=== PATIENT | male | born 1950 | race Caucasian/White ===

== ENCOUNTER 2023-10-18 18:08 | Inpatient (IN) ==
--- OUTSIDE RECORDS SUMMARY | 2023-10-18 18:11 | External Medical Summary | Summary of Care ---
Author Name Unknown Organization [facility] Address [address] [facility] [place] [address] Phone [phone] Care Team Providers Care Repair Order Clerk Name Role Phone Sriram Dale MD Primary Care Provider [phone] Reason for Visit * Reason Comments Follow Up Pt here for full ski n exam. Hx of non-melanoma skin cancer. No areas of concern. Encounter Details Date Type Department Care Team (Late st Contact Info) Description 07/03/2023 10:20 AM EDT Office Visit Dermatology [facility] [address] [place] [id number] Tiffany Weiss PA-C [address] [place] [address] Skin exam, screening for cancer*; Suhail's disease; Hx of basal cell carcinoma; Scar; Inflamed seborrheic keratosis Allergies Active Allergy Reactions Criticality Noted Date Comments Acetaminophen Medium 05/17/2004 rash Environmental 05/17/2004 documented as of this encounter (statuses as of 07/04/2023) Medications Medication Sig Dispensed Refills Start Date End Date Status tamsulosin (FLOMAX) 0.4 MG Capsule 0 10/31/2019 Active Azithromycin 250 MG Oral Tablet (Zithromax) 0 01/17/2021 Active Triamcinolone Acetonide 0.1 % External Cream (Aristocort)Indica tions:[place]'s disease Apply to lesions two times a day x 1 week and as needed for itching. 80 g 0 07/03/2023 Active Triamcinolone Acetonide 0.1 % External Cream (Aristocort)Indica tions:[place]'s disease Apply to rash on the back twice daily x 1 week and as needed for itching. 80 g 0 06/19/2022 07/03/2023 Discontinued( Refill) documented as of this encounter (statuses as of 07/04/2023) Active Problems Problem Noted Date Diagnosed Date Hx of basal cell carcinoma 02/16/2021 Overview: BCC L upper cutaneous lip 2018 and central upper back 2019 History of nonmelanoma skin cancer 11/27/2019 Overview: BCC central upper back 12/03 CERVICAL DISC DEGEN- congenital fusion C3-C4 Allergic disorder 05/17/2004 Overview: environmental documented as of this encounter (statuses as of 07/04/2023) Immunizations Name Administration Dates Next Due Seasonal Influenza, Split, IIV3, With Preserve, Inj 01/12/2010,12/15/2008 TD - Tetanus/Diptheria (ADULT) 03/17/1994 TDAP (age 11 and older)(Adacel) 10/05/2008 documented as of this encounter Social History Tobacco Use Types Packs/Day Years Used Date Smoking Tobacco: Never Alcohol Use Standard Drinks/Week Comments Yes 0 (1 standard drink = 0.6 oz pure alcohol) daily-glass of wine with dinner Sex and Gender Information Value Date Recorded Sex Assigned at Not on file Gender Identity Not on file Sexual Orientation Not on file Job Start Date Occupation Industry Not on file Not on file Not on file documented as of this encounter Progress Notes * Long Singh MD - 07/04/2023 9:43 PM EDT I have reviewed the charting notes and orders and associated images and agree with the assessment and plan of Tiffany Weiss PA-C I was available for consultation during and after the visit Long Singh MD 07/04/2023 9:43 PM * Tiffany Weiss PA-C - 07/03/2023 10:22 AM EDT SUBJECTIVE: History of Present Illness: Dirk Amin is a 72 year old male seen today for follow up of skin check. Date Last Appointment: 06/19/2022 (in office), Visit date not found (telemedicine) BCC L upper cutaneous lip 2018 and central upper back 2018 Hx Grovers, hasn't really needed it at all this year, uses triamcinolone 0.1% as needed Uses sunscreen New lesions of concern: L shoulder lesion for a few months REVIEW OF SYSTEMS: SKIN: No other new or changing moles. HEME/LYMPH: No new or enlarging lumps or bumps. MEDICA TIONS: Current Outpatient Medications Medication Sig Dispense Refill tamsulosin (FLOMAX) 0.4 MG Capsule Triamcinolone Acetonide 0.1 % External Cream (Aristocort) Apply to rash on the back twice daily x 1week and as needed for itching. 80 g 0 Azithromycin 250 MG Oral Tablet (Zithromax) (Patient not taking: Reported on 06/19/2022) No current facility-administered medications for this visit. ALLERG IES: Acetaminophen and Environmental OBJECTIVE: GEN: Healthy, alert, no distress, appears oriented, pleasant, and cooperative. SKIN: Detailed exam of hair, face including lids and lips, neck, chest, abdomen, back, bilateral upper ext. (arm, hand, fingers), bilateral lower ext. (leg, foot, toes), and palpation of scalp completed and are normal except: Scars- lip, upper back 2. R hip and L buttocks- tiny skin colored pedunculated papules 3. L upper back- open comedone ASSESS MENT/PLAN: Hx NMSC - no evidence of recurrence Discussed sun protection with patient including proper use of sunscreens and protective clothing. 2. ISKs. Cryosurgery explained to the patient, consent obtained, patient, site and procedure verified, and then cryotherapy was performed with Liquid Nitrogen via cryo spray unit to 2 lesions. Location noted in physical exam. Post op course explained. 3. Dilated pore of kaylin. Benign nature was discussed and no further intervention needed. Advised to call with any changes. 4. Hx of Grovers, triamcinolone as needed, refilled Follow-up: 1 year complex There were no barriers tolearning and no other pain was related to today's visit. The patient and/or person accompanying patient demonstrates understanding of the visit and treatment. Tiffany Weiss PA-C 07/03/2023 10:22 AM documented in this encounter Nursing Notes * Savana Warner LPN - 07/03/2023 10:16 AM EDT Patient identified by full name and date of Chief Complaint Patient presents with Follow Up Pt here for full skin exam. Hx of non-melanoma skin cancer. No areas of concern. documented in this encounter Plan of Treatment Upcoming Encounters Date Type Department Care Team (Late st Contact Info) Description 07/08/2024 1:40 PM EDT Office Visit Dermatology [facility] [address] [facility] [place] [address] Tiffany Weiss PA-C [address] [facility] [place] [address] Scheduled Procedures Name Priority Associated Diagnoses Date/Ti me COLONOSCOPY FLEXIBLE PROXIMA L DIAGNOSTIC Recall Special screening for malignant neoplasms, colon Health Maintenance Due Date Last Done Comments Depression Screening 1962 Hepatitis C Screening 1968 Cologuard 11/19/1995 Fecal Occult Blood Test 11/19/1995 Sigmoidoscopy 11/19/1995 Zoster Vaccines (1 of 2) 2000 Pneumococcal Vaccine: 65+ Years (1 of 1 - PCV) 11/19/2015 DTaP,Tdap,and Td Vaccines (2 - Td or Tdap) 10/05/2018 10/05/2008, 03/17/1994 Lipid Panel 07/09/2019 07/08/2014, 03/06/2009, 05/28/2004 COVID-19 Vaccine (1 - 2022-2 4 season) 2022 Influenza Vaccine (FLU shot) (Season Ended) 2023 01/12/2010, 12/15/2008 Colonoscopy 08/01/2024 08/01/2014, 08/01/2014, 08/02/2004 Colorectal Cancer Screening 08/01/2024 GARDASIL-HPV IMMUNIZATION SERIES Aged Out No longer eligible b ased on patient's age to complete this topic Hepatitis B Aged Out No longer eligi ble based on patient's age to complete this topic MENINGOCOCCAL (MENACTRA/MENVEO) Aged Out No longer eligible b ased on patient's age to complete this topic documented as of this encounter Medical Devices Not on filedocumented as of this encounter Procedures Procedure Name Priority Date/Time Associated Diagnosis Comments DERM IMAGE (SITE) Routine 07/03/2023 Inflamed seborrheic keratosis documented in this encounter Results * DERM IMAGE (SITE) (07/03/2023) 07/03/2023 Tiffany Weiss PA-C DIGITAL PHOTOGR APHY documented in this encounter Visit Diagnoses Diagnosis Skin exam, screening for cancer- Primary Screening for malignant neoplasm of the skin [place]'s disease Other specified dermatoses Hx of basal cell carcinoma Personal history of other malignant neoplasm of skin Scar Scar condition and fibrosis of skin Inflamed seborrheic keratosis documented in this encounter Care Teams Repair Order Clerk Relationship Specialty Start Date End Date Sriram Dale MD [address] [place] [address] PCP - General Family Medicine 07/04/14 documented as of this encounter
--- OUTSIDE RECORDS SUMMARY | 2023-10-18 18:11 | External Medical Summary | Continuity of Care Document ---
Author Name Unknown Organization [facility] Address [address] [place] [address] Phone [phone] Social History Type Date Description Comments Sex Unknown Tobacco Use Start: Unknown Never Smoked Cigarettes Tobacco Use Start: Unknown Never Smoked Cigars Tobacco Use Start: Unknown Never Smoked A Pipe Smoking Status Reviewed: 07/23/23 Never Smoked A Pipe Smokeless Tobacco Never Used Smokeless To bacco Allergies and adverse reactions Active Allergies Criticality Reaction | Severity Comments Date Acetaminophen Unable to assess criticality 07/23/2023 Environmental Unable to assess criticality 07/23/2023 Medications Active Medications SIG Qnty Indications Order ing Provider Date Triamcinolone Acetonide0.1% Cream Apply to lesions two times a day x 1 week and as needed for itching. 80units Unknown 07/03/2023 Tamsulosin HCL0.4mg Capsules Take one tab twice a day 60caps Daria Mcdaniel MD 10/31/2019 Sildenafil [id number] Tablets Take 100 mg once daily as needed 1 hour before sexual activity 18tabs Daria Mcdaniel MD Immunizations CPT Code Status Date Vaccine Lot # [id number] Given 01/12/2010 Influenza Vac, Split 3 Yr s And Up [address] Given 12/15/2008 Influenza Vac, Split 3 Yr s And Up [address] Given 10/05/2008 Tdap (Tetanus, diphtheria & acel. pertussis) Adacel or Boostrix 35896 Given 03/17/1994 Td (Tetanus & Diphtheria) Tenivac Vital Signs Date Vital Result Comment 07/23/2023 1:50pm BP Systolic 164 mmHg BP Diastolic 98 mmHg BP Systolic Recheck 162 mmHg BP Diastolic Recheck 90 mmHg Body Temperature 97.5 F Heart Rate 82 /min Respiratory Rate 14 /min Weight 177.50 lb Weight 80.514 kg Height 69 inches 5'9" BMI (Body Mass Index) 26.2 kg/m2 O2 % BldC Oximetry 98 % [place] Body Weight 160 lb Results Test Acquired Date Facility Test Result H/L Range N ote CBC W/Diff 07/23/2023 [facility]. [address] [place] [address] [phone] WBC 7.5 10^3/M3 3.1-9.2 RBC 4.56 10^6/M3 4.00-5.80 HGB 15.2 GR/DL 12.5-17.5 HCT 44.4 % 37.5-52.5 MCV 97.4 CUMICR High 82.6-95.8 MCH 33.4 PICOGR High 27.9-32.9 MCHC 34.3 % 32.6-35.4 RDW 14.3 % 11.4-14.6 PLT 280 10^3/M3 140-350 MPV 8.3 CUMICR 7.0-10.6 %Neut 63.9 % 40.0-75.0 %Lymph 24.4 % 17.0-45.0 %[place] 10.0 % 1.0-11.0 %Eos 0.8 % 0.0-6.0 %Baso 0.9 % 0.0-2.0 #Neut 4.8 10^3/M3 1.5-8.0 #Lymph 1.8 10^3/M3 0.8-3.2 #[place] 0.8 10^3/M3 0.0-0.8 #Eos 0.1 10^3/m3 0.0-0.4 #Baso 0.1 10^3/m3 0.0-0.2 Comp. Met 07/23/2023 [facility]. [address] [place] [address] [phone] Glucose 95 mg/dL 70-110 BUN 20 mg/dL 6-25 Creatinine 1.3 mg/dL 0.7-1.3 Sodium 144 mEq/L 135-145 Potassium 4.7 mEq/L 3.5-5.0 Chloride 105 mEq/L 95-107 Co-2 26 mEq/L 24-31 Alk Phos 65 IU/L 43-122 Alt(SGPT) 24 IU/L 10-40 Ast(Sgot) 29 IU/L 3-42 T.Bilirubin 0.6 mg/dL 0.1-1.3 Calcium 9.5 mg/dL 8.5-10.6 Tot.Protein 7.7 g/dL 5.8-8.0 Albumin 4.4 g/dL 3.0-5.2 Globulin 3.3 g/dL 2.0-3.4 GFR 58 ML/MIN/1.73SQM Low >60 Hba1c 07/23/2023 [facility] [address] [place], [place] [id number] [phone] A1c 5.40 % 4.70-6.50 1 Lipid 07/23/2023 [facility] [address] [place], [place] [id number] [phone] Cholesterol 260 mg/dL High 0-200 2 Triglyceride 103 mg/dL 0-150 3 HDLD 51 mg/dL See Comment 4 Measured LDL 207 mg/dL High 0-130 5 Calc VLDL 20.6 mg/dL See Comment 6 Chol/HDL 5.1 RATIO See Comment 7 Non-HDL 209 mg/dL See Comment 8 Laboratory test finding 07/23/2023 [facility]. [address] [place] [address] [phone] Psa2 12.7 ng/mL Critical high 0.0-4.0 TSH With Reflex 07/23/2023 [facility]. [address] [place] [address] [phone] TSH (Reflex) 1.45 uIU/mL 0.50-6.00 1 MEAN GLUCOSE IN mg/d L/A1c% POOR CONTROL FAIR CONTROL GOOD CONTROL EXCELLENT CONTROL 360-14 210-9 180-8 120-6 330-13 150-7 90-5 300-12 270-11 240-10 2 CHOLESTEROL Less than 200mg/dl Low risk 201-239 mg/dl Borderline risk Equal to or greater 240mg/dl High risk 3 TRIGLYCERIDES Less than 150mg/dl Normal 150-199mg/dl Borderline 200-499mg/dl High Greater than 500mg/dl Very High 4 HDL <40mg/dl Elevated Risk 41-59mg/dl Risk >=60mg/dl Least Risk 5 LDL <100mg/dl Optimal 100-129mg/dl Near Optimal 130-159mg/dl Borderline High 160-189mg/dl High >=190 Very High 6 VLDL Less than 30mg/dl Normal 7 CHOL/HDL <4.0 Optimal 4.0-5.0 Borderline >6.0 High Risk 8 NON-HDL 30mg/dl higher than LDL Target Procedures Date Code Description Status 07/23/2023 G0103 PSA Blood Screen Completed 07/23/2023 42699 Venipuncture Routine Complet ed Medical Devices Description No Information Available Encounters Type Date Location Provider Dx Diagnosis Office Visit 07/23/2023 2:00p [facility] Daria Mcdaniel MD N52.9 Male erectile dysfunction, unspecified R39.12 Poor urinary stream R03.0 Elevated blood-press ure reading, w/o diagnosis of htn Z13.220 Encounter for screen ing for lipoid disorders Z13.1 Encounter for screen ing for diabetes mellitus Z12.5 Encounter for screen ing for malignant neoplasm of prostate Z13.6 Encounter for screen ing for cardiovascular disorders Assessments Date Code Description Provider 07/23/2023 N52.9 Male erectile dysfunction, u nspecified Daria Mcdaniel MD 07/23/2023 R39.12 Weak urinary steam Daria wyatt MD 07/23/2023 R03.0 Elevated blood-p ressure reading, without diagnosis of hypertension Daria Mcdaniel MD 07/23/2023 Z13.220 Encounter for screening for lipoid disorders Daria Mcdaniel MD 07/23/2023 Z13.1 Encounter for screening for diabetes mellitus Daria Mcdaniel MD 07/23/2023 Z12.5 Encounter for sc reening for malignant neoplasm of prostate Daria Mcdaniel MD 07/23/2023 Z13.6 Encounter for sc reening for cardiovascular disorders Daria Mcdaniel MD Plan of Treatment Future Appointment(s):* 07/30/2023 10:30 am - Daria Mcdaniel MD at [facility] * 01/15/2024 2:00 pm - Daria Mcdaniel MD at [facility] 07/23/2023 - Daria Mcdaniel MD* N52.9 Male erectile dysfunction, unspecified* Comments:* Continue current medication as needed * R39.12 Weak urinary steam* Comments:* Continue current medication * R03.0 Elevated blood-pressure reading, without diagnosis of hypertension* Comments:* BP elevated today, Pt denies any symptoms Home BP readings within normal limit, ? white coat syndrome recommended to bring BP apparatus to clinic * Z13.220 Encounter for screening for lipoid disorders* Comments:* Lipid panel ordered * Z13.1 Encounter for screening for diabetes mellitus* Comments:* HbA1c ordered * Z12.5 Encounter for screening for malignant neoplasm of prostate* Comments:* will check PSA level * Z13.6 Encounter for screening for cardiovascular disorders Functional Status Description No Information Available Mental Status Description No Information Available Referrals Description No Information Available
--- OUTSIDE RECORDS SUMMARY | 2023-10-18 18:11 | External Medical Summary | Continuity of Care Document ---
Author Name Unknown Organization [facility] Address [address] [place] [address] Phone [phone] Problems Active Problems Provider Date Chronic kidney disease stage 3A Daria Mcdaniel MD Onset: 07/30/2023 Hyperlipidemia Daria Mcdaniel MD Onset: 2023 Social History Type Date Description Comments Sex [...] day 60caps Daria Mcdaniel MD 10/31/2019 Sildenafil [id number] Tablets Take 100 mg once daily as needed 1 hour before sexual activity 18tabs Daria Mcdaniel MD Immunizations CPT Code Status Date Vaccine Lot # [id number] Given 01/12/2010 Influenza Vac, Split 3 Yr s And Up [address] Given 12/15/2008 Influenza Vac, Split 3 Yr s And Up [address] Given 10/05/2008 Tdap (Tetanus, diphtheria & acel. pertussis) Adacel or Boostrix 34877 Given 03/17/1994 Td (Tetanus & Diphtheria) Tenivac [...] kg/m2 O2 % BldC Oximetry 98 % [place] Body Weight 160 lb Results Test Acquired Date Facility Test Result H/L Range N ote Laboratory test finding 09/01/2023 [facility]. [address] [place], [place] [id number] PSA Screen 11.6 ng/mL Critical high 0.0-4.0 CBC W/Diff 07/23/2023 [facility]. [address] [place] [address] [phone] WBC 7.5 10^3/M3 3.1-9.2 RBC 4.56 10^6/M3 4.00-5.80 HGB 15.2 GR/DL 12.5-17.5 HCT 44.4 % 37.5-52.5 MCV 97.4 CUMICR High 82.6-95.8 MCH 33.4 PICOGR High 27.9-32.9 MCHC 34.3 % 32.6-35.4 RDW 14.3 % 11.4-14.6 PLT 280 10^3/M3 140-350 MPV 8.3 CUMICR 7.0-10.6 %Neut 63.9 % 40.0-75.0 %Lymph 24.4 % 17.0-45.0 %[place] 10.0 % 1.0-11.0 %Eos 0.8 % 0.0-6.0 %Baso 0.9 % 0.0-2.0 #Neut 4.8 10^3/M3 1.5-8.0 #Lymph 1.8 10^3/M3 0.8-3.2 #[place] 0.8 10^3/M3 0.0-0.8 #Eos 0.1 10^3/m3 0.0-0.4 #Baso 0.1 10^3/m3 0.0-0.2 Comp. Met 07/23/2023 [facility]. [address] [place] [address] [phone] Glucose 95 mg/dL 70-110 BUN 20 mg/dL [...] GFR 58 ML/MIN/1.73SQM Low >60 Hba1c 07/23/2023 [facility] [address] [place], [place] [id number] [phone] A1c 5.40 % 4.70-6.50 1 Lipid 07/23/2023 [facility] [address] [place] [address] [phone] Cholesterol 260 mg/dL High 0-200 2 Triglyceride 103 mg/dL 0-150 3 HDLD 51 mg/dL See Comment 4 Measured LDL 207 mg/dL High 0-130 5 Calc VLDL 20.6 mg/dL See Comment 6 Chol/HDL 5.1 RATIO See Comment 7 Non-HDL 209 mg/dL See Comment 8 Laboratory test finding 07/23/2023 [facility] [address] [place] [address] [phone] Psa2 12.7 ng/mL Critical high 0.0-4.0 TSH With Reflex 07/23/2023 [facility] [address] [place] [address] [phone] TSH (Reflex) 1.45 uIU/mL 0.50-6.00 1 MEAN [...] LDL Target Procedures Date Code Description Status 09/01/2023 G0103 PSA Blood Screen Completed 09/01/2023 12970 Venipuncture Routine Complet ed 07/30/2023 G2012 Phone Evaluation/Management By Physician 21-30 Min Completed 07/23/2023 G0103 PSA Blood Screen Completed 07/23/2023 50587 Venipuncture Routine Complet ed Medical Devices Description No Information Available Encounters Type Date Location Provider Dx Diagnosis Office Visit 07/30/2023 10:15a Rohith Mcdaniel MD E78.5 Hyperlipidemi a, unspecified R97.20 Elevated prostate sp ecific antigen [PSA] N18.31 Chronic kidney disea se, stage 3a Office Visit 07/23/2023 2:00p Rohith brown MD N52.9 Male erectile dysfunction, unspecified R39.12 Poor urinary stream R03.0 Elevated blood-press ure reading, w/o diagnosis of htn Z13.220 Encounter for screen ing for lipoid disorders Z13.1 Encounter for screen ing for diabetes mellitus Z12.5 Encounter for screen ing for malignant neoplasm of prostate Z13.6 Encounter for screen ing for cardiovascular disorders Assessments Date Code Description Provider 09/01/2023 R97.20 Elevated prostate specific a ntigen [PSA] Lab - [place] 07/30/2023 E78.5 Hyperlipidemia, unspecified Daria Mcdaniel MD 07/30/2023 R97.20 Elevated prostate specific a ntigen [PSA] Daria Mcdaniel MD 07/30/2023 N18.31 Chronic kidney disease, stag e 3a Daria Mcdaniel MD 07/23/2023 N52.9 Male erectile dysfunction, u nspecified [...] Mcdaniel MD Plan of Treatment Future Appointment(s):* 01/15/2024 2:00 pm - Daria Mcdaniel MD at [place] 07/30/2023 - Daria Mcdaniel MD* E78.5 Hyperlipidemia, unspecified* Comments:* Pt declined to start on cholesterol medication at this time and will think about it . Pt verbalize understanding of being aware of risk of high cholesterol level including Cardiac and Stroke
Recommended to follow healthy diet and exercise * R97.20 Elevated prostate specific antigen [PSA]* Comments:* Discussed with the patient in detail of causes of high prostate specific antigen level. Will r epeat lab in 1 month Will consider urology appointment if PSA continue to be high * N18.31 Chronic kidney disease, stage 3a* Comments:* Recommended to avoid NSAID Drink plenty of fluid Will continue to monitor Functional Status Description No Information Available Mental Status Description No Information Available Referrals Description No Information Available
--- OUTSIDE RECORDS SUMMARY | 2023-10-18 18:11 | External Medical Summary | Continuity of Care Document ---
Author Name Unknown Organization [facility] Address [address] [place] [address] Phone [phone] Social History Type Date Description Comments Sex [...] day 60caps Daria Mcdaniel MD 10/31/2019 Sildenafil [id number] Tablets Take 100 mg once daily as needed 1 hour before sexual activity 18tabs Daria Mcdaniel MD Immunizations CPT Code Status Date Vaccine Lot # [id number] Given 01/12/2010 Influenza Vac, Split 3 Yr s And Up [address] Given 12/15/2008 Influenza Vac, Split 3 Yr s And Up [address] Given 10/05/2008 Tdap (Tetanus, diphtheria & acel. pertussis) Adacel or Boostrix 06931 Given 03/17/1994 Td (Tetanus & Diphtheria) Tenivac [...] kg/m2 O2 % BldC Oximetry 98 % [place] Body Weight 160 lb Results Test Acquired Date Facility Test Result H/L Range N ote CBC W/Diff 07/23/2023 [facility]. [address] [place] [address] [phone] WBC 7.5 10^3/M3 3.1-9.2 RBC 4.56 10^6/M3 4.00-5.80 HGB 15.2 GR/DL 12.5-17.5 HCT 44.4 % 37.5-52.5 MCV 97.4 CUMICR High 82.6-95.8 MCH 33.4 PICOGR High 27.9-32.9 MCHC 34.3 % 32.6-35.4 RDW 14.3 % 11.4-14.6 PLT 280 10^3/M3 140-350 MPV 8.3 CUMICR 7.0-10.6 %Neut 63.9 % 40.0-75.0 %Lymph 24.4 % 17.0-45.0 %[place] 10.0 % 1.0-11.0 %Eos 0.8 % 0.0-6.0 %Baso 0.9 % 0.0-2.0 #Neut 4.8 10^3/M3 1.5-8.0 #Lymph 1.8 10^3/M3 0.8-3.2 #[place]ings 0.8 10^3/M3 0.0-0.8 #Eos 0.1 10^3/m3 0.0-0.4 #Baso 0.1 10^3/m3 0.0-0.2 Comp. Met 07/23/2023 [facility]. [address] [place] [address] [phone] Glucose 95 mg/dL 70-110 BUN 20 mg/dL [...] GFR 58 ML/MIN/1.73SQM Low >60 Hba1c 07/23/2023 [facility]. [address] [place], [place] [id number] [phone] A1c 5.40 % 4.70-6.50 1 Lipid 07/23/2023 [facility]. [address] [place], [place] [address] [phone] Cholesterol 260 mg/dL High 0-200 2 Triglyceride 103 mg/dL 0-150 3 HDLD 51 mg/dL See Comment 4 Measured LDL 207 mg/dL High 0-130 5 Calc VLDL 20.6 mg/dL See Comment 6 Chol/HDL 5.1 RATIO See Comment 7 Non-HDL 209 mg/dL See Comment 8 Laboratory test finding 07/23/2023 [facility]. [address] [place] [address] [phone] Psa2 12.7 ng/mL Critical high 0.0-4.0 TSH With Reflex 07/23/2023 [facility]. [address] [place] [address] [phone] TSH (Reflex) 1.45 uIU/mL 0.50-6.00 1 MEAN [...] 07/23/2023 G0103 PSA Blood Screen Completed 07/23/2023 54845 Venipuncture Routine Complet ed Medical Devices Description No Information Available Encounters Type Date Location Provider Dx Diagnosis Office Visit 07/23/2023 2:00p [place] Daria Mcdaniel MD N52.9 Male erectile dysfunction, [...] 2:00 pm - Daria Mcdaniel MD at [place] Functional Status Description No Information Available Mental Status Description No Information Available Referrals Description No Information Available
--- OUTSIDE RECORDS SUMMARY | 2023-10-18 18:11 | External Medical Summary | Summary of Care ---
Author Name Unknown Organization [facility] Address [address] [facility] [facility] [address] Phone [phone] Care Team Providers Care Financial Foundations Representative Name Role Phone Sriram Dale MD Primary Care Provider [phone] Reason for Visit * Reason Comments Follow Up Pt here for full ski n exam. Hx of non-melanoma skin cancer. No areas of concern. Encounter Details Date Type Department Care Team (Late st Contact Info) Description 07/03/2023 10:20 AM EDT Office Visit Dermatology [facility] [address] [place] [address] Tiffany Weiss PA-C [address] [place] [address] Skin exam, screening for cancer*; Suhail's disease; Hx of basal cell carcinoma; Scar; Inflamed seborrheic keratosis Allergies Active Allergy Reactions Criticality Noted Date Comments Acetaminophen Medium 05/17/2004 rash Environmental 05/17/2004 documented as of this encounter (statuses as of 07/03/2023) Medications Medication Sig Dispensed Refills Start Date End Date Status tamsulosin (FLOMAX) 0.4 MG Capsule 0 10/31/2019 Active Azithromycin 250 MG Oral Tablet (Zithromax) 0 01/17/2021 Active Triamcinolone Acetonide 0.1 % External Cream (Aristocort)Indica tions:Jumping Branch's disease Apply to lesions two times a day x 1 week and as needed for itching. 80 g 0 07/03/2023 Active Triamcinolone Acetonide 0.1 % External Cream (Aristocort)Indica tions:Jumping Branch's disease Apply to rash on the back twice daily x 1 week and as needed for itching. 80 g 0 06/19/2022 07/03/2023 Discontinued( Refill) documented as of this encounter (statuses as of 07/03/2023) Active Problems Problem Noted Date Diagnosed Date Hx of basal cell carcinoma 02/16/2021 Overview: BCC L upper cutaneous lip 2018 and central upper back 2019 History of nonmelanoma skin cancer 11/27/2019 Overview: BCC central upper back 12/03 CERVICAL DISC DEGEN- congenital fusion C3-C4 Allergic disorder 05/17/2004 Overview: environmental documented as of this encounter (statuses as of 07/03/2023) Immunizations Name Administration Dates Next Due Seasonal Influenza, Split, IIV3, With Preserve, Inj 01/12/2010,12/15/2008 TDAP (age 11 and older)(Adacel) 10/05/2008 documented [...] as of this encounter Progress Notes * Tiffany Weiss PA-C - 07/03/2023 10:22 AM EDT SUBJECTIVE: History of Present Illness: Dirk Amin is a 72 year old male seen today for follow up of skin check. Date Last Appointment: 06/19/2022 (in office), Visit date not found (telemedicine) BCC L upper cutaneous lip 2018 and central upper back 2019 Hx [place], hasn't really needed it at [...] call with any changes. 4. Hx of Praveen, triamcinolone as needed, refilled Follow-up: 1 year [...] 07/08/2024 1:40 PM EDT Office Visit Dermatology [facility] [address] [place] [address] Tiffany Weiss PA-C [address] [place] [address] Scheduled Procedures Name Priority [...] Not on filedocumented as of this encounter Visit Diagnoses Diagnosis Skin exam, screening for cancer- Primary Screening for malignant neoplasm of the skin Jumping Branch's disease Other specified dermatoses Hx of basal cell carcinoma Personal history of other malignant neoplasm of skin Scar Scar condition and fibrosis of skin Inflamed seborrheic keratosis documented in this encounter Care Teams Financial Foundations Representative Relationship Specialty Start Date End Date Sriram Dale MD [address] [place] [address] PCP - General Family Medicine 07/04/14 documented as of this encounter
--- OUTSIDE RECORDS SUMMARY | 2023-10-18 18:11 | External Medical Summary | Continuity of Care Document ---
Author Name Unknown Organization [facility] Address [address] [place] [address] Phone [phone] Social History Type Date Description Comments Sex [...] day 60caps Daria Mcdaniel MD 10/31/2019 Sildenafil [id number] Tablets Take 100 mg once daily as needed 1 hour before sexual activity 18tabs Daria Mcdaniel MD Immunizations CPT Code Status Date Vaccine Lot # [id number] Given 01/12/2010 Influenza Vac, Split 3 Yr s And Up [address] Given 12/15/2008 Influenza Vac, Split 3 Yr s And Up [address] Given 10/05/2008 Tdap (Tetanus, diphtheria & acel. pertussis) Adacel or Boostrix 97699 Given 03/17/1994 Td (Tetanus & Diphtheria) Tenivac [...] kg/m2 O2 % BldC Oximetry 98 % [place] Body Weight 160 lb Results Test Acquired Date Facility Test Result H/L Range N [place] Laboratory test finding 07/23/2023 [facility]. [address] [place] [address] [phone] Psa2 <pending> Procedures Date Code Description Status 07/23/2023 47297 Venipuncture Routine Complet ed Medical Devices Description No Information Available Encounters Type Date Location Provider Dx Diagnosis Office Visit 07/23/2023 2:00p Rohith Mcdaniel MD N52.9 Male erectile dysfunction, unspecified R39.12 Poor urinary stream R03.0 Elevated blood-press ure reading, w/o diagnosis of htn Z13.220 Encounter for screen ing for lipoid disorders Z13.1 Encounter for screen ing for diabetes mellitus Z12.5 Encounter for screen ing for malignant neoplasm of prostate Assessments Date Code Description Provider 07/23/2023 N52.9 [...] malignant neoplasm of prostate Daria Mcdaniel MD Plan of Treatment Future Appointment(s):* 01/21/2024 2:00 pm - Daria Mcdaniel MD at [facility] 07/23/2023 - Daria Mcdaniel MD* N52.9 Male [...] of prostate* Comments:* will check PSA level Functional Status Description No Information Available Mental Status Description No Information Available Referrals Description No Information Available
--- OUTSIDE RECORDS SUMMARY | 2023-10-18 18:11 | External Medical Summary | Continuity of Care Document ---
Author Name Unknown Organization [facility] Address [address] [place] [address] Phone [phone] Problems Active Problems Provider Date Chronic kidney [...] day 60caps Daria Mcdaniel MD 10/31/2019 Sildenafil [id number] Tablets Take 100 mg once daily as needed 1 hour before sexual activity 18tabs Daria Mcdaniel MD Immunizations CPT Code Status Date Vaccine Lot # [id number] Given 01/12/2010 Influenza Vac, Split 3 Yr s And Up 11233 Given 12/15/2008 Influenza Vac, Split 3 Yr s And Up [address] Given 10/05/2008 Tdap (Tetanus, diphtheria & acel. pertussis) Adacel or Boostrix 95772 Given 03/17/1994 Td (Tetanus & Diphtheria) Tenivac [...] kg/m2 O2 % BldC Oximetry 98 % [place] Body Weight 160 lb Results Test Acquired Date Facility Test Result H/L Range N [place]te Laboratory test finding 09/01/2023 [facility]. [address] [place], [place] [id number] PSA Screen 11.6 ng/mL Critical high 0.0-4.0 CBC W/Diff 07/23/2023 [facility]. [address] [place] [address] [phone] WBC 7.5 10^3/M3 3.1-9.2 RBC 4.56 10^6/M3 4.00-5.80 HGB 15.2 GR/DL 12.5-17.5 HCT 44.4 % 37.5-52.5 MCV 97.4 CUMICR High 82.6-95.8 MCH 33.4 PICOGR High 27.9-32.9 MCHC 34.3 % 32.6-35.4 RDW 14.3 % 11.4-14.6 PLT 280 10^3/M3 140-350 MPV 8.3 CUMICR 7.0-10.6 %Neut 63.9 % 40.0-75.0 %Lymph 24.4 % 17.0-45.0 %[place] 10.0 % 1.0-11.0 %Eos 0.8 % 0.0-6.0 %Baso 0.9 % 0.0-2.0 #Neut 4.8 10^3/M3 1.5-8.0 #Lymph 1.8 10^3/M3 0.8-3.2 #[place] 0.8 10^3/M3 0.0-0.8 #Eos 0.1 10^3/m3 0.0-0.4 #Baso 0.1 10^3/m3 0.0-0.2 Comp. Met 07/23/2023 [facility]. [address] [place] [address] [phone] Glucose 95 mg/dL 70-110 BUN 20 mg/dL [...] GFR 58 ML/MIN/1.73SQM Low >60 Hba1c 07/23/2023 [facility]. [address] [place], [place] [id number] [phone] A1c 5.40 % 4.70-6.50 1 Lipid 07/23/2023 [facility]. [address] [place] [address] [phone] Cholesterol 260 mg/dL High 0-200 2 Triglyceride 103 mg/dL 0-150 3 HDLD 51 mg/dL See Comment 4 Measured LDL 207 mg/dL High 0-130 5 Calc VLDL 20.6 mg/dL See Comment 6 Chol/HDL 5.1 RATIO See Comment 7 Non-HDL 209 mg/dL See Comment 8 Laboratory test finding 07/23/2023 [facility]. [address] [place] [address] [phone] Psa2 12.7 ng/mL Critical high 0.0-4.0 TSH With Reflex 07/23/2023 [facility]. [address] [place] [address] [phone] TSH (Reflex) 1.45 uIU/mL 0.50-6.00 1 MEAN [...] 09/01/2023 G0103 PSA Blood Screen Completed 09/01/2023 54701 Venipuncture Routine Complet ed 07/30/2023 G2012 Phone Evaluation/Management By Physician 21-30 Min Completed 07/23/2023 G0103 PSA Blood Screen Completed 07/23/2023 40199 Venipuncture Routine Complet ed Medical Devices Description [...] specific a ntigen [PSA] Daria Mcdaniel MD 09/01/2023 R97.20 Elevated prostate specific a ntigen [PSA] Lab - [place] 09/01/2023 Z12.5 Encounter for sc reening for malignant neoplasm of prostate Daria Mcdaniel MD 07/30/2023 E78.5 Hyperlipidemia, unspecified Daria Mcdaniel MD [...] 2:00 pm - Daria Mcdaniel MD at [place] 07/30/2023 - Daria Mcdaniel MD* E78.5 Hyperlipidemia, [...]
--- OUTSIDE RECORDS SUMMARY | 2023-10-18 18:11 | External Medical Summary | Continuity of Care Document ---
Author Name Unknown Organization [facility] Address [address] [place] [address] Phone [phone] Social History Type Date Description Comments Sex [...] day 60caps Daria Mcdaniel MD 10/31/2019 Sildenafil [id number] Tablets Take 100 mg once daily as needed 1 hour before sexual activity 18tabs Daria Mcdaniel MD Immunizations CPT Code Status Date Vaccine Lot # [id number] Given 01/12/2010 Influenza Vac, Split 3 Yr s And Up [address] Given 12/15/2008 Influenza Vac, Split 3 Yr s And Up [address] Given 10/05/2008 Tdap (Tetanus, diphtheria & acel. pertussis) Adacel or Boostrix 42344 Given 03/17/1994 Td (Tetanus & Diphtheria) Tenivac [...] kg/m2 O2 % BldC Oximetry 98 % [place] Body Weight 160 lb Results Test Acquired Date Facility Test Result H/L Range N [place]te CBC W/Diff 07/23/2023 [facility]. [address] [place] [address] [phone] WBC 7.5 10^3/M3 3.1-9.2 RBC 4.56 10^6/M3 4.00-5.80 HGB 15.2 GR/DL 12.5-17.5 HCT 44.4 % 37.5-52.5 MCV 97.4 CUMICR High 82.6-95.8 MCH 33.4 PICOGR High 27.9-32.9 MCHC 34.3 % 32.6-35.4 RDW 14.3 % 11.4-14.6 PLT 280 10^3/M3 140-350 MPV 8.3 CUMICR 7.0-10.6 %Neut 63.9 % 40.0-75.0 %Lymph 24.4 % 17.0-45.0 %[place] 10.0 % 1.0-11.0 %Eos 0.8 % 0.0-6.0 %Baso 0.9 % 0.0-2.0 #Neut 4.8 10^3/M3 1.5-8.0 #Lymph 1.8 10^3/M3 0.8-3.2 #[place] 0.8 10^3/M3 0.0-0.8 #Eos 0.1 10^3/m3 0.0-0.4 #Baso 0.1 10^3/m3 0.0-0.2 Comp. Met 07/23/2023 [facility]. [address] [place] [address] [phone] Glucose 95 mg/dL 70-110 BUN 20 mg/dL [...] GFR 58 ML/MIN/1.73SQM Low >60 Hba1c 07/23/2023 [facility]. [address] [place], [place] [address] [phone] A1c 5.40 % 4.70-6.50 1 Lipid 07/23/2023 [facility]. [address] [place], [place] [address] [phone] Cholesterol 260 mg/dL High 0-200 2 Triglyceride 103 mg/dL 0-150 3 HDLD 51 mg/dL See Comment 4 Measured LDL 207 mg/dL High 0-130 5 Calc VLDL 20.6 mg/dL See Comment 6 Chol/HDL 5.1 RATIO See Comment 7 Non-HDL 209 mg/dL See Comment 8 Laboratory test finding 07/23/2023 [facility]. [address] [place] [address] [phone] Psa2 12.7 ng/mL Critical high 0.0-4.0 TSH With Reflex 07/23/2023 [facility]. [address] [place] [address] [phone] TSH (Reflex) 1.45 uIU/mL 0.50-6.00 1 MEAN [...] Target Procedures Date Code Description Status 07/23/2023 11335 Venipuncture Routine Complet ed Medical Devices Description No Information Available Encounters Type Date Location Provider Dx Diagnosis Office Visit 07/23/2023 2:00p [facility] N52.9 Male erectile dysfunction, unspecified [...] 2:00 pm - Daria Mcdaniel MD at [facility] 07/23/2023 - Daria Mcdaniel MD* N52.9 Male [...]
--- OUTSIDE RECORDS SUMMARY | 2023-10-18 18:11 | External Medical Summary | Continuity of Care Document ---
Author Name Unknown Organization [facility] Address [address] [place] [address] Phone [phone] Social History Type Date Description Comments Sex [...] day 60caps Daria Mcdaniel MD 10/31/2019 Sildenafil [id number] Tablets Take 100 mg once daily as needed 1 hour before sexual activity 18tabs Daria Mcdaniel MD Immunizations CPT Code Status Date Vaccine Lot # [id number] Given 01/12/2010 Influenza Vac, Split 3 Yr s [place] [address] Given 12/15/2008 Influenza Vac, Split 3 Yr s And Up [address] Given 10/05/2008 Tdap (Tetanus, diphtheria & acel. pertussis) Adacel or Boostrix 47236 Given 03/17/1994 Td (Tetanus & Diphtheria) Tenivac [...] kg/m2 O2 % BldC Oximetry 98 % [place] Body Weight 160 lb Results Test Acquired Date Facility Test Result H/L Range N ote Laboratory test finding 07/23/2023 [facility]. [address] [place] [address] [phone] Psa2 <pending> Procedures Date Code Description Status 07/23/2023 43850 Venipuncture Routine Complet ed Medical Devices Description [...] 2:00 pm - Daria Mcdaniel MD at [facility] 07/23/2023 - Daria Mcdaniel MD* N52.9 Male [...]
--- OUTSIDE RECORDS SUMMARY | 2023-10-18 18:11 | External Medical Summary | Continuity of Care Document ---
Author Name Unknown Organization [facility] Address [address] [place] [address] Phone [phone] Problems Active Problems Provider Date Chronic kidney [...] day 60caps Daria Mcdaniel MD 10/31/2019 Sildenafil [id number] Tablets Take 100 mg once daily as needed 1 hour before sexual activity 18tabs Daria Mcdaniel MD Immunizations CPT Code Status Date Vaccine Lot # [id number] Given 01/12/2010 Influenza Vac, Split 3 Yr s [place] [address] Given 12/15/2008 Influenza Vac, Split 3 Yr s And Up [address] Given 10/05/2008 Tdap (Tetanus, diphtheria & acel. pertussis) Adacel or Boostrix 74680 Given 03/17/1994 Td (Tetanus & Diphtheria) Tenivac [...] kg/m2 O2 % BldC Oximetry 98 % [employer] Body Weight 160 lb Results Test Acquired Date Facility Test Result H/L Range N ote CBC W/Diff 07/23/2023 [facility] Lab. [address] [place] [address] [phone] WBC 7.5 10^3/M3 3.1-9.2 RBC 4.56 10^6/M3 4.00-5.80 HGB 15.2 GR/DL 12.5-17.5 HCT 44.4 % 37.5-52.5 MCV 97.4 CUMICR High 82.6-95.8 MCH 33.4 PICOGR High 27.9-32.9 MCHC 34.3 % 32.6-35.4 RDW 14.3 % 11.4-14.6 PLT 280 10^3/M3 140-350 MPV 8.3 CUMICR 7.0-10.6 %Neut 63.9 % 40.0-75.0 %Lymph 24.4 % 17.0-45.0 %[place] 10.0 % 1.0-11.0 %Eos 0.8 % 0.0-6.0 %Baso 0.9 % 0.0-2.0 #Neut 4.8 10^3/M3 1.5-8.0 #Lymph 1.8 10^3/M3 0.8-3.2 #[place] 0.8 10^3/M3 0.0-0.8 #Eos 0.1 10^3/m3 0.0-0.4 #Baso 0.1 10^3/m3 0.0-0.2 Comp. Met 07/23/2023 [facility]. [address] [place] [address] [phone] Glucose 95 mg/dL 70-110 BUN 20 mg/dL [...] GFR 58 ML/MIN/1.73SQM Low >60 Hba1c 07/23/2023 [facility]. [address] [place] [address] [phone] A1c 5.40 % 4.70-6.50 1 Lipid 07/23/2023 [facility]. [address] [place] [address] [phone] Cholesterol 260 mg/dL High 0-200 2 Triglyceride 103 mg/dL 0-150 3 HDLD 51 mg/dL See Comment 4 Measured LDL 207 mg/dL High 0-130 5 Calc VLDL 20.6 mg/dL See Comment 6 Chol/HDL 5.1 RATIO See Comment 7 Non-HDL 209 mg/dL See Comment 8 Laboratory test finding 07/23/2023 [facility]. [address] [place], [place] [address] [phone] Psa2 12.7 ng/mL Critical high 0.0-4.0 TSH With Reflex 07/23/2023 [facility]. [address] [place], [place] [address] [phone] TSH (Reflex) 1.45 uIU/mL 0.50-6.00 1 MEAN [...] LDL Target Procedures Date Code Description Status 07/30/2023 G2012 Phone Evaluation/Management By Physician 21-30 Min Completed 07/23/2023 G0103 PSA Blood Screen Completed 07/23/2023 20141 Venipuncture Routine Complet ed Medical Devices Description [...] cardiovascular disorders Assessments Date Code Description Provider 07/30/2023 E78.5 Hyperlipidemia, unspecified Daria Mcdaniel MD [...] 2:00 pm - Daria Mcdaniel MD at [facility] 07/30/2023 - Daria Mcdaniel MD* E78.5 Hyperlipidemia, [...]
[2023-10-18] MEDS: fentaNYL citrate PF 100 MCG/2 ML VIAL ONE ×2 (18:24→19:59)
[2023-10-18] MEDS: HEPARIN SOD (PORCINE) 1000 UNIT/ML IV ONE (18:24)
[2023-10-18] MEDS: TICAGRELOR 90 MG TAB PO ONE (18:24)
[2023-10-18] MEDS: ONDANSETRON INJ 2 MG/ML 2 ML VIAL ONE (18:37)
[2023-10-18] MEDS: ONDANSETRON INJ 2 MG/ML 2 ML VIAL IV STA (18:37)
--- NOTE | 2023-10-18 18:38 | XRay Report ---
XR chest 1V portable CLINICAL HISTORY: Chest pain, nonspecific TECHNIQUE: Single frontal radiograph of the chest was obtained. Comparison: None available at the time of this dictation. FINDINGS: No lines and tubes are seen. Calcified aortic knob is seen. The lungs are clear. No evidence of pleur al effusion or pneumothorax. IMPRESSION: No acute chest disease. ACT 112: Negative or not required by law. Electronically signed by: Reji Correia M.D. 10/18/2023 6:36 PM
[2023-10-18 18:39] LABS: iSTAT Creatinine 1.5 mg/dl (0.6-1.3); iSTAT Hemoglobin 13.6 g/dl (14.0-18.0); iSTAT Ionized Calcium 1.04 mmol/l (1.12-1.32); iSTAT Potassium 3.9 mmol/L (3.3-5.0)
[2023-10-18 18:58] LABS: Basophils # (auto) 0.05 K/uL (0.00-0.20); Basophils % (auto) 0.6 %; Eosinophils # (auto) 0.07 K/uL (0.00-0.50); Eosinophils % (auto) 0.8 %; Hematocrit (blood only) 41.3 % (42.0-52.0); Hemoglobin 14.1 g/dl (14.0-18.0); Immature Granulocytes # (auto) 0.02 K/uL (0.01-0.20); Immature Granulocytes % (auto) 0.2 %; Lymphocytes % (auto) 37.5 %; Mean Corpuscular Hemoglobin 31.3 pg (25.0-34.0); Mean Corpuscular Hgb Conc 34.1 g/dL (32.0-36.0); Mean Corpuscular Volume 91.8 fL (80.0-100.0); Mean Platelet Volume 9.3 fL (9.4-12.4); Monocytes # (auto) 0.74 K/uL (0.11-0.59); Monocytes % (auto) 8.4 %; Neutrophils # (auto) 4.61 K/uL (1.40-6.50); Neutrophils % (auto) 52.5 %; Platelet Count 262 K/uL (130-400); RDW Standard Deviation 44.1 fL (36.4-46.3); White Blood Count 8.79 K/ul (4.8-10.8)
[2023-10-18 19:16] LABS: Albumin Globulin Ratio 1.3 (0.9-2); Albumin Level 3.8 gm/dl (3.4-5.0); BUN Creatinine Ratio 14.4 (10-20); Bilirubin,Total 0.5 mg/dl (0.2-1.0); Calcium 9.1 mg/dl (8.6-10.3); Creatinine Clr Calc Pharmacy 55.6 ml/min; Est GFR (African American) 58.3 ml/min; Est GFR (Non-African American) 50.3 ml/min; Globulin 2.9 gm/dl (2.5-4.0); Magnesium 1.8 mg/dl (1.7-2.4); Total Protein 6.7 gm/dl (6.0-8.3)
[2023-10-18 19:22] LABS: Troponin I High Sensitivity 3.6 pg/ml (0-20)
[2023-10-18 19:28] LABS: Partial Thromboplastin Ratio 0.9; Partial Thromboplastin Time 23 Seconds (21-31)
[2023-10-18 19:32] LABS: Thyroid Stimulating Hormone 1.466 uIu/ml (0.300-4.500)
[2023-10-18] MEDS: DOPamine 400MG / 250ML D5W (Cath Lab Use ONLY) IV ONE (19:44)
[2023-10-18] MEDS: AMIODARONE HCL INJ 50 MG/ML 3 ML VIAL (CATH LAB USE ONLY) IV ONE (19:44)
[2023-10-18] MEDS: NITROGLYCERIN/D5W 100MCG/ML 20ML SYR ONE (19:45)
[2023-10-18] MEDS: niCARdipine HCL INJ 2.5 MG/ML 10 ML AMP ONE (19:45)
[2023-10-18] MEDS: MIDAZOLAM HCL 1 MG/ML 2ML VIAL ONE (19:57)
[2023-10-18] MEDS ORDERED: EPTIFIBATIDE BOLUS/DRIP IV STA (20:14)
[2023-10-18] MEDS ORDERED: NITROGLYCERIN SL 0.4 MG/TAB TAB SL PRN (20:14)
[2023-10-18] MEDS ORDERED: Heparin IV Adult Wt-Based Standard *NO* INITIAL Bolus Protocol IV STA (20:31)
--- NOTE | 2023-10-18 20:33 | Pre Anesthesia Assessment ---
Date of Service October 18, 2023 Pre Sedation Assessment Vital Signs Temp Pulse Resp BP Pulse Ox O2 Del Method O2 Flow Rate 10/18/23 18:27 72 29 H 10/18/23 18:25 109/64 10/18/23 18:25 109/64 10/18/23 18:25 109/64 10/18/23 18:22 108/68 10/18/23 18:22 98 Room Air 10/18/23 18:22 98 Room Air 0 10/18/23 18:18 108/76 10/18/23 18:18 68 32 H 10/18/23 18:18 71 10/18/23 18:15 36.4 C L 67 28 H 108/68 97 Room Air Cardiovascular RRR, no murmur, no edema Respiratory normal respiratory effort, lungs clear to auscultation Pre-Sedation Airway Assessment Smoking Status: Never smoker MALLAMPATI 2 ASA 4 Notes The planned sedation has been discussed with the patient. Informed Consent was obtained. I have identified the patient, determined the appropriateness of sedation and have assessed the patient immediately prior to the procedure. All medicine(s) and interventions are by my order.
--- NOTE | 2023-10-18 20:36 | Post Anesthesia Assessment ---
Date of Service October 18, 2023 Post Sedation Assessment Vital Signs Temp Pulse Resp BP Pulse Ox O2 Del Method O2 Flow Rate 10/18/23 18:27 72 29 H 10/18/23 18:25 109/64 10/18/23 18:25 109/64 10/18/23 18:25 109/64 10/18/23 18:22 108/68 10/18/23 18:22 98 Room Air 10/18/23 18:22 98 Room Air 0 10/18/23 18:18 108/76 10/18/23 18:18 68 32 H 10/18/23 18:18 71 10/18/23 18:15 36.4 C L 67 28 H 108/68 97 Room Air Recovery Score Activity: Moves 4 extremities Respiration: Deep Breath/Cough Circulation: +/-20% PreAnes Value Consciousness: Fully Awake Oxygen Saturation: > 92% On Room Air Discharge Sedation Level of Care: Fast Track Phase II Post Sedation Plan On clinical assessment, the patient appears to have tolerated the sedation without complications. Patient is recovering as anticipated. Patient will continue to be monitored by nursing and may be discharged when sedation discharge criteria are met per below protocol. Upon Completions of procedure up to 15 minutes continue every 5 minute vital signs and the P.A.R. score; then discharge to a Phase I or Fast Track to Phase II per the following guidelines: * Discharge Patient to appropriate Phase II area if PAR is 8 or greater or return to pre- procedure baseline. The post - procedure orders will be as directed. * If PAR score is less than 8 or not return to pre-procedure baseline then patient will follow Phase I monitoring till PAR is reached for Phase II. The Phase I may be done in procedure room or may call to secure a Phase I area. * If naloxone or flumazenil are used for reversal, hold in Phase I for continued monitoring from when last reversal dose was given for a minimum of 60 minutes or longer pending the nurse and/or physician discretion of patient condition before discharge to Phase II. Please call the Sedation Physician to re-evaluate and complete post-note for discharge to Phase II area. Do NOT discharge from procedure sedation or Phase 1 until post- sedation evaluation note is complete by procedure /sedation MD Sedation Discharge Instructions to be given to the patient at discharge to home. [facility] Procedure Codes (Charges) Indication for Procedure Indication for procedure: LAVELL-LATERAL STEMI Sedation/Anesthesia Procedure 1: Sedation/Anesthesia: 52789 Mod Sedation by the same physician;Init15 Min Child Age 5 & Up (INITIAL 15 MIN, START 1847) Total Sedation Time (minutes): 86 Procedure 2: Sedation/Anesthesia: 97256 Mod Sedation by the same physician; Ea [id number] Minutes (ADDITIONAL 71 MIN, END 2013) Total Sedation Time (minutes): 86
[2023-10-18] MEDS: HEPARIN (PORCINE) 1000 UNIT/ML 10 ML (CATH LAB USE ONLY) ONE (20:37)
[2023-10-18] MEDS: PHENYLEPHRINE 100MCG/ML 5ML SYR ONE (20:38)
[2023-10-18] MEDS: OPTIRAY 350 ONE (20:38)
[2023-10-18] MEDS: EPTIFIBATIDE 2 MG/ML 10 ML VIAL (CATH LAB USE ONLY) IV ONE (20:38)
[2023-10-18] MEDS: EPTIFIBATIDE 0.75 MG/ML 75MG VIAL (CATH LAB USE ONLY) IV ONE (20:39)
--- NOTE | 2023-10-18 20:47 | Cardiac Catheterization ---
ACC Data: Manufacturer Representative Cardiac Status Clinical evaluation leading to the procedure CAD Presenation: STEMI Anginal Classification: CCS IV Heart Failure: No Cardiogenic Shock within 24 Hours: Yes (Borderline) Cardiac Arrest within 24 Hours: No Imaging Studies Past 6 Months: No STEMI OR Non-STEMI Symptom Onset Date: 10/18/23 Symptom Onset Time: 17:15 Thrombolytics: No Coronary Anatomy Dominant: Right Left Main (% Stenosis): Distal (30%) LAD (% Stenosis): Proximal (100%) D1 (% Stenosis): Ostial (Jailed) D2 (% Stenosis): Normal Circumflex (% Stenosis): Proximal (30%) and Distal (Up to 40%) OM1 (% Stenosis): Normal (Diffuse less than 30%) OM2 (% Stenosis): Proximal (30 to 50%) L PL1 (% Stenosis): Normal RCA (% Stenosis): Mid (30%) R PDA (% Stenosis): Normal R PL1 (% Stenosis): Normal Diagnostic Physicians Name: Uzair Daigle MD, PhD Closure Device Percutaneous Entry Location: Radial Closure Device: Radial Band Recommendations: Medical Therapy and/or Counseling and PCI without planned CABG PCI Indication: PCI for STEMI - Unstable First Noted: First EKG Lesion Segment Name: Proximal LAD Culprit Artery: Yes Stenosis Prior to Rx (%): 100% Chronic Total Occlusion: No Pre-Procedure GARRET Flow: 0 Previously Treated Lesion: No Lesion Complexity: High/C Lesion Length (mm): 12 mm Thrombus Present: Yes Bifurcation Lesion: Yes Guidewire Across Lesion: Yes Lesion #2 Segment Name: Ostial D1 (jailed and thrombosed) Culprit Artery: Yes Stenosis Prior to Rx (%): 100% Chronic Total Occlusion: No Pre-Procedure GARRET Flow: 0 Previously Treated Lesion: No Lesion Complexity: Non-High/Non-C Lesion Length (mm): 2 mm Thrombus Present: Yes Guidewire Across Lesion: Yes Intraprocedure Events Significant Disection: No Perforation: No Cardiac Cath Procedure Full Procedure Date October 18, 2023 Pre-Procedure Diagnosis Pre-Procedure Diagnosis: STEMI AUC Score AUC Score: 09 Post-Procedure Diagnosis Post-Procedure Diagnosis: Severe CAD and Successful PCI Procedure(s) Performed Procedure(s) Performed: Coronary Angiography and Drug Eluting Stent Oracle Financial Application Developer Uzair Daigle MD, PhD Estimated Blood Loss Estimated Blood Loss: 15 cc Medication(s) Medication(s): Dopamine, Fentanyl, Heparin, Integrilin, Lidocaine 1%, Donald- Synephrine, Nicardipine, Nitroglycerin and Versed Medication(s): Plus amiodarone Summary of Findings Brief description: Patient was brought to the cardiac catheterization suite where he was shaved and prepped in a sterile fashion. Sedated using IV Versed and fentanyl. Soft tissues of the right wrist were anesthetized using 2 mL of 1% Xylocaine. The right radial artery was accessed with a modified Seldinger technique and a 6 Armenian radial artery glide sheath was placed. All catheters were advanced and exchanged over a 0.035 J-tip wire. Patient was provided antispasmodics including nicardipine and nitroglycerin. Prior to arrival in the Manufacturer Representative the patient had received 180 mg p.o. Brilinta, 5000 units IV heparin, and aspirin 325 mg in route via ambulance prior to ED arrival. Because the patient had EKG evidence of proximal LAD stenosis we immediately started with a guide catheter and in anticipation of immediate PCI. A 6 Armenian EBU 3.0 guide catheter was used to engage the left main coronary. Coronary angiography was performed in orthogonal views. ACT was checked and additional heparin was provided intermittently throughout the course of this study in order to maintain therapeutic anticoagulation. A BMW reversal guidewire was advanced and with some difficulty was eventually positioned distally in the LAD. LAD lesion was then predilated with a 2.0 x 8 mm mini trek balloon at 8 elbert. Patient developed AIVR and hypotension. He was therefore provided amiodarone bolus of 150 mg and dopamine drip at 5 mcg/kg/min. A 2.5 x 12 mm trek balloon was then inserted and the lesion was dilated twice to 8 elbert. He remained mildly hypotensive and a normal saline bolus of 500 mL was given and the dopamine was increased to 7.5 mcg/kg/min. A 3.0 x 15 mm Jamie drug-eluting stent was then positioned across the lesion with its proximal edge at the ostium of the LAD and covering the entire lesion and crossing the ostium of the diagonal. This was deployed at 14 elbert. Patient developed nausea and vomiting. He was given IV Zofran and the dopamine was decreased. He remained mildly hypotensive. A 3.25 x 8 mm noncompliant balloon was advanced over the wire but the patient continued to vomit and was moving and we therefore removed it. ACT was checked. The patient was given additional heparin and provided 50 mcg of Donald-Synephrine IV for his blood pressure. We then discontinued the dopamine. Unfortunately with all the patient's vomiting we were forced to remove the guidewire and guide catheter. We decided to complete diagnostic coronary angiography. A 5 Armenian JR4 diagnostic catheter was advanced and used to engage the right coronary. Right coronary angiography was performed in orthogonal views. The catheter was removed. A 6 Armenian EBU 3.5 guide catheter was chosen as I felt it would remain engaged with the left coronary much better than the 3.0 had. Angiography was performed and the LAD remained patent but the first diagonal was jailed by the stent and occluded. A BMW universal guidewire was reintroduced and with some difficulty we were able to pass a stent strut and positioned the wire distally in the first diagonal. A 2.0 x 8 mm mini trek balloon was reinserted and positioned across the stent strut. The balloon was inflated up to 14 elbert. Patient was also provided additional Donald-Synephrine at 100 mcg for his blood pressure. The mini trek balloon was removed. A 2.0 x 8 NC Donald balloon was then advanced and positioned across the stent struts and the balloon was inflated to 20 elbert. The balloon was then removed and senior j2ee developer angiography was performed. The guidewire was removed and final angiographic evaluation was performed in orthogonal views. The guide catheter was then removed. Radial artery sheath was removed and hemostasis was obtained using the TR band. Decision was made to place the patient on Integrilin drip after double bolus administration as well as heparin drip per standard protocol without a bolus since patient had vomited extensively and likely did not receive full dose of Brilinta or aspirin. Patient remained hemodynamically stable without additional need for vasopressor support and he no longer had chest pain or EKG changes. However he remained nauseated and I therefore plan for him to receive Plavix loading dose followed by Plavix 75 mg daily since he will be on Integrilin drip. Coronary angiography findings: OWF-boffw-mgmwxuh and mildly calcified vessel which bifurcates into LAD and circumflex. Distal up to 30% stenosis. DUZ-hnrul-ybeqscx with moderate proximal calcification. 100% occluded just after the ostium and GARRET 0 flow. This is the culprit for his acute [place]. TEa-irslv-ivygrcl and nondominant vessel. Travels in the AV groove where there is diffuse mild less than 30% stenosis proximally. It provides a large branching OM1 followed immediately by a large OM 2. OM1 has diffuse less than 30% stenosis. OM 2 has proximal 30 to 50% stenosis and then diffuse luminal irregularities. The AV groove vessel distally has diffuse mild disease of less than 40% and then the vessel becomes a medium caliber posterolateral as it terminates. AMQ-amxpw-fmahmpb and dominant. Proximal segment with mild luminal irregularities. Mid segment has less than 30% focal stenosis. Distally there is no significant disease in the vessel then bifurcates into a large branching posterior lateral and a medium to large caliber PDA. These vessels have no disease. PCI of ostial through proximal LAD. -100% stenosis is reduced to 0% stenosis post PCI. -There is GARRET-3 flow post PCI -There is no evidence of dissection or perforation post PCI -After angioplasty of the stent strut into the first diagonal there is also GARRET-3 flow in the first diagonal. (No significant residual jailing by the stent struts) -Anatomically, the midportion of the LAD has mild luminal irregularities. Distally there is mild scattered plaques of less than 30%. The LAD is seen to provide a large multi branching first diagonal which has mild luminal irregularities and a large caliber branching second diagonal which also has mild luminal irregularities. Summary: 1. Acute anterior lateral ST elevation [place] secondary to occlusion of the pro ximal LAD. Large myocardial territory affected. 2. There is diffuse mild coronary disease in multiple vessels as described above. 3. Successful PCI with implantation of a drug-eluting stent in the LAD. Jailed ostium of the large first diagonal was treated by PTCA/stent strut dilatation with good angiographic result. 4. Because of the patient's vomiting not long after receiving his antiplatelet therapy decision was made to provide IV antiplatelet, reload with Plavix 600 mg and then he will be on 75 mg daily thereafter. We will utilize heparin drip until he is able to tolerate oral intake. 5. Echocardiogram has been ordered to evaluate his EF. 6. He will be initiated on guideline directed medical therapy as tolerated by blood pressure and heart rate. Currently on aspirin 81 mg daily and we will start high intensity statin therapy with a atorvastatin 40 mg daily. If his blood pressure and heart rate allow we will then begin metoprolol to tartrate 25 mg p.o. twice daily. Hemodynamics Rest Ao:: 109/68 mmHg Final Ao: 76/48 mmHg LV: Not performed Recommendations Recommendations: Medical Therapy and/or Counseling and PCI without planned CABG Radiation Exposure (mGy) 3585 mGy, fluoroscopy time 22.1 minutes Contrast (mls) 275 mL Anesthesia 1 mg Versed, 50 mcg fentanyl Procedural Complication(s) None Disposition ICU I attest to the content of the Intraoperative Record and any orders documented therein. Any exceptions are noted below. [facility] Card Cath Procedure Codes Cardiac Catheterization Procedure 1: Cardiovascular Cath Procedures: 64431 Coronaries Moderate Sedation Procedure 1: Sedation/Anesthesia: 98846 Mod Sedation by the same physician;Init15 Min Child Age 5 & Up (Initial 15 minutes, start time 184) Procedure 2: Sedation/Anesthesia: 25894 Mod Sedation by the same physician; Ea [id number] Minutes (Additional 71 min, end time 2013) PG Care Time/CCT Total # of Minutes Spent Total Time Spent with Patient: Total time spent is greater than 50% in coordination of care (as documented) at patient's floor/unit and/or counseling patient:
--- NOTE | 2023-10-18 21:09 | Critical Care Consultation ---
Date of Consultation October 18, 2023 Assessment & Plan (1) STEMI (ST elevation myocardial infarction): (2) Elevated PSA: (3) Hypotensive episode: (4) Electrolyte disturbance: (5) Acute vomiting: Plan Reason Critically Ill: 72 YOM presents to the EMD as heart alert and noted with STEMI, taken urgently to laboratory courier underwent PCI and MICHAEL x1 to LAD. Is on Dopamine for BP support. He also is suffering from nausea and vomiting and will continue with heparin and integrelin, with transitioin to oral Plavix load when able to tolerate PO. If tolerates PO will dc heparin infusion ~ 30 min after Plavix load. Continue Integrilin until 0800 am. Neuro - No acute needs CAM ICU: Negative - Awake and appropriate following sedation Cardiac - STEMI, s/p MICHAEL to LAD, - Antiplatelet therapy as per cardiology as above- goal will be asa and Plavix - discontinue heparin if patient eventually able to tolerate PO plavix - Integrilin infusion until 0800 am - BB therapy per cardiology - LIZYZ/ARB pending ECHO in am - Wean Dopamine as hemodynamics allow - Post cath ECG improved- interpreted by me - Trend troponin until peak - Follow on management and risk reduction based on - lipid panel and HGB A1C and ECHO in am. Respiratory - No acute needs GI - Acute nausea with vomiting - likely related to sedation and or ischemia or dopamine infusion - will give dose of H2 and Reglan now - Continue with PRN Zofran - advance diet as tolerated- ice chips to clears RENAL/LYTES - Electrolyte disturbances - replete iCA and Mag - ICU electrolyte protocol in am - Elevated PSA - no acute needs - Hold Flomax until hemodynamics proven stable ENDO - Elevated serum glucose level without diagnosis of DM - HGB A1c in am- medication therapy for GDT as indicated HEME - No acute needs ID - NO concern for infective process at this time LINES/IV ACCESS - PIV, Radial TR band site care per protocol Continue use of these lines DVT PROPHYLAXIS - Heparin infusion, asa, Plavix, Integrilin, SCDS, ambulation in am. DISPO: ICU overnight until hemodynamics proven stable, wean vasopressors as tolerated. I have personally spent 30 minutes of critical care time in the direct management of this patient. This is a life/limb threatening event. This includes time spent evaluating patient, direct bedside care, chart review, placing orders, interpretation of diagnostic studies, discussion with consultants, patient, and family members, as well as other required patient management activities. This time is exclusive of all separately billable procedures, and teaching time and separate from and in addition to any other critical care service time. Thank you for allowing us to participate in the care of this patient. Please refer to my attending physician's documentation for any further recommendations. Supervising Physician Co-Signing Physician Notes Patient seen and examined. EMR reviewed. Discussed with critical care BELINDA and agree with assessment plan as noted. Please refer to my progress note from 10/19/2023 for additional details History of Present Illness Reason for Consultation: STEMI s/p MICHAEL to LAD Requesting Physician: Pilo Attending Physician: Uzair Daigle MD, PhD History of Present Illness 72 YOM with no reported medical history other than elevated PSA level for which he is going to follow up with urology consultation next week. Patient reports that he was on the treadmill earlier today for about an hour, he completed his work out, and after that he started to "just not feel well", which he thought was just indigestion, but was a burning sensation right in the center of his chest. He reports that he then ate some food and was still present, but took a shower to get ready to go to a ball game this evening. After shower he started feeling worse and the pain intensified, it was without radiation to neck, back, jaw, or shoulders and was also not associated with any dyspnea or nausea or vomiting. Patient then asked his to bring him to the hospital, but when he was getting ready to go he decided to call 911. EMS arrived and patient was transported as a heart alert to [facility]. On arrival the patient was noted to have ST elevations, was loaded with asa, brilinta, and initiated on heparin infusion. He was then taken to the laboratory courier emergently. In the laboratory courier the patient did have a bout of emesis. For this reason he was kept on heparin infusion, Integrilin was added as well. In the laboratory courier he underwent PCI with MICHAEL to LAD. He was also initiated on Dopamine infusion secondary to hypotension. He arrives to the ICU awake, on 2LNC, with shivering and feeling cold, as well remains with some dry heaves and nausea. Patient will remain in the ICU to follow hemodynamics as well as rhythm. Case was discussed with Dr. Amaya secondary to pharmacological needs. If patient is able to keep medications and liquids down, will load with 600mg of Plavix and then 30 min after heparin can be discontinued, and will continue with Plavix tomorrow at 75 mg. Integrilin to run until tomorrow morning 0800. IF unable to tolerate PO continue with heparin until able to do so. CODE: FULL Allergies Allergy/AdvReac Type Severity Reaction Status Date / Time acetaminophen Allergy Unknown HIVES Verified 04/21/09 03:41 Home Medications Medication Instructions Recorded Confirmed Type tadalafil 2.5 mg tablet 2.5 mg PO DIRECTED PRN Sexual 10/18/23 10/18/23 History Activity tamsulosin 0.4 mg capsule 0.4 mg PO DAILY 10/18/23 10/18/23 History Patient History Medical History Elevated PSA Family History Other Family history non-contributory Social History Smoking Status: Never smoker Second Hand Exposure: No; Do You Dip or Chew Tobacco: No; Tobacco Cessation Education Requested by Patient: No Hx Alcohol Use: Yes Alcohol type: wine Hx Substance Use: No Preferred Language: Zambian Communication Ability: Effective Field Sales Agent Required: No Beliefs That Will Affect Care: None Current Living Situation: Spouse Other Information That Helps Us Care for You: No Feels Safe at Home: Yes Safety Concerns: Feels Safe At This Time Assistive Devices: Contacts Review of Systems Review of Systems: REVIEW OF SYSTEMS: Constitutional: No fever, sweats or chills Eyes: No diplopia, no worsening or blurred vision ENT: normal hearing, no trouble swallowing Respiratory: No cough, sputum, dyspnea at rest or on exertion Cardiovascular: (+) chest pain, tightness or palpitations Abdomen: (+) nausea, vomiting, NO pain, diarrhea or constipation Musculoskeletal: No joint pain, calf pain, swelling Neurologic: No weakness, numbness/tingling, or balance problems Psychiatric: No anxiety or depression Skin: No rash or itch Physical Exam Physical Exam: PHYSICAL EXAM: General: awake, alert, no apparent distress Head: Normocephalic, atraumatic ENT: PERRL, EOMI, no pharyngeal exudate, mucous membranes moist Neuro: AAO x 3, speech clear and appropriate, strength intact bilaterally 5/5, sensation intact and equal all extremities and dermatomes, no pronator drift Chest: equal rise and fall of the chest, no accessory muscle use, no heaves or thrills, Clear to auscultation, on 2LNC Cardiac: Regular rate and rhythm, telemetry reviewed NSR no ectopy, skin warm dry, cap refill <3 seconds, peripheral pulses +2 no JVD, no murmur, no edema, right radial TR band site intact neurovascular intact, no hematoma GI: NABS x 4 quadrants, soft, nontender to palpation, no rebound, guarding or tenderness : Spontaneously voiding, no pain, no CVA tenderness, Extremities: Normal inspection, no peripheral edema or erythema, calfs nontender to palpation Psych: Normal mood and affect Skin: no rash or erythema Results & Data Results & Data Vital Signs (Past 12 Hours) Vital Signs Temp Pulse Resp BP Pulse Ox O2 Del Method O2 Flow Rate 10/18/23 18:27 72 29 H 10/18/23 18:25 109/64 10/18/23 18:25 109/64 10/18/23 18:25 109/64 10/18/23 18:22 108/68 10/18/23 18:22 98 Room Air 10/18/23 18:22 98 Room Air 0 10/18/23 18:18 108/76 10/18/23 18:18 68 32 H 10/18/23 18:18 71 10/18/23 18:15 36.4 C L 67 28 H 108/68 97 Room Air Laboratory Results Abnormal lab results 10/18/23 10/18/23 10/18/23 Range/Units 18:22 18:26 18:54 RBC 4.50 L (4.70-6.10) M/uL POC Hgb 13.6 L (14.0-18.0) g/dl Hct 41.3 L (42.0-52.0) % POC Hct 40 L (42-52) % MPV 9.3 L (9.4-12.4) fL [place] # (Auto) 0.74 H (0.11-0.59) K/uL Activ Coag Time Kaolin 177 H (94-140) SECONDS Carbon Dioxide 19 L (21-32) mmol/L POC Total CO2 17 L (24-31) mmol/L Anion Gap 13 H (3-11) POC BUN 19 H (7-18) mg/dl POC Creatinine 1.5 H (0.6-1.3) mg/dl Glucose 158 H (70-99(Fasting)) mg/dl POC Glucose (other) 156 H (70-99) mg/dl POC Ioniz Calcium Dom 1.04 L (1.12-1.32) mmol/l 10/18/23 10/18/23 10/18/23 Range/Units 19:17 19:33 19:57 RBC (4.70-6.10) M/uL POC Hgb (14.0-18.0) g/dl Hct (42.0-52.0) % POC Hct (42-52) % MPV (9.4-12.4) fL [place] # (Auto) (0.11-0.59) K/uL Activ Coag Time Kaolin 226 H 214 H 208 H (94-140) SECONDS Carbon Dioxide (21-32) mmol/L POC Total CO2 (24-31) mmol/L Anion Gap (3-11) POC BUN (7-18) mg/dl POC Creatinine (0.6-1.3) mg/dl Glucose (70-99(Fasting)) mg/dl POC Glucose (other) (70-99) mg/dl POC Ioniz Calcium Dom (1.12-1.32) mmol/l Diagnostic Findings Chest X-Ray 10/18/23 18:09 XR chest 1V portable CLINICAL HISTORY: Chest pain, nonspecific TECHNIQUE: Single frontal radiograph of the chest was obtained. Comparison: None available at the time of this dictation. FINDINGS: No lines and tubes are seen. Calcified aortic knob is seen. The lungs are clear. No evidence of pleural effusion or pneumothorax. IMPRESSION: No acute chest disease. ACT 112: Negative or not required by law. Electronically signed by: Reji Correia M.D. 10/18/2023 6:36 PM ECG Additional Comments: 18-OCT-2023 20:35:42 Accelerated Junctional rhythm Anteroseptal infarct (cited on or before 18-OCT-2023) Abnormal ECG When compared with ECG of 18-OCT-2023 18:21, (unconfirmed) Junctional rhythm has replaced Sinus rhythm QRS duration has decreased Serial changes of evolving Anteroseptal infarct Present Coding Level of Care Code 73831 CRITICAL CARE -M Diagnoses STEMI (ST elevation myocardial infarction) I21.3 Elevated PSA R97.20 Hypotensive episode I95.9 Electrolyte disturbance E87.8 Acute vomiting R11.10
[2023-10-18] MEDS: IODIXANOL (VISIPAQUE) 320 MG/ML 100ML IV ONE (21:45)
[2023-10-18] MEDS: HEPARIN 25000 UNIT/500 ML D5W IV ONE (21:46)
[2023-10-18] MEDS: AMIODARONE 150MG / 100ML D5W (CATH LAB USE ONLY) IV ONE (21:46)
[2023-10-18] MEDS: SODIUM CHLORIDE 0.9% 1,000 ML IV SCH (21:48)
[2023-10-18] MEDS: EPTIFIBATIDE 75 MG/100 ML VIAL IV SCH (21:48)
[2023-10-18] MEDS: HEPARIN SODIUM/DEXTROSE 25,000 UNITS/500 ML BAG IV SCH (21:49)
[2023-10-18] MEDS: MAGNESIUM SULFATE / D5W 1 GM/100 ML BAG IV SCH (21:53)
[2023-10-18] MEDS: CALCIUM GLUCONATE 1,000 MG/60 ML BAG IV SCH (21:57)
--- NOTE | 2023-10-18 21:57 | History & Physical Report ---
Date of Service October 18, 2023 Assessment & Plan (1) STEMI (ST elevation myocardial infarction): Plan: 72-year-old male with past medical history significant for BPH and elevated PSAs supposed to see urology coming Friday comes because of chest pain and found to have ST elevated NV s/p emergent cardiac cath and drug-eluting stent to LAD currently chest pain-free but had a lot of nausea. Patient states from 3:10 PM to 4:10 PM he was on a treadmill. After that he had a snack and took shower. Around 5 PM started noticed chest pain middle of the chest. No radiation. At that time no nausea. No dizziness. Initially thought heartburn but the pain was very severe he told his he wanted to go to hospital as he walked to the car told his to call ambulance. While waiting for ambulance he was having some sweating. In ER patient was called heart alert and s/p cardiac cath. Currently chest pain resolved. Having a lot of nausea , states from the medications he got in the hospital Denies any headache. Vision is okay. No cough. No recent fevers. No shortness of breath. No abdominal pain. Normal bowel and bladder movements. Patient states he exercises 4 times a week. Did not get any chest pain before. No smoking history. No family history of heart disease. Acute ST elevated NV S/p cardiac cath and drug-eluting stent to LAD and PTCA/stent strut dilatation of the jailed ostium of the large first diagonal. As patient vomited after having this p.o. antiplatelets and still have a lot of nausea currently patient is on IV heparin and Integrilin till 8 PM and to reload with Plavix when able to take p.o. and stop iv heparin then and aspirin 81 mg daily Starting on beta-blockers and statin as per cardiology Weaning of dopamine as hemodynamics allows Follow serial cardiac enzymes and echo and lipid panel and HbA1c Close monitoring ICU Currently chest pain-free BPH On Flomax Follow-up with urology DVT prophylaxis SCDs Currently on IV heparin Disposition Close monitoring ICU Full code Admission and Anticipated Discharge Date Admission Date: October 18, 2023 History of Present Illness Chief Complaint: ST elevated NV Primary Care Provider: Daria Mcdaniel MD 72-year-old male with past medical history significant for BPH and elevated PSAs supposed to see urology coming Friday comes because of chest pain and found to have ST elevated NV s/p emergent cardiac cath and drug-eluting stent to LAD currently chest pain-free but had a lot of nausea. Patient states from 3:10 PM to 4:10 PM he was on a treadmill. After that he had a snack and took shower. Around 5 PM started noticed chest pain middle of the chest. No radiation. At that time no nausea. No dizziness. Initially thought heartburn but the pain was very severe he told his he wanted to go to hospital as he walked to the car told his to call ambulance. While waiting for ambulance he was having some sweating. In ER patient was called heart alert and s/p cardiac cath. Currently chest pain resolved. Having a lot of nausea , states from the medications he got in the hospital Denies any headache. Vision is okay. No cough. No recent fevers. No shortness of breath. No abdominal pain. Normal bowel and bladder movements. Patient states he exercises 4 times a week. Did not get any chest pain before. No smoking history. No family history of heart disease. Past med history. As mentioned above Past surgical history. Left inguinal hernia repair. Excision of tongue lesion. Colonoscopy. Tonsillectomy. Social history. No smoking. Drinks glass of wine daily.. No drug use. Family history. Patient denies any significant family history. Allergies Allergy/AdvReac Type Severity Reaction Status Date / Time acetaminophen Allergy Unknown HIVES Verified 04/21/09 03:41 Home Medications Medication Instructions Recorded Confirmed Type tadalafil 2.5 mg tablet 2.5 mg PO DIRECTED PRN Sexual 10/18/23 10/18/23 History Activity tamsulosin 0.4 mg capsule 0.4 mg PO DAILY 10/18/23 10/18/23 History Past Med/Surg History Problem List (Updated 10/18/23 @ 23:16 by Amol Zamora M.D.) Acute vomiting Electrolyte disturbance Hypotensive episode STEMI (ST elevation myocardial infarction) (Acute) Medical History Elevated PSA Family History Other Family history non-contributory Social History Smoking Status: Never smoker Second Hand Exposure: No; Do You Dip or Chew Tobacco: No; Tobacco Cessation Education Requested by Patient: No Hx Alcohol Use: Yes Alcohol type: wine Hx Substance Use: No Preferred Language: Spanish Communication Ability: Effective Administrative Assistant Receptionist Required: No Beliefs That Will Affect Care: None Current Living Situation: Spouse Other Information That Helps Us Care for You: No Feels Safe at Home: Yes Safety Concerns: Feels Safe At This Time Assistive Devices: Contacts Review of Systems Review of Systems: All systems reviewed & are unremarkable except as noted in HPI & below Physical Exam Physical Exam: General- Not in distress. Head- atraumatic Eyes- EOMI ENT- oropharynx clear Neck- supple, no JVD. Lungs- clear to auscultation no wheezing or crackles Heart- regular rate and rhythm; no murmur, no gallop. Abdomen- normal bowel sounds, soft, nontender, no distension Extremities- no pretibial edema, no erythema seen. Right wrist cath site no erythema or drainage seen Neuro- alert, oriented EOMI; no facial palsy; no dysarthria; moves extremities Results & Data Results & Data Vital Signs (Past 12 Hours) Vital Signs Temp Pulse Resp BP Pulse Ox O2 Del Method O2 Flow Rate 10/18/23 18:27 72 29 H 10/18/23 18:25 109/64 10/18/23 18:25 109/64 10/18/23 18:25 109/64 10/18/23 18:22 108/68 10/18/23 18:22 98 Room Air 10/18/23 18:22 98 Room Air 0 10/18/23 18:18 108/76 10/18/23 18:18 68 32 H 10/18/23 18:18 71 10/18/23 18:15 36.4 C L 67 28 H 108/68 97 Room Air Diagnostic Findings Laboratory Results WBC 8.79 K/ul (4.8-10.8) 10/18/23 18:22 RBC 4.50 M/uL (4.70-6.10) L 10/18/23 18:22 Hgb 14.1 g/dl (14.0-18.0) 10/18/23 18:22 POC Hgb 13.6 g/dl (14.0-18.0) L 10/18/23 18:26 Hct 41.3 % (42.0-52.0) L 10/18/23 18:22 POC Hct 40 % (42-52) L 10/18/23 18: MCV 91.8 fL (80.0-100.0) 10/18/23 18: MCH 31.3 pg (25.0-34.0) 10/18/23 18: MCHC 34.1 g/dL (32.0-36.0) 10/18/23 18: RDW Std Deviation 44.1 fL (36.4-46.3) 10/18/23 18: RDW Coeff of Gregoria 13.0 % (11.5-14.5) 10/18/23 18: Plt Count 262 K/uL (130-400) 10/18/23 18: MPV 9.3 fL (9.4-12.4) L 10/18/23 18: Immature Gran % (Auto) 0.2 % 10/18/23 18: Neut % (Auto) 52.5 % 10/18/23 18:22 Lymph % (Auto) 37.5 % 10/18/23 18:22 Vermillion % (Auto) 8.4 % 10/18/23 18:22 Eos % (Auto) 0.8 % 10/18/23 18: Baso % (Auto) 0.6 % 10/18/23 18:22 Neut # (Auto) 4.61 K/uL (1.40-6.50) 10/18/23 18:22 Lymph # (Auto) 3.30 K/uL (1.20-3.40) 10/18/23 18:22 Vermillion # (Auto) 0.74 K/uL (0.11-0.59) H 10/18/23 18:22 Eos # (Auto) 0.07 K/uL (0.00-0.50) 10/18/23 18:22 Baso # (Auto) 0.05 K/uL (0.00-0.20) 10/18/23 18:22 Immature Gran # (Auto) 0.02 K/uL (0.01-0.20) 10/18/23 18: PT 11.0 Seconds (9.0-12.0) 10/18/23 18:22 INR 1.0 (0.9-1.1) 10/18/23 18:22 APTT 23 Seconds (21-31) 10/18/23 18:22 PTT Ratio 0.9 10/18/23 18:22 Activ Coag Time Kaolin 208 SECONDS (94-140) H 10/18/23 19:57 POC Sodium 141 mmol/L (135-144) 10/18/23 18:26 Sodium 139 mmol/L (136-145) 10/18/23 18:22 POC Potassium 3.9 mmol/L (3.3-5.0) 10/18/23 18:26 Potassium 4.0 mmol/L (3.5-5.1) 10/18/23 18:22 POC Chloride 110 mmol/L (101-112) 10/18/23 18:26 Chloride 107 mmol/L (98-107) 10/18/23 18:22 Carbon Dioxide 19 mmol/L (21-32) L 10/18/23 18:22 POC Total CO2 17 mmol/L (24-31) L 10/18/23 18:26 Anion Gap 13 (3-11) H 10/18/23 18:22 POC Anion Gap 19.0 mmol/L (16-25) 10/18/23 18:26 POC BUN 19 mg/dl (7-18) H 10/18/23 18:26 BUN 20 mg/dl (6-23) 10/18/23 18:22 Creatinine 1.39 mg/dl (0.6-1.4) 10/18/23 18:22 POC Creatinine 1.5 mg/dl (0.6-1.3) H 10/18/23 18:26 Est Cr Clr Drug Dosing 55.6 ml/min 10/18/23 18:22 Est GFR ( Amer) 58.3 ml/min 10/18/23 18:22 Est GFR (Non-Af Amer) 50.3 ml/min 10/18/23 18:22 BUN/Creatinine Ratio 14.4 (10-20) 10/18/23 18:22 Glucose 158 mg/dl (70-99(Fasting)) H 10/18/23 18:22 POC Glucose (other) 156 mg/dl (70-99) H 10/18/23 18:26 Calcium 9.1 mg/dl (8.6-10.3) 10/18/23 18:22 POC Ioniz Calcium Dom 1.04 mmol/l (1.12-1.32) L 10/18/23 18:26 Magnesium 1.8 mg/dl (1.7-2.4) 10/18/23 18:22 Total Bilirubin 0.5 mg/dl (0.2-1.0) 10/18/23 18:22 AST 24 U/L (13-39) 10/18/23 18:22 ALT 18 U/L (7-52) 10/18/23 18:22 Alkaline Phosphatase 54 U/L (34-104) 10/18/23 18:22 Total Creatine Kinase 114 U/L (30-223) 10/18/23 18:22 Troponin I High Sens 3.6 pg/ml (0-20) 10/18/23 18:22 B-Natriuretic Peptide 33 pg/ml (0-100) 10/18/23 18:22 Total Protein 6.7 gm/dl (6.0-8.3) 10/18/23 18:22 Albumin 3.8 gm/dl (3.4-5.0) 10/18/23 18:22 Globulin 2.9 gm/dl (2.5-4.0) 10/18/23 18:22 Albumin/Globulin Ratio 1.3 (0.9-2) 10/18/23 18:22 Lipase 33 U/L (11-82) 10/18/23 18:22 TSH 1.466 uIu/ml (0.300-4.500) 10/18/23 18:22 SARS-CoV-2, RNA, NAAT NEGATIVE (NEGATIVE) 10/18/23 18:29 Impressions Chest X-Ray 10/18/23 18:09 XR chest 1V portable CLINICAL HISTORY: Chest pain, nonspecific TECHNIQUE: Single frontal radiograph of the chest was obtained. Comparison: None available at the time of this dictation. FINDINGS: No lines and tubes are seen. Calcified aortic knob is seen. The lungs are clear. No evidence of pleural effusion or pneumothorax. IMPRESSION: No acute chest disease. ACT 112: Negative or not required by law. Electronically signed by: Reji Correia M.D. 10/18/2023 6:36 PM ECG Additional Comments: ECG. Sinus rhythm with premature supraventricular complexes ST elevations in anteroseptal leads Code Status & VTE Plan VTE Prophylaxis Plan VTE Prophylaxis will be ordered: Yes
[2023-10-18] MEDS: METOCLOPRAMIDE HCL INJ 5 MG/ML 2 ML VIAL IV ONE (22:02)
[2023-10-18] MEDS: FAMOTIDINE 20MG IV PUSH 20 MG/5 ML SYR IV STA (22:03)
--- NOTE | 2023-10-18 22:09 | Cardiology Consultation ---
Date of Consultation October 18, 2023 Assessment & Plan (1) STEMI (ST elevation myocardial infarction): Successful PCI with implantation of a drug-eluting stent to the proximal LAD. Jailing of the diagonal was also treated successfully with PTCA. Patient now with no symptoms. Hemodynamically blood pressure is acceptable. No ongoing arrhythmia. Plan is for him to continue Integrilin drip for 12 hours. Once he is able to tolerate a loading dose of Plavix (600 mg p.o. x 1) then his heparin drip can be discontinued. Tomorrow he will begin aspirin 81 mg daily and Plavix 75 mg p.o. daily. We will obtain an echocardiogram as I suspect at least initially he will have significantly reduced EF from the large myocardial territory affected by this event. We are going to follow serial troponins to help us gauge the severity of myocardial injury as well. He is guideline directed medical therapy will include the low-dose aspirin, we are starting a atorvastatin 40 mg daily, and once his blood pressure and heart rate allow he will begin metoprolol to tartrate 25 mg p.o. twice daily. Anticipate he will be in the ICU for 24 hours with plans to transfer to stepdown unit to complete an additional 24 hours per standard of care. Additional recommendations pending results of his echo. Will also rule out occult diabetes and check his lipid profile so that we may find the appropriate target LDL reduction. History of Present Illness Reason for Consultation: ST elevation IL Attending Physician: Reba Boyd MD History of Present Illness 72-year-old gentleman with a history of BPH presented via ambulance for sudden onset chest pain. EKG demonstrating evidence of acute anterolateral ST elevation IL. A "heart alert" was called. On my arrival to the emergency department the patient was in significant discomfort. He had just received Brilinta 180 mg p.o. and heparin IV 5000 units. Received aspirin en route. EKG demonstrated anterolateral ST elevations consistent with proximal LAD occlusion. Patient's chest pain was 10 out of 10. He reported that he had been exercising on the treadmill going for 2 and half miles as is his usual custom. He developed sudden onset chest pressure and pain, some mild nausea and dyspnea. The discomfort continue to worsen and therefore EMS was called. He felt that the symptoms started at 5:15 PM and I saw him at 6:30 PM. He states he never had any symptoms like this previously. His is present also and she is helpful in giving history because he is having a hard time concentrating secondary to his pain. She tells me he does not see a doctor that recently but did just see a primary care provider in [facility]. She tells me that his cholesterol was the same as it was 20 years ago. She thinks it was "a little bit high" but she cannot recall the numbers. He is supposed to see urology on Friday for his prostate. His usual blood pressure is in the 120 systolic and his resting heart rate is typically 70. He does exercise regularly as I mentioned. He has a sister who had congenital valve disease but no coronary artery disease. His father had a myocardial infarction but he is not sure how old he was and believes he only had 1 episode. Patient cannot recall anyone else who is a close relative who has had heart problems. He does not smoke or use illicit drugs. Because of his EKG changes and somewhat unstable appearing clinical picture he was taken emergently to the cardiac catheterization suite. There he had coronary angiography via the right radial artery approach. This demonstrated an acutely occluded proximal LAD just beyond the ostium. We were able to stent the LAD but this jailed a large branching diagonal. Therefore we needed to post dilate the stent struts across the ostium of the diagonal and this was successful in restoring normal flow to the diagonal as well. Patient was hypotensive throughout most of the procedure he did require vasopressors support for the procedure. He also has significant nausea and vomiting which protracted our procedure and he vomited his oral medications as well. He was therefore placed on IV blood thinners to replace the aspirin and Brilinta. Fortunately, the large area of myocardium that was receiving no flow got good reperfusion with the stenting. His EKG initially has significant reperfusion arrhythmia and some bradycardia but this also resolved by the end of the procedure. He had resolution of his chest pain and his blood pressure improved to an acceptable level. He had persistent but less severe nausea and he was then transferred to the ICU for further workup and management. Allergies Allergy/AdvReac Type Severity Reaction Status Date / Time acetaminophen Allergy Unknown HIVES Verified 04/21/09 03:41 Home Medications Medication Instructions Recorded Confirmed Type tadalafil 2.5 mg tablet 2.5 mg PO DIRECTED PRN Sexual 10/18/23 10/18/23 History Activity tamsulosin 0.4 mg capsule 0.4 mg PO DAILY 10/18/23 10/18/23 History Patient History Medical History Elevated PSA Family History Other Family history non-contributory Social History Smoking Status: Never smoker Preferred Language: Occitan Feels Safe at Home: Yes Review of Systems Review of Systems: Negative except as per HPI Physical Exam Constitutional: WD/WN, vitals as above Eyes: Extraocular muscles intact. Sclera anicteric. ENMT: Oral mucosa is pink moist and intact Neck: No JVD Respiratory: Clear to auscultation bilaterally. No wheezing, rhonchi, or rales. Good air movement. Cardiovascular: Regular rate and rhythm. S4 gallop. I do not appreciate any rubs or murmurs. No edema. Musculoskeletal: no cyanosis or clubbing, extremities motor strength 5/5 Neurologic: Cognition is intact. Speech is fluent. No focal deficits. Psychiatric: A+Ox3, euthymic affect Results & Data Vital Signs (Past 12 Hours) Vital Signs Temp Pulse Resp BP Pulse Ox O2 Del Method O2 Flow Rate 10/18/23 18:27 72 29 H 10/18/23 18:25 109/64 10/18/23 18:25 109/64 10/18/23 18:25 109/64 10/18/23 18:22 108/68 10/18/23 18:22 98 Room Air 10/18/23 18:22 98 Room Air 0 10/18/23 18:18 108/76 10/18/23 18:18 68 32 H 10/18/23 18:18 71 10/18/23 18:15 36.4 C L 67 28 H 108/68 97 Room Air PG Care Time/CCT Total # of Minutes Spent Total Time Spent with Patient: Total time spent is greater than 50% in coordination of care (as documented) at patient's floor/unit and/or counseling patient: Critical Care Time: Yes A total of 65 minutes critical care time was spent in the initial evaluation and examination the patient, discussion with the patient, his , and the ER care team, review of available medical records, formulation and implementation of a plan of care, and all associated documentation. This time is exclusive of the time spent for the procedure. Coding Level of Care Code 63300 CRITICAL CARE 1ST 30-74M Diagnoses STEMI (ST elevation myocardial infarction) I21.3 Additional Codes Critical Care Time - Critical Care Time: Yes ([id number]) Time Spent (min) 65
[2023-10-18 22:23] LABS: Basophils # (auto) 0.02 K/uL (0.00-0.20); Basophils % (auto) 0.2 %; Eosinophils # (auto) 0.01 K/uL (0.00-0.50); Eosinophils % (auto) 0.1 %; Immature Granulocytes # (auto) 0.04 K/uL (0.01-0.20); Immature Granulocytes % (auto) 0.3 %; Lymphocytes # (auto) 1.12 K/uL (1.20-3.40); Lymphocytes % (auto) 8.6 %; Mean Corpuscular Hemoglobin 31.3 pg (25.0-34.0); Mean Corpuscular Hgb Conc 33.3 g/dL (32.0-36.0); Monocytes % (auto) 5.4 %; Neutrophils # (auto) 11.17 K/uL (1.40-6.50); Neutrophils % (auto) 85.4 %; Platelet Count 219 K/uL (130-400); RDW Coefficient of Variation 13.2 % (11.5-14.5); RDW Standard Deviation 45.2 fL (36.4-46.3); Red Blood Count 4.47 M/uL (4.70-6.10); White Blood Count 13.06 K/ul (4.8-10.8)
[2023-10-18] MEDS: METOPROLOL TARTRATE 25 MG TAB PO SCH (22:54)
[2023-10-18] MEDS: CLOPIDOGREL BISULFATE 300 MG TAB PO STA (22:55)
[2023-10-18] MEDS: ATORVASTATIN 40 MG TAB PO STA (22:55)
--- NOTE | 2023-10-18 23:16 | Emergency Department Note ---
Impression & Plan STEMI (ST elevation myocardial infarction) ED Provider Note Provider: Amol Zamora MD DATE OF SERVICE: 10/18/2023 CHIEF COMPLAINT: Chest pressure HISTORY OF PRESENT ILLNESS: Patient is a 72-year-old gentleman dealing with some prostate issues presenting here via ambulance. Patient was just finishing an hour-long treadmill walk when he developed central chest pressure severe in nature with some clamminess. No syncope or trauma. No cardiac history. Very active. EKG prehospital showed evidence of STEMI. Heart alert was called prior to arrival and consultation with EMS. Patient received 324 mg aspirin prior to arrival as well as some IV fluid and nitroglycerin. Patient arrival with severe chest pressure describes it as a pressure like someone sitting on his chest. Nauseous. In some distress and uncomfortable upon presentation. No abdominal pain. No radiation of the pain elsewhere. PAST MEDICAL HISTORY: As noted above MEDICATIONS: Reviewed home medications SOCIAL HISTORY: Non-smoker, PHYSICAL EXAM: GENERAL: alert and oriented on stretcher eyes closed appears quite uncomfortable occasionally retching Head: normocephalic and atraumatic EYES: No injection, discharge or icterus. EOMI. NECK: Trachea midline. ENT: Mucous membranes pink and moist. LUNGS: Airway patent. No retractions. Breath sounds clear with good air entry bilaterally. HEART: Regular rate and rhythm. No chest wall tenderness ABDOMEN: Soft and non-tender, without guarding or rebound. SKIN: Acyanotic, warm, dry, without rashes EXTREMITIES: Without swelling, tenderness or deformity NEUROLOGICAL: No focal deficits moving all extremities. No facial droop or slurred speech. EK bpm sinus rhythm with artifact but evidence of inferior ST depression and anterior STEMI. QTc 452. CONTINUOUS CARDIAC MONITORING: was ordered and showed a heart rate of 70s-90s bpm in normal sinus rhythm Patient's laboratory studies and imaging reviewed. Differential includes Cardiac ischemia, aortic dissection, pulmonary embolism, pneumothorax, pneumonia, pericarditis, myocarditis, esophageal rupture, GERD, cholecystitis, pancreatitis, musculoskeletal, as well as other pathologies. IMPRESSION/MEDICAL DECISION MAKING: Benign abdomen. Evidence of STEMI. Heart alert activated. Received aspirin. Given Brilinta and heparin here in the ER. Blood work obtained. Given some fentanyl for pain control. Somewhat borderline pressures and held off on additional nitroglycerin. Patient at bedside. Chest x-ray obtained without evidence of effusion or widened mediastinum. Doubt dissection. Interventional cardiology evaluated at bedside and consented the patient for cardiac catheterization. Patient was taken there for further care. Basic blood obtained and returned later without severe anemia or initial elevated troponin. DIAGNOSIS: STEMI DISPOSITION: The cardiac catheterization lab for further care Critical Care I have personally spent 31 minutes of critical care time in the direct management of this patient. This includes bedside care, interpretation of diagnostic studies, and testing, discussion with consultants, patient, and family members, and other required patient management activities. These 31 minutes is in excess of all separately billable procedures. Past Med/Surg History Problem List (Updated 10/18/23 @ 23:16 by Amol Zamora M.D.) Acute vomiting Electrolyte disturbance Hypotensive episode STEMI (ST elevation myocardial infarction) (Acute) Medical History Elevated PSA Family History Other Family history non-contributory Social History Smoking Status: Never smoker Second Hand Exposure: No; Do You Dip or Chew Tobacco: No; Tobacco Cessation Education Requested by Patient: No Hx Alcohol Use: Yes Alcohol type: wine Hx Substance Use: No Preferred Language: Burkinan Communication Ability: Effective Recreational Therapist Required: No Beliefs That Will Affect Care: None Current Living Situation: Spouse Other Information That Helps Us Care for You: No Feels Safe at Home: Yes Safety Concerns: Feels Safe At This Time Assistive Devices: Contacts Allergies Allergies Allergy/AdvReac Type Severity Reaction Status Date / Time acetaminophen Allergy Unknown HIVES Verified 04/21/09 03:41 Home Meds Home Medications Medication Instructions Recorded Confirmed tadalafil 2.5 mg tablet 2.5 mg PO DIRECTED PRN Sexual 10/18/23 10/18/23 Activity tamsulosin 0.4 mg capsule 0.4 mg PO DAILY 10/18/23 10/18/23 Results & Data (ED) Vital Signs Vital Signs - 24 hr 10/18/23 18:15 10/18/23 18:15 10/18/23 18:18 Temperature 36.4 C L Temperature Source Oral Pulse Rate 67 71 Respiratory Rate 28 H Respiratory Effort / Characteristics Spontaneous Non-Labored Spontaneous Respiratory Depth Shallow Normal Blood Pressure 108/68 Blood Pressure Mean 81 Pulse Oximetry 97 Oxygen Delivery Method Room Air Oxygen Flow Rate Sepsis Recent Fever Within 48 Hours No Sepsis New/Unexplained Change in Mental Status N/A Sepsis Action Taken by Nursing No Action Required 10/18/23 18:18 10/18/23 18:18 10/18/23 18:22 Temperature Temperature Source Pulse Rate 68 Respiratory Rate 32 H Respiratory Effort / Characteristics Respiratory Depth Blood Pressure 108/76 Blood Pressure Mean 83 Pulse Oximetry 98 Oxygen Delivery Method Room Air Oxygen Flow Rate 0 Sepsis Recent Fever Within 48 Hours Sepsis New/Unexplained Change in Mental Status Sepsis Action Taken by Nursing 10/18/23 18:22 10/18/23 18:22 10/18/23 18:25 Temperature Temperature Source Pulse Rate Respiratory Rate Respiratory Effort / Characteristics Respiratory Depth Blood Pressure 108/68 109/64 Blood Pressure Mean 83 78 Pulse Oximetry 98 Oxygen Delivery Method Room Air Oxygen Flow Rate Sepsis Recent Fever Within 48 Hours Sepsis New/Unexplained Change in Mental Status Sepsis Action Taken by Nursing 10/18/23 18:25 10/18/23 18:25 10/18/23 18:27 Temperature Temperature Source Pulse Rate 72 Respiratory Rate 29 H Respiratory Effort / Characteristics Respiratory Depth Blood Pressure 109/64 109/64 Blood Pressure Mean 78 78 Pulse Oximetry Oxygen Delivery Method Oxygen Flow Rate Sepsis Recent Fever Within 48 Hours Sepsis New/Unexplained Change in Mental Status Sepsis Action Taken by Nursing Laboratory Data 10/18/23 22:03 10/18/23 18:22 Lab Results 10/18/23 10/18/23 10/18/23 Range/Units 18:22 18:26 18:29 WBC 8.79 (4.8-10.8) K/ul RBC 4.50 L (4.70-6.10) M/uL Hgb 14.1 (14.0-18.0) g/dl POC Hgb 13.6 L (14.0-18.0) g/dl Hct 41.3 L (42.0-52.0) % POC Hct 40 L (42-52) % MCV 91.8 (80.0-100.0) fL MCH 31.3 (25.0-34.0) pg MCHC 34.1 (32.0-36.0) g/dL RDW Std Deviation 44.1 (36.4-46.3) fL RDW Coeff of Gregoria 13.0 (11.5-14.5) % Plt Count 262 (130-400) K/uL MPV 9.3 L (9.4-12.4) fL Immature Gran % (Auto) 0.2 % Neut % (Auto) 52.5 % Lymph % (Auto) 37.5 % Guthrie % (Auto) 8.4 % Eos % (Auto) 0.8 % Baso % (Auto) 0.6 % Neut # (Auto) 4.61 (1.40-6.50) K/uL Lymph # (Auto) 3.30 (1.20-3.40) K/uL Guthrie # (Auto) 0.74 H (0.11-0.59) K/uL Eos # (Auto) 0.07 (0.00-0.50) K/uL Baso # (Auto) 0.05 (0.00-0.20) K/uL Immature Gran # (Auto) 0.02 (0.01-0.20) K/uL PT 11.0 (9.0-12.0) Seconds INR 1.0 (0.9-1.1) APTT 23 (21-31) Seconds PTT Ratio 0.9 Activ Coag Time Kaolin (94-140) SECONDS POC Sodium 141 (135-144) mmol/L Sodium 139 (136-145) mmol/L POC Potassium 3.9 (3.3-5.0) mmol/L Potassium 4.0 (3.5-5.1) mmol/L POC Chloride 110 (101-112) mmol/L Chloride 107 (98-107) mmol/L Carbon Dioxide 19 L (21-32) mmol/L POC Total CO2 17 L (24-31) mmol/L Anion Gap 13 H (3-11) POC Anion Gap 19.0 (16-25) mmol/L POC BUN 19 H (7-18) mg/dl BUN 20 (6-23) mg/dl Creatinine 1.39 (0.6-1.4) mg/dl POC Creatinine 1.5 H (0.6-1.3) mg/dl Est Cr Clr Drug Dosing 55.6 ml/min Est GFR ( Amer) 58.3 ml/min Est GFR (Non-Af Amer) 50.3 ml/min BUN/Creatinine Ratio 14.4 (10-20) Glucose 158 H (70-99(Fasting)) mg/dl POC Glucose (other) 156 H (70-99) mg/dl Calcium 9.1 (8.6-10.3) mg/dl POC Ioniz Calcium Dom 1.04 L (1.12-1.32) mmol/l Magnesium 1.8 (1.7-2.4) mg/dl Total Bilirubin 0.5 (0.2-1.0) mg/dl AST 24 (13-39) U/L ALT 18 (7-52) U/L Alkaline Phosphatase 54 (34-104) U/L Total Creatine Kinase 114 (30-223) U/L Troponin I High Sens 3.6 (0-20) pg/ml B-Natriuretic Peptide 33 (0-100) pg/ml Total Protein 6.7 (6.0-8.3) gm/dl Albumin 3.8 (3.4-5.0) gm/dl Globulin 2.9 (2.5-4.0) gm/dl Albumin/Globulin Ratio 1.3 (0.9-2) Lipase 33 (11-82) U/L TSH 1.466 (0.300-4.500) uIu/ml SARS-CoV-2, RNA, NAAT NEGATIVE (NEGATIVE) 10/18/23 10/18/23 10/18/23 Range/Units 18:54 19:17 19:33 WBC (4.8-10.8) K/ul RBC (4.70-6.10) M/uL Hgb (14.0-18.0) g/dl POC Hgb (14.0-18.0) g/dl Hct (42.0-52.0) % POC Hct (42-52) % MCV (80.0-100.0) fL MCH (25.0-34.0) pg MCHC (32.0-36.0) g/dL RDW Std Deviation (36.4-46.3) fL RDW Coeff of Gregoria (11.5-14.5) % Plt Count (130-400) K/uL MPV (9.4-12.4) fL Immature Gran % (Auto) % Neut % (Auto) % Lymph % (Auto) % Guthrie % (Auto) % Eos % (Auto) % Baso % (Auto) % Neut # (Auto) (1.40-6.50) K/uL Lymph # (Auto) (1.20-3.40) K/uL Guthrie # (Auto) (0.11-0.59) K/uL Eos # (Auto) (0.00-0.50) K/uL Baso # (Auto) (0.00-0.20) K/uL Immature Gran # (Auto) (0.01-0.20) K/uL PT (9.0-12.0) Seconds INR (0.9-1.1) APTT (21-31) Seconds PTT Ratio Activ Coag Time Kaolin 177 H 226 H 214 H (94-140) SECONDS POC Sodium (135-144) mmol/L Sodium (136-145) mmol/L POC Potassium (3.3-5.0) mmol/L Potassium (3.5-5.1) mmol/L POC Chloride (101-112) mmol/L Chloride (98-107) mmol/L Carbon Dioxide (21-32) mmol/L POC Total CO2 (24-31) mmol/L Anion Gap (3-11) POC Anion Gap (16-25) mmol/L POC BUN (7-18) mg/dl BUN (6-23) mg/dl Creatinine (0.6-1.4) mg/dl POC Creatinine (0.6-1.3) mg/dl Est Cr Clr Drug Dosing ml/min Est GFR ( Amer) ml/min Est GFR (Non-Af Amer) ml/min BUN/Creatinine Ratio (10-20) Glucose (70-99(Fasting)) mg/dl POC Glucose (other) (70-99) mg/dl Calcium (8.6-10.3) mg/dl POC Ioniz Calcium Dom (1.12-1.32) mmol/l Magnesium (1.7-2.4) mg/dl Total Bilirubin (0.2-1.0) mg/dl AST (13-39) U/L ALT (7-52) U/L Alkaline Phosphatase (34-104) U/L Total Creatine Kinase (30-223) U/L Troponin I High Sens (0-20) pg/ml B-Natriuretic Peptide (0-100) pg/ml Total Protein (6.0-8.3) gm/dl Albumin (3.4-5.0) gm/dl Globulin (2.5-4.0) gm/dl Albumin/Globulin Ratio (0.9-2) Lipase (11-82) U/L TSH (0.300-4.500) uIu/ml SARS-CoV-2, RNA, NAAT (NEGATIVE) 10/18/23 Range/Units 19:57 WBC (4.8-10.8) K/ul RBC (4.70-6.10) M/uL Hgb (14.0-18.0) g/dl POC Hgb (14.0-18.0) g/dl Hct (42.0-52.0) % POC Hct (42-52) % MCV (80.0-100.0) fL MCH (25.0-34.0) pg MCHC (32.0-36.0) g/dL RDW Std Deviation (36.4-46.3) fL RDW Coeff of Gregoria (11.5-14.5) % Plt Count (130-400) K/uL MPV (9.4-12.4) fL Immature Gran % (Auto) % Neut % (Auto) % Lymph % (Auto) % Guthrie % (Auto) % Eos % (Auto) % Baso % (Auto) % Neut # (Auto) (1.40-6.50) K/uL Lymph # (Auto) (1.20-3.40) K/uL Guthrie # (Auto) (0.11-0.59) K/uL Eos # (Auto) (0.00-0.50) K/uL Baso # (Auto) (0.00-0.20) K/uL Immature Gran # (Auto) (0.01-0.20) K/uL PT (9.0-12.0) Seconds INR (0.9-1.1) APTT (21-31) Seconds PTT Ratio Activ Coag Time Kaolin 208 H (94-140) SECONDS POC Sodium (135-144) mmol/L Sodium (136-145) mmol/L POC Potassium (3.3-5.0) mmol/L Potassium (3.5-5.1) mmol/L POC Chloride (101-112) mmol/L Chloride (98-107) mmol/L Carbon Dioxide (21-32) mmol/L POC Total CO2 (24-31) mmol/L Anion Gap (3-11) POC Anion Gap (16-25) mmol/L POC BUN (7-18) mg/dl BUN (6-23) mg/dl Creatinine (0.6-1.4) mg/dl POC Creatinine (0.6-1.3) mg/dl Est Cr Clr Drug Dosing ml/min Est GFR ( Amer) ml/min Est GFR (Non-Af Amer) ml/min BUN/Creatinine Ratio (10-20) Glucose (70-99(Fasting)) mg/dl POC Glucose (other) (70-99) mg/dl Calcium (8.6-10.3) mg/dl POC Ioniz Calcium Dom (1.12-1.32) mmol/l Magnesium (1.7-2.4) mg/dl Total Bilirubin (0.2-1.0) mg/dl AST (13-39) U/L ALT (7-52) U/L Alkaline Phosphatase (34-104) U/L Total Creatine Kinase (30-223) U/L Troponin I High Sens (0-20) pg/ml B-Natriuretic Peptide (0-100) pg/ml Total Protein (6.0-8.3) gm/dl Albumin (3.4-5.0) gm/dl Globulin (2.5-4.0) gm/dl Albumin/Globulin Ratio (0.9-2) Lipase (11-82) U/L TSH (0.300-4.500) uIu/ml SARS-CoV-2, RNA, NAAT (NEGATIVE) Administered Medications Sodium Chloride (Nss) 1,000 mls @ 75 mls/hr IV .[id number] [facility] Stop: 11/17/23 20:14 Last Admin: 10/18/23 21:48 Dose: 75 mls/hr Documented By: GAYLA Eptifibatide (Integrilin) 75 mg in 100 mls @ 15.184 mls/hr IV .[id number] [facility]; Protocol Stop: 10/19/23 08:00 Last Admin: 10/18/23 21:48 Dose: 2 mcg/kg/min, 15.2 mls/hr Documented By: TLM Co-signed By: MADELYN Heparin Sodium/Dextrose (Heparin Sodium/Dextrose) 25,000 units in 500 mls @ 29 mls/hr IV .[id number] [facility]; Protocol Stop: 11/17/23 20:59 Last Admin: 10/18/23 21:49 Dose: 1,450 units/hr, 29 mls/hr Documented By: GAYLA Co-signed By: MADELYN Magnesium Sulfate/Dextrose (Magnesium Sulfate / D5w) 1 gm in 100 mls @ 50 mls/hr IV Q2H [facility] Stop: 10/19/23 01:29 Last Admin: 10/18/23 21:53 Dose: 50 mls/hr Documented By: GAYLA Metoprolol Tartrate (Metoprolol Tartrate 25 Mg Tab) 25 mg PO BID [facility] Stop: 11/17/23 20:59 Last Admin: 10/18/23 22:54 Dose: 25 mg Documented By: GAYLA Discontinued Medications Amiodarone HCl/Dextrose (Amiodarone 150mg / 100ml D5w (Block [employer] Use Only)) Confirm Administered Dose 150 mg IV .STK-MED ONE Stop: 10/18/23 19:00 Last Admin: 10/18/23 21:46 Dose: Not Given Documented By: GAYLA Amiodarone HCl (Amiodarone Hcl Inj 50 Mg/Ml 3 Ml Vial (Block [employer] Use Only)) Confirm Administered Dose 300 mg IV .STK-MED ONE Stop: 10/18/23 19:02 Last Admin: 10/18/23 19:44 Dose: 300 mg Documented By: MICHA Atorvastatin Calcium (Atorvastatin 40 Mg Tab) 40 mg PO NOW STA Stop: 10/18/23 20:20 Last Admin: 10/18/23 22:55 Dose: 40 mg Documented By: TLM Clopidogrel Bisulfate (Clopidogrel Bisulfate 300 Mg Tab) 600 mg PO NOW STA Stop: 10/18/23 20:20 Last Admin: 10/18/23 22:55 Dose: 600 mg Documented By: GAYLA Dopamine HCl/Dextrose (Dopamine 400mg / 250ml D5w (Block [employer] Use Only)) Confirm Administered Dose 400 mg IV .STK-MED ONE Stop: 10/18/23 19:05 Last Admin: 10/18/23 19:44 Dose: 5 mg.per.kg Documented By: TIMOTHY Eptifibatide (Eptifibatide 2 Mg/Ml 10 Ml Vial (Block [employer]pper [employer] Use Only)) Confirm Administered Dose 40 mg IV .STK-MED ONE Stop: 10/18/23 19:57 Last Admin: 10/18/23 20:38 Dose: 8.5 ml Documented By: TIMOTHY Eptifibatide (Eptifibatide 0.75 Mg/Ml 75mg Vial (Block [employer] Use Only)) Confirm Administered Dose 75 mg IV .STK-MED ONE Stop: 10/18/23 19:57 Last Increment: 10/18/23 20:39 Dose: 2 mg Documented By: TIMOTHY Fentanyl Citrate (Fentanyl Citrate Pf 100 Mcg/2 Ml Vial) Confirm Administered Dose 100 mcg .ROUTE .STK-MED ONE Stop: 10/18/23 18:21 Last Increment: 10/18/23 18:24 Dose: 50 mcg Documented By: LISA Fentanyl Citrate (Fentanyl Citrate Pf 100 Mcg/2 Ml Vial) Confirm Administered Dose 100 mcg .ROUTE .STK-MED ONE Stop: 10/18/23 18:25 Last Increment: 10/18/23 19:59 Dose: 50 mcg Documented By: TIMOTHY Heparin Sodium (Porcine) (Heparin Sod (Porcine) 1000 Unit/Ml) 5,000 units IV NOW ONE Stop: 10/18/23 18:10 Last Admin: 10/18/23 18:24 Dose: 5,000 units Documented By: LISA Co-signed By: DAISY Heparin Sodium (Porcine) (Heparin (Porcine) 1000 Unit/Ml 10 Ml (Block [employer] Use Only)) Confirm Administered Dose 10,000 units .ROUTE .STK-MED ONE Stop: 10/18/23 18:25 Last Admin: 10/18/23 20:37 Dose: 6,500 units Documented By: TIMOTHY Heparin Sodium/Dextrose (Heparin 92810 Unit/500 Ml D5w) Confirm Administered Dose 25,000 units IV .STK-MED ONE Stop: 10/18/23 20:11 Last Admin: 10/18/23 21:46 Dose: Not Given Documented By: GAYLA Heparin Sodium/Sodium Chloride (Heparin In Nss Infusion 1000 Unit/500 Ml (2 U/Ml) Bag) Confirm Administered Dose 3,000 units IV .STK-MED ONE Stop: 10/18/23 18:25 Last Admin: 10/18/23 21:45 Dose: Not Given Documented By: GAYLA Calcium Gluconate () 1,000 mg in 60 mls @ 240 mls/hr IV Q15M [facility] Stop: 10/18/23 21:59 Last Admin: 10/18/23 22:48 Dose: 240 mls/hr Documented By: Infusion: 10/18/23 22:25 Dose: Infused Documented By: Admin: 10/18/23 21:57 Dose: 240 mls/hr Documented By: GAYLA Famotidine (Pepcid 20mg Iv Push) 20 mg in 5 mls @ 2.5 mls/min IV NOW STA Stop: 10/18/23 21:44 Last Admin: 10/18/23 22:03 Dose: 2.5 mls/min Documented By: GAYLA Iodixanol (Iodixanol (Visipaque) 320 Mg/Ml 100ml) Confirm Administered Dose 1 ml IV .[facility] ONE Stop: 10/18/23 18:25 Last Admin: 10/18/23 21:45 Dose: Not Given Documented By: GAYLA Ioversol (Optiray 350) Confirm Administered Dose 1 ml .ROUTE .[facility] ONE Stop: 10/18/23 18:25 Last Admin: 10/18/23 20:38 Dose: 275 ml Documented By: JESSICA Metoclopramide HCl (Metoclopramide Hcl Inj 5 Mg/Ml 2 Ml Vial) 10 mg IV ONE ONE Stop: 10/18/23 21:14 Last Admin: 10/18/23 22:02 Dose: 10 mg Documented By: GAYLA Midazolam HCl (Midazolam Hcl 1 Mg/Ml 2ml Vial) Confirm Administered Dose 2 mg .ROUTE .[employer]-MED ONE Stop: 10/18/23 18:24 Last Increment: 10/18/23 19:57 Dose: 1 mg Documented By: TIMOTHY Nicardipine HCl (Nicardipine Hcl Inj 2.5 Mg/Ml 10 Ml Amp) Confirm Administered Dose 25 mg .ROUTE .STK-MED ONE Stop: 10/18/23 18:25 Last Admin: 10/18/23 19:45 Dose: 25 mg Documented By: JESSICA Nitroglycerin/Dextrose (Nitroglycerin/D5w 100mcg/Ml 20ml Syr) Confirm Administered Dose 2,000 mcg .ROUTE .STK-MED ONE Stop: 10/18/23 18:25 Last Admin: 10/18/23 19:45 Dose: 2,000 mcg Documented By: JESSICA Ondansetron HCl (Ondansetron Inj 2 Mg/Ml 2 Ml Vial) 4 mg IV NOW STA Stop: 10/18/23 18:36 Last Admin: 10/18/23 18:37 Dose: 4 mg Documented By: AM Ondansetron HCl (Ondansetron Inj 2 Mg/Ml 2 Ml Vial) Confirm Administered Dose 4 mg .ROUTE .STK-MED ONE Stop: 10/18/23 18:36 Last Admin: 10/18/23 18:37 Dose: Not Given Documented By: AM Phenylephrine HCl (Phenylephrine 100mcg/Ml 5ml Syr) Confirm Administered Dose 100 mcg .ROUTE .STK-MED ONE Stop: 10/18/23 19:28 Last Admin: 10/18/23 20:38 Dose: 200 mcg Documented By: PSA Co-signed By: MICHA Ticagrelor (Ticagrelor 90 Mg Tab) 180 mg PO ONE ONE Stop: 10/18/23 18:10 Last Admin: 10/18/23 18:24 Dose: 180 mg Documented By: AM Imaging Data Radiologist's Impression: Chest X-Ray 10/18/23 18:09 XR chest 1V portable CLINICAL HISTORY: Chest pain, nonspecific TECHNIQUE: Single frontal radiograph of the chest was obtained. Comparison: None available at the time of this dictation. FINDINGS: No lines and tubes are seen. Calcified aortic knob is seen. The lungs are clear. No evidence of pleural effusion or pneumothorax. IMPRESSION: No acute chest disease. ACT 112: Negative or not required by law. Electronically signed by: Reji Correia M.D. 10/18/2023 6:36 PM Discharge Plan Visit Data Chief Complaint: Heart Alert ED Provider: Amol Zamora Discharge Problem: STEMI (ST elevation myocardial infarction) Patient Disposition: Admitted As Inpatient Discharge Instructions Interventions: ED Discharge Assessment Last Done: 10/18/23 18:42
--- NOTE | 2023-10-19 00:18 | Communication Note ---
Date of Service: October 19, 2023 Patient with increased coughing and hypoxia requiring 5-7L. He is without chest pain and does not feel short of breath. Lung sounds on exam with end inspiratory wheeze and fine crackles in bases, cough is raspy in nature and non productive He is without accessory muscle use or appearing in distress A/P DDX: Aspiration pneumonitis vs. pulmonary edema from LV infarction vs. pneumothorax vs. medication reaction or combination of pneumonitis with pulmonary edema - PTHX unlikely as lung sounds are heard throughout - CXR ordered awaiting to be obtained- to eval for opacity, pthx, or lobar collapse - He was with multiple episodes of vomiting earlier as well so it is likely that he may have some pneumonitis from aspiration - no history of asthma or smoking history - cough and wheeze ~ 30 min post BB and Plavix dosing- plavix side effects usually not consistent with above - With the fine crackles will provide 10mg Lasix IV as he is naive to diuretics - Wheezing will provide albuterol nebulizer as needed Leonel GALLOWAY ([facility]-)
[2023-10-19] MEDS: FUROSEMIDE INJ 20 MG/2 ML VIAL IV ONE ×2 (00:26→08:11)
[2023-10-19] MEDS: ALBUTEROL 0.083% NEBU SOLN 3 ML VIAL NEB PRN (00:51)
[2023-10-19 04:51] LABS: Calcium 8.8 mg/dl (8.6-10.3); Magnesium 2.4 mg/dl (1.7-2.4); Potassium 4.1 mmol/L (3.5-5.1)
[2023-10-19 04:56] LABS: BUN Creatinine Ratio 13.8 (10-20); Est GFR (African American) 58.8 ml/min; Est GFR (Non-African American) 50.7 ml/min; Phosphorus 2.5 mg/dl (2.5-4.9)
[2023-10-19 05:08] LABS: Chol HDL Ratio 4.5 (0-5)
[2023-10-19 06:04] LABS: Troponin I High Sensitivity 110886.1 pg/ml (0-20)
--- NOTE | 2023-10-19 07:00 | Electrocardiogram Report ---
Test Reason : Blood Pressure : / mmHG Vent. Rate : 071 BPM Atrial Rate : 071 BPM P-R Int : 000 ms QRS Dur : 070 ms QT Int : 450 ms P-R-T Axes : 000 016 067 degrees QTc Int : 489 ms Poor data quality, interpretation may be adversely affected Sinus rhythm Poor R wave progression, consider anterior TX vs. lead placement vs. LVH Abnormal ECG When compared with ECG of 18-OCT-2023 18:21, (unconfirmed) QRS duration has decreased Confirmed by Jerome Hussein ([id number]) on 10/19/2023 7:00:20 AM Referred By: REFERRED SELF Confirmed By:Gabriel Hussein
--- NOTE | 2023-10-19 07:13 | Critical Care Progress Note ---
Date of Service October 19, 2023 Assessment & Plan (1) STEMI (ST elevation myocardial infarction): (2) Elevated PSA: (3) Hypotensive episode: (4) Electrolyte disturbance: (5) Acute vomiting: Plan Reason Critically Ill: 72 YOM presents to the EMD as heart alert and noted with STEMI, taken urgently to [facility] underwent PCI and MICHAEL x1 to LAD with angioplasty of jailed OM1. Currently receiving Integrilin infusion. Dopamine was weaned off. Did have extensive nausea and vomiting on presentation and periprocedurally and may have had some mild aspiration. Recommendations: Neuro - No acute needs Cardiac - STEMI, s/p MICHAEL to LAD with jailed OM1. Now off pressors. Continue dual antiplatelet therapy and complete Integrilin infusion. Echocardiogram pending. Will need cardiac rehab. Continue to trend troponin until peaks. Gentle diuresis today. Decrease metoprolol to 12.5 twice daily given hypotension with previous dose. Holding LIZZY inhibitor for now until hemodynamics stabilize. Respiratory -probable aspiration event. No indication for pneumonia currently show hold antibiotics. Wean oxygen as tolerated. Will provide incentive spirometry. GI -nausea and vomiting secondary to acute AK. Resolved. Advancing diet as tolerated. RENAL/LYTES -continue ICU electrolyte replacement protocol. -restart Flomax for BPH ENDO - await hemoglobin A1c. HEME - No acute needs ID - NO concern for infective process at this time. If the patient were to develop fevers, low threshold for antibiotics for potential aspiration pneumonia LINES/IV ACCESS - PIV, Radial TR band site care per protocol Continue use of these lines DVT PROPHYLAXIS - Heparin infusion, asa, Plavix, Integrilin, SCDS, ambulation in am. DISPO: Per cardiology. Will sign off once the patient is transferred out of the ICU. Feel free to contact us with questions or concerns Admission and Anticipated Discharge Date Admission Date: October 18, 2023 Subjective Patient seen and examined. EMR reviewed. Discussed with bedside critical care nurse. Patient reports that she is show doing well this morning. His nausea and vomiting is resolved. His cough is also resolved. He is not having any chest pain. He denies any dizziness or lightheadedness. Echocardiogram just completed. Review of Systems Review of Systems: All systems reviewed & are unremarkable except as noted in Subjective Physical Exam Constitutional: WD/WN, vitals as above Neck: trachea midline, no thyromegaly Respiratory: normal respiratory effort, lungs clear to auscultation Cardiovascular: RRR, no murmur, no edema Gastrointestinal (Abdomen): normal bowel sounds, soft, nontender, no hepatosplenomegaly Musculoskeletal: Extremities: extremities normal to inspection Skin: no rashes, warm and dry Neurologic: Nonfocal exam Lymphatic: no cervical lymphadenopathy Results & Data Results & Data Vital Signs (Past 12 Hours) Vital Signs Temp Pulse Pulse Resp BP BP Pulse Ox 10/19/23 06:30 65 22 123/75 95 10/19/23 06:00 65 18 125/75 95 10/19/23 06:00 36.5 C 66 19 123/75 95 10/19/23 05:00 66 23 121/76 95 10/19/23 05:00 36.6 C 63 19 126/76 98 10/19/23 04:30 71 14 125/75 96 10/19/23 04:00 67 18 126/77 93 10/19/23 04:00 36.6 C 20 125/75 97 10/19/23 03:30 67 17 120/77 93 10/19/23 03:00 65 16 125/78 94 10/19/23 02:30 24 122/76 94 10/19/23 02:15 68 22 134/80 95 10/19/23 02:00 36.5 C 10/19/23 02:00 67 22 114/74 93 10/19/23 01:45 140/95 10/19/23 01:30 75 21 122/80 92 10/19/23 01:18 76 20 92 10/19/23 01:15 78 21 145/88 H 91 10/19/23 00:55 87 18 88 L 10/19/23 00:15 76 19 147/83 H 92 10/19/23 00:00 78 22 91 10/19/23 00:00 74 10/18/23 23:45 77 18 138/91 91 10/18/23 23:15 76 20 142/87 H 94 10/18/23 23:00 75 20 138/78 93 10/18/23 23:00 36.6 C 10/18/23 22:45 75 16 131/83 94 10/18/23 22:30 81 19 127/79 95 10/18/23 22:15 77 21 103/89 96 10/18/23 22:00 83 19 131/83 97 10/18/23 21:45 73 21 112/82 98 10/18/23 21:30 73 20 127/68 96 10/18/23 21:30 36.6 C 10/18/23 21:15 67 20 135/69 95 10/18/23 21:11 10/18/23 21:11 69 10/18/23 21:00 10/18/23 20:45 36.7 C 21 10/18/23 20:20 10/18/23 20:15 36.6 C 67 16 125/68 96 O2 Del Method O2 Flow Rate 10/19/23 06:30 High Flow Nasal Cannula 4 10/19/23 06:00 High Flow Nasal Cannula 4 10/19/23 06:00 High Flow Nasal Cannula 4 10/19/23 05:00 High Flow Nasal Cannula 4 10/19/23 05:00 High Flow Nasal Cannula 11 10/19/23 04:30 High Flow Nasal Cannula 11 10/19/23 04:00 High Flow Nasal Cannula 11 10/19/23 04:00 High Flow Nasal Cannula 11 10/19/23 03:30 High Flow Nasal Cannula 11 10/19/23 03:00 High Flow Nasal Cannula 11 10/19/23 02:30 High Flow Nasal Cannula 11 10/19/23 02:15 High Flow Nasal Cannula 8 10/19/23 02:00 10/19/23 02:00 10/19/23 01:45 10/19/23 01:30 Oxymask 8 10/19/23 01:18 Nasal Cannula 11 10/19/23 01:15 Oxymask 8 10/19/23 00:55 Oxymask 9 10/19/23 00:15 Oxymask 8 10/19/23 00:00 Oxymask 8 10/19/23 00:00 10/18/23 23:45 Oxymask 8 10/18/23 23:15 Nasal Cannula 6 10/18/23 23:00 Nasal Cannula 6 10/18/23 23:00 Nasal Cannula 6 10/18/23 22:45 Nasal Cannula 4 10/18/23 22:30 Nasal Cannula 4 10/18/23 22:15 Nasal Cannula 4 10/18/23 22:00 Nasal Cannula 4 10/18/23 21:45 Nasal Cannula 4 10/18/23 21:30 Nasal Cannula 4 10/18/23 21:30 Nasal Cannula 4 10/18/23 21:15 Nasal Cannula 4 10/18/23 21:11 Nasal Cannula 4 10/18/23 21:11 10/18/23 21:00 Nasal Cannula 4 10/18/23 20:45 10/18/23 20:20 Nasal Cannula 4 10/18/23 20:15 Nasal Cannula 4 Critical Care Results & Data Vital Signs (Past 12 Hours) Vital Signs Temp Pulse Pulse Resp BP BP Pulse Ox 10/19/23 06:30 65 22 123/75 95 10/19/23 06:00 65 18 125/75 95 10/19/23 06:00 36.5 C 66 19 123/75 95 10/19/23 05:00 66 23 121/76 95 10/19/23 05:00 36.6 C 63 19 126/76 98 10/19/23 04:30 71 14 125/75 96 10/19/23 04:00 67 18 126/77 93 10/19/23 04:00 36.6 C 20 125/75 97 10/19/23 03:30 67 17 120/77 93 10/19/23 03:00 65 16 125/78 94 10/19/23 02:30 24 122/76 94 10/19/23 02:15 68 22 134/80 95 10/19/23 02:00 36.5 C 10/19/23 02:00 67 22 114/74 93 10/19/23 01:45 140/95 10/19/23 01:30 75 21 122/80 92 10/19/23 01:18 76 20 92 10/19/23 01:15 78 21 145/88 H 91 10/19/23 00:55 87 18 88 L 10/19/23 00:15 76 19 147/83 H 92 10/19/23 00:00 78 22 91 10/19/23 00:00 74 10/18/23 23:45 77 18 138/91 91 10/18/23 23:15 76 20 142/87 H 94 10/18/23 23:00 75 20 138/78 93 10/18/23 23:00 36.6 C 10/18/23 22:45 75 16 131/83 94 10/18/23 22:30 81 19 127/79 95 10/18/23 22:15 77 21 103/89 96 10/18/23 22:00 83 19 131/83 97 10/18/23 21:45 73 21 112/82 98 10/18/23 21:30 73 20 127/68 96 10/18/23 21:30 36.6 C 10/18/23 21:15 67 20 135/69 95 10/18/23 21:11 10/18/23 21:11 69 10/18/23 21:00 10/18/23 20:45 36.7 C 21 10/18/23 20:20 10/18/23 20:15 36.6 C 67 16 125/68 96 O2 Del Method O2 Flow Rate 10/19/23 06:30 High Flow Nasal Cannula 4 10/19/23 06:00 High Flow Nasal Cannula 4 10/19/23 06:00 High Flow Nasal Cannula 4 10/19/23 05:00 High Flow Nasal Cannula 4 10/19/23 05:00 High Flow Nasal Cannula 11 10/19/23 04:30 High Flow Nasal Cannula 11 10/19/23 04:00 High Flow Nasal Cannula 11 10/19/23 04:00 High Flow Nasal Cannula 11 10/19/23 03:30 High Flow Nasal Cannula 11 10/19/23 03:00 High Flow Nasal Cannula 11 10/19/23 02:30 High Flow Nasal Cannula 11 10/19/23 02:15 High Flow Nasal Cannula 8 10/19/23 02:00 10/19/23 02:00 10/19/23 01:45 10/19/23 01:30 Oxymask 8 10/19/23 01:18 Nasal Cannula 11 10/19/23 01:15 Oxymask 8 10/19/23 00:55 Oxymask 9 10/19/23 00:15 Oxymask 8 10/19/23 00:00 Oxymask 8 10/19/23 00:00 10/18/23 23:45 Oxymask 8 10/18/23 23:15 Nasal Cannula 6 10/18/23 23:00 Nasal Cannula 6 10/18/23 23:00 Nasal Cannula 6 10/18/23 22:45 Nasal Cannula 4 10/18/23 22:30 Nasal Cannula 4 10/18/23 22:15 Nasal Cannula 4 10/18/23 22:00 Nasal Cannula 4 10/18/23 21:45 Nasal Cannula 4 10/18/23 21:30 Nasal Cannula 4 10/18/23 21:30 Nasal Cannula 4 10/18/23 21:15 Nasal Cannula 4 10/18/23 21:11 Nasal Cannula 4 10/18/23 21:11 10/18/23 21:00 Nasal Cannula 4 10/18/23 20:45 10/18/23 20:20 Nasal Cannula 4 10/18/23 20:15 Nasal Cannula 4 Lab & Micro Results (Past 24 Hours) RBC 4.23 M/uL (4.70-6.10) L 10/19/23 WBC 12.24 K/ul (4.8-10.8) H 10/19/23 Hgb 13.4 g/dl (14.0-18.0) L 10/19/23 Hct 39.3 % (42.0-52.0) L 10/19/23 MCV 92.9 fL (80.0-100.0) 10/19/23 MCH 31.7 pg (25.0-34.0) 10/19/23 MCHC 34.1 g/dL (32.0-36.0) 10/19/23 RDW Standard Deviation 45.1 fL (36.4-46.3) 10/19/23 RDW Coefficient of Variation 13.2 % (11.5-14.5) 10/19/23 Plt Count 257 K/uL (130-400) 10/19/23 MPV 9.8 fL (9.4-12.4) 10/19/23 Neutrophils (%) (Auto) 64.6 % 10/19/23 Lymphocytes (%) (Auto) 8.3 % 10/19/23 Monocytes # (Auto) 0.83 K/uL (0.11-0.59) H 10/19/23 Eosinophils # (Auto) 2.42 K/uL (0.00-0.50) H 10/19/23 Immature Granulocyte % (Auto) 0.2 % 10/19/23 Neutrophils # (Auto) 7.91 K/uL (1.40-6.50) H 10/19/23 Lymphocytes # (Auto) 1.01 K/uL (1.20-3.40) L 10/19/23 Monocytes # (Auto) 0.83 K/uL (0.11-0.59) H 10/19/23 Eosinophils # (Auto) 2.42 K/uL (0.00-0.50) H 10/19/23 Basophils # (Auto) 0.04 K/uL (0.00-0.20) 10/19/23 Immature Granulocyte # (Auto) 0.03 K/uL (0.01-0.20) 4 Polychromasia 1+ 10/19/23 Toxic Vacuolation 1+ 10/19/23 Na 139 mmol/L (136-145) 10/19/23 K 4.1 mmol/L (3.5-5.1) 10/19/23 Cl 109 mmol/L (98-107) H 10/19/23 CO2 22 mmol/L (21-32) 10/19/23 Anion Gap 8 (3-11) 10/19/23 BUN 19 mg/dl (6-23) 10/19/23 Creatinine 1.38 mg/dl (0.6-1.4) 10/19/23 Estimated GFR ( Amer) 58.8 ml/min 10/19/23 Estimated GFR (Non-Af Amer) 50.7 ml/min 10/19/23 BUN/Creatinine Ratio 13.8 (10-20) 10/19/23 Glu 132 mg/dl (70-99(Fasting)) H 10/19/23 Ca 8.8 mg/dl (8.6-10.3) 10/19/23 Phosphorus Level 2.5 mg/dl (2.5-4.9) 10/19/23 Total Bilirubin 0.5 mg/dl (0.2-1.0) 10/18/23 AST 24 U/L (13-39) 10/18/23 ALT 18 U/L (7-52) 10/18/23 Alkaline Phosphatase 54 U/L (34-104) 10/18/23 TP 6.7 gm/dl (6.0-8.3) 10/18/23 Albumin 3.8 gm/dl (3.4-5.0) 10/18/23 Globulin 2.9 gm/dl (2.5-4.0) 10/18/23 Albumin/Globulin Ratio 1.3 (0.9-2) 10/18/23 Mg 2.4 mg/dl (1.7-2.4) 10/19/23 04:06 Calcium Level 8.8 mg/dl (8.6-10.3) 10/19/23 04:06 Prothromb Time International Ratio 1.0 (0.9-1.1) 10/18/23 18:2 2 Diagnostic Findings (Past 24 Hours) Chest X-Ray 10/18/23 18:09 XR chest 1V portable CLINICAL HISTORY: Chest pain, nonspecific TECHNIQUE: Single frontal radiograph of the chest was obtained. Comparison: None available at the time of this dictation. FINDINGS: No lines and tubes are seen. Calcified aortic knob is seen. The lungs are clear. No evidence of pleural effusion or pneumothorax. IMPRESSION: No acute chest disease. ACT 112: Negative or not required by law. Electronically signed by: Reji Correia M.D. 10/18/2023 6:36 PM I & O Totals 24 Hours 10/18/23 10/19/23 10/20/23 06:59 06:59 06:59 Intake Total 1053.390 / 1053.390 91.96 / 91.96 Output Total 1701 / 1701 Balance -647.610 / -647.610 91.96 / 91.96 Cumulative 10/18/23 18:06 thru 10/19/23 07:08 Intake Total 1145.350 Output Total 1701 Balance -555.650 RT Ventilator Mngmt (Last Documented) Ventilator Ordered Settings Respiratory Rate 22 10/19/23 06:30 Ventilator - PT Measurements Respiratory Rate 22 Coding Level of Care Code 80807 SUB INP/OBS CARE 3/50MIN Diagnoses STEMI (ST elevation myocardial infarction) I21.3 Elevated PSA R97.20 Hypotensive episode I95.9 Electrolyte disturbance E87.8 Acute vomiting R11.10
[2023-10-19 07:15] LABS: Basophils # (auto) 0.04 K/uL (0.00-0.20); Basophils % (auto) 0.3 %; Eosinophils # (auto) 2.42 K/uL (0.00-0.50); Eosinophils % (auto) 19.8 %; Hematocrit (blood only) 39.3 % (42.0-52.0); Hemoglobin 13.4 g/dl (14.0-18.0); Immature Granulocytes # (auto) 0.03 K/uL (0.01-0.20); Immature Granulocytes % (auto) 0.2 %; Lymphocytes # (auto) 1.01 K/uL (1.20-3.40); Lymphocytes % (auto) 8.3 %; Mean Corpuscular Hemoglobin 31.7 pg (25.0-34.0); Mean Corpuscular Hgb Conc 34.1 g/dL (32.0-36.0); Mean Corpuscular Volume 92.9 fL (80.0-100.0); Mean Platelet Volume 9.8 fL (9.4-12.4); Monocytes # (auto) 0.83 K/uL (0.11-0.59); Monocytes % (auto) 6.8 %; Neutrophils # (auto) 7.91 K/uL (1.40-6.50); Neutrophils % (auto) 64.6 %; Platelet Count 257 K/uL (130-400); Polychromasia 1+; RDW Coefficient of Variation 13.2 % (11.5-14.5); RDW Standard Deviation 45.1 fL (36.4-46.3); Red Blood Count 4.23 M/uL (4.70-6.10); Toxic Vacuolation 1+; White Blood Count 12.24 K/ul (4.8-10.8)
[2023-10-19] MEDS ORDERED: ICU Protocol for HYPERglycemia SCH (07:30)
--- NOTE | 2023-10-19 08:02 | XRay Report ---
XR chest 1V portable HISTORY: hypoxia - eval for pulm edema/opacity COMPARISON: Chest 10/18/2023. FINDINGS: No pneumothorax. No pleural effusions. The cardiac silhouette is normal in size. Perihilar interstitial/vascular thickening has progressed suggestive of mild pulmonary edema. IMPRESSION: Interval progression of the perihilar/interstitial thickening suggestive of mild pulmonary edema. ACT 112: Negative or not required by law. Electronically signed by: Otto Moran M.D. 10/19/2023 8:01 AM
[2023-10-19] MEDS: ATORVASTATIN 40 MG TAB PO SCH (08:11)
[2023-10-19] MEDS: CLOPIDOGREL BISULFATE 75 MG TAB PO SCH (08:11)
[2023-10-19] MEDS: METOPROLOL TARTRATE 25 MG TAB PO SCH (08:11)
[2023-10-19] MEDS: ICU Protocol for HYPERglycemia SCH (08:12)
[2023-10-19] MEDS: POT PHOSPHATE MONOBASIC W/ SOD TAB PO SCH (08:28)
[2023-10-19 08:48] LABS: Estimated Average Glucose 114 mg/dl; Hemoglobin A1C 5.6 % (4.5-5.6)
[2023-10-19] MEDS: ICU ELECTROLYTE REPLACEMENT PROTOCOL SCH (09:16)
--- NOTE | 2023-10-19 09:44 | Electrocardiogram Report ---
Test Reason : Blood Pressure : / mmHG Vent. Rate : 067 BPM Atrial Rate : 067 BPM P-R Int : 154 ms QRS Dur : 086 ms QT Int : 400 ms P-R-T Axes : 038 046 082 degrees QTc Int : 422 ms Normal sinus rhythm Nonspecific ST and T wave abnormality Abnormal ECG When compared with ECG of 18-OCT-2023 20:35, Criteria for Anteroseptal infarct are no longer Present ST no longer depressed in Inferior leads ST elevation has replaced ST depression in Anterior leads Nonspecific T wave abnormality, worse in Lateral leads QT has shortened Confirmed by Jerome Hussein ([id number]) on 10/19/2023 9:44:36 AM Referred By: REFERRED SELF Confirmed By:Gabriel Hussein
--- NOTE | 2023-10-19 09:48 | Electrocardiogram Report ---
Test Reason : Blood Pressure : / mmHG Vent. Rate : 068 BPM Atrial Rate : 068 BPM P-R Int : 128 ms QRS Dur : 096 ms QT Int : 410 ms P-R-T Axes : 060 036 -10 degrees QTc Int : 435 ms Normal sinus rhythm Anteroseptal infarct (cited on or before 18-OCT-2023) ACUTE MD / STEMI Abnormal ECG When compared with ECG of 18-OCT-2023 18:19, (unconfirmed) Premature supraventricular complexes are no longer Present Confirmed by Jerome Hussein ([id number]) on 10/19/2023 9:48:49 AM Referred By: REFERRED SELF Confirmed By:Gabriel Hussein
--- NOTE | 2023-10-19 10:09 | Cardiology Consultation ---
Date of Consultation October 19, 2023 Assessment & Plan (1) STEMI (ST elevation myocardial infarction): (2) Hyperlipidemia: (3) Urinary retention: Plan 72-year-old male presented with acute anterior myocardial infarction early in course of symptoms and underwent emergent coronary intervention with excellent clinical result opening proximal LAD, angioplasty balloon diagonal. Currently asymptomatic but last evening course complicated by urinary retention requiring Malone insertion Plan as below 1. Acute anterior infarct, proximal LAD occlusion: Discussed in detail with patient with plan dual antiplatelet therapy preferably 1 year minimum 6 months. Echocardiogram with reduced ejection fraction. Will begin metoprolol succinate 12.5 mg twice per day. Add low-dose Entresto while in hospital 2. Mildly reduced ejection fraction with findings consistent with anterior apical infarct: As above. EF 40-45%. Would place cardiac rehab consultation and discuss/place CHF instructions 3. Urinary retention and elevated PSA, hematuria post Malone. Will attempt to continue low-dose tamsulosin. Patient scheduled to see urology as outpatient tomorrow would consider inpatient consultation Will need to hold sildenafil at least initially Cardiology will follow History of Present Illness Reason for Consultation: Status post STEMI proximal LAD occlusion Requesting Physician: Mary Hospitalist Attending Physician: Reba Boyd MD History of Present Illness Patient is a 72-year-old male with out prior cardiac concerns. Underlying medical issues include hyperlipidemia in the past elevated PSA with urinary retention. Patient presented this admission noting after exercising in the afternoon day of admission, eating a small meal developing substernal chest pressure and discomfort. Symptoms worsened and patient sought hospital presentation via 911 EKG on presentation acute anteroseptal infarct with heart alert called Patient underwent emergent coronary intervention proximal LAD occlusion angioplasty left anterior sending diagonal. Clinical course complicated by nausea vomiting and urinary retention last night Malone in place Currently AF symptomatic from a cardiac standpoint no chest pain, shortness of breath, cough. No significant arrhythmias on telemetry Blood pressures improved Urine draining from Malone hemorrhagic No recent fevers or chills Remote2014, lipid panel reviewed demonstrate significant LDL elevation. Echocardiogram today with severe hypokinesis of mid and apical septum, apical inferior and anterior wall EF 40-45% On full review of systems patient has had issues with elevated PSA and urinary retention. Has been using sildenafil both for libido effect as well as low-dose daily for urinary retention. Allergies Allergy/AdvReac Type Severity Reaction Status Date / Time acetaminophen Allergy Unknown HIVES Verified 04/21/09 03:41 Home Medications Medication Instructions Recorded Confirmed Type tadalafil 2.5 mg tablet 2.5 mg PO DIRECTED PRN Sexual 10/18/23 10/18/23 History Activity tamsulosin 0.4 mg capsule 0.4 mg PO DAILY 10/18/23 10/18/23 History Patient History Medical History Elevated PSA Family History Other Family history non-contributory Social History Smoking Status: Never smoker Second Hand Exposure: No; Do You Dip or Chew Tobacco: No; Tobacco Cessation Education Requested by Patient: No Hx Alcohol Use: Yes Alcohol type: wine Hx Substance Use: No Preferred Language: Yoruba Communication Ability: Effective Tutor Required: No Beliefs That Will Affect Care: None Current Living Situation: Spouse Other Information That Helps Us Care for You: No Feels Safe at Home: Yes Safety Concerns: Feels Safe At This Time Assistive Devices: Contacts Review of Systems Review of Systems: All systems reviewed & are unremarkable except as noted in HPI & below Physical Exam Constitutional: WD/WN, vitals as above no acute distress Eyes: PERRL, conjunctivae normal, anicteric sclerae ENMT: external ear and nose normal, oropharynx normal Neck: trachea midline, no thyromegaly Respiratory: normal respiratory effort, lungs clear to auscultation Cardiovascular: RRR, no murmur, no edema Vessels: radial pulses present (Right radial access site healing well); no JVD Extremities: no edema Gastrointestinal (Abdomen): normal bowel sounds, soft, nontender, no hepatosplenomegaly Musculoskeletal: no cyanosis or clubbing, extremities motor strength 5/5 Results & Data Vital Signs (Past 12 Hours) Vital Signs Temp Pulse Pulse Resp BP BP Pulse Ox 10/19/23 09:15 71 17 95 10/19/23 08:12 75 20 96 10/19/23 08:00 69 10/19/23 08:00 123/72 10/19/23 08:00 10/19/23 07:45 147/90 H 10/19/23 07:30 66 20 93 10/19/23 07:15 127/73 10/19/23 07:00 37.1 C 10/19/23 06:30 65 22 123/75 95 10/19/23 06:00 65 18 125/75 95 10/19/23 06:00 36.5 C 66 19 123/75 95 10/19/23 05:00 66 23 121/76 95 10/19/23 05:00 36.6 C 63 19 126/76 98 10/19/23 04:30 71 14 125/75 96 10/19/23 04:00 67 18 126/77 93 10/19/23 04:00 36.6 C 20 125/75 97 10/19/23 03:30 67 17 120/77 93 10/19/23 03:00 65 16 125/78 94 10/19/23 02:30 24 122/76 94 10/19/23 02:15 68 22 134/80 95 10/19/23 02:00 36.5 C 10/19/23 02:00 67 22 114/74 93 10/19/23 01:45 140/95 10/19/23 01:30 75 21 122/80 92 10/19/23 01:18 76 20 92 10/19/23 01:15 78 21 145/88 H 91 10/19/23 00:55 87 18 88 L 10/19/23 00:15 76 19 147/83 H 92 10/19/23 00:00 78 22 91 10/19/23 00:00 74 10/18/23 23:45 77 18 138/91 91 10/18/23 23:15 76 20 142/87 H 94 10/18/23 23:00 75 20 138/78 93 10/18/23 23:00 36.6 C 10/18/23 22:45 75 16 131/83 94 10/18/23 22:30 81 19 127/79 95 10/18/23 22:15 77 21 103/89 96 O2 Del Method O2 Flow Rate 10/19/23 09:15 10/19/23 08:12 10/19/23 08:00 10/19/23 08:00 10/19/23 08:00 Room Air 10/19/23 07:45 10/19/23 07:30 10/19/23 07:15 10/19/23 07:00 Nasal Cannula 4 10/19/23 06:30 High Flow Nasal Cannula 4 10/19/23 06:00 High Flow Nasal Cannula 4 10/19/23 06:00 High Flow Nasal Cannula 4 10/19/23 05:00 High Flow Nasal Cannula 4 10/19/23 05:00 High Flow Nasal Cannula 11 10/19/23 04:30 High Flow Nasal Cannula 11 10/19/23 04:00 High Flow Nasal Cannula 11 10/19/23 04:00 High Flow Nasal Cannula 11 10/19/23 03:30 High Flow Nasal Cannula 11 10/19/23 03:00 High Flow Nasal Cannula 11 10/19/23 02:30 High Flow Nasal Cannula 11 10/19/23 02:15 High Flow Nasal Cannula 8 10/19/23 02:00 10/19/23 02:00 10/19/23 01:45 10/19/23 01:30 Oxymask 8 10/19/23 01:18 Nasal Cannula 11 10/19/23 01:15 Oxymask 8 10/19/23 00:55 Oxymask 9 10/19/23 00:15 Oxymask 8 10/19/23 00:00 Oxymask 8 10/19/23 00:00 10/18/23 23:45 Oxymask 8 10/18/23 23:15 Nasal Cannula 6 10/18/23 23:00 Nasal Cannula 6 10/18/23 23:00 Nasal Cannula 6 10/18/23 22:45 Nasal Cannula 4 10/18/23 22:30 Nasal Cannula 4 10/18/23 22:15 Nasal Cannula 4 Laboratory Results Laboratory Results - last 24 hr 10/18/23 10/18/23 10/18/23 18:22 18:26 18:29 WBC 8.79 RBC 4.50 L Hgb 14.1 POC Hgb 13.6 L Hct 41.3 L POC Hct 40 L MCV 91.8 MCH 31.3 MCHC 34.1 RDW Std Deviation 44.1 RDW Coeff of Gregoria 13.0 Plt Count 262 MPV 9.3 L Immature Gran % (Auto) 0.2 Neut % (Auto) 52.5 Lymph % (Auto) 37.5 [place] % (Auto) 8.4 Eos % (Auto) 0.8 Baso % (Auto) 0.6 Neut # (Auto) 4.61 Lymph # (Auto) 3.30 [place] # (Auto) 0.74 H Eos # (Auto) 0.07 Baso # (Auto) 0.05 Immature Gran # (Auto) 0.02 Toxic Vacuolation Polychromasia PT 11.0 INR 1.0 APTT 23 PTT Ratio 0.9 Activ Coag Time Kaolin POC Sodium 141 Sodium 139 POC Potassium 3.9 Potassium 4.0 POC Chloride 110 Chloride 107 Carbon Dioxide 19 L POC Total CO2 17 L Anion Gap 13 H POC Anion Gap 19.0 POC BUN 19 H BUN 20 Creatinine 1.39 POC Creatinine 1.5 H Est Cr Clr Drug Dosing 55.6 Est GFR ( Amer) 58.3 Est GFR (Non-Af Amer) 50.3 BUN/Creatinine Ratio 14.4 Glucose 158 H POC Glucose POC Glucose (other) 156 H Estimat Average Glucose Hemoglobin A1c Calcium 9.1 POC Ioniz Calcium Dom 1.04 L Phosphorus Magnesium 1.8 Total Bilirubin 0.5 AST 24 ALT 18 Alkaline Phosphatase 54 Total Creatine Kinase 114 Troponin I High Sens 3.6 B-Natriuretic Peptide 33 Total Protein 6.7 Albumin 3.8 Globulin 2.9 Albumin/Globulin Ratio 1.3 Triglycerides Cholesterol LDL Cholesterol, Calc VLDL Cholesterol, Calc HDL Cholesterol Cholesterol/HDL Ratio Lipase 33 TSH 1.466 Nasal Screen MRSA (PCR) SARS-CoV-2, RNA, NAAT NEGATIVE 10/18/23 10/18/23 10/18/23 18:54 19:17 19:33 WBC RBC Hgb POC Hgb Hct POC Hct MCV MCH MCHC RDW Std Deviation RDW Coeff of Gregoria Plt Count MPV Immature Gran % (Auto) Neut % (Auto) Lymph % (Auto) [place] % (Auto) Eos % (Auto) Baso % (Auto) Neut # (Auto) Lymph # (Auto) [place] # (Auto) Eos # (Auto) Baso # (Auto) Immature Gran # (Auto) Toxic Vacuolation Polychromasia PT INR APTT PTT Ratio Activ Coag Time Kaolin 177 H 226 H 214 H POC Sodium Sodium POC Potassium Potassium POC Chloride Chloride Carbon Dioxide POC Total CO2 Anion Gap POC Anion Gap POC BUN BUN Creatinine POC Creatinine Est Cr Clr Drug Dosing Est GFR ( Amer) Est GFR (Non-Af Amer) BUN/Creatinine Ratio Glucose POC Glucose POC Glucose (other) Estimat Average Glucose Hemoglobin A1c Calcium POC Ioniz Calcium Dom Phosphorus Magnesium Total Bilirubin AST ALT Alkaline Phosphatase Total Creatine Kinase Troponin I High Sens B-Natriuretic Peptide Total Protein Albumin Globulin Albumin/Globulin Ratio Triglycerides Cholesterol LDL Cholesterol, Calc VLDL Cholesterol, Calc HDL Cholesterol Cholesterol/HDL Ratio Lipase TSH Nasal Screen MRSA (PCR) SARS-CoV-2, RNA, NAAT 10/18/23 10/18/23 10/18/23 19:57 21:20 22:03 WBC 13.06 H RBC 4.47 L Hgb 14.0 POC Hgb Hct 42.0 POC Hct MCV 94.0 MCH 31.3 MCHC 33.3 RDW Std Deviation 45.2 RDW Coeff of Gregoria 13.2 Plt Count 219 MPV 9.0 L Immature Gran % (Auto) 0.3 Neut % (Auto) 85.4 Lymph % (Auto) 8.6 [place] % (Auto) 5.4 Eos % (Auto) 0.1 Baso % (Auto) 0.2 Neut # (Auto) 11.17 H Lymph # (Auto) 1.12 L [place] # (Auto) 0.70 H Eos # (Auto) 0.01 Baso # (Auto) 0.02 Immature Gran # (Auto) 0.04 Toxic Vacuolation Polychromasia PT INR APTT PTT Ratio Activ Coag Time Kaolin 208 H POC Sodium Sodium POC Potassium Potassium POC Chloride Chloride Carbon Dioxide POC Total CO2 Anion Gap POC Anion Gap POC BUN BUN Creatinine POC Creatinine Est Cr Clr Drug Dosing Est GFR ( Amer) Est GFR (Non-Af Amer) BUN/Creatinine Ratio Glucose POC Glucose POC Glucose (other) Estimat Average Glucose 114 Hemoglobin A1c 5.6 Calcium POC Ioniz Calcium Dom Phosphorus Magnesium Total Bilirubin AST ALT Alkaline Phosphatase Total Creatine Kinase Troponin I High Sens B-Natriuretic Peptide Total Protein Albumin Globulin Albumin/Globulin Ratio Triglycerides Cholesterol LDL Cholesterol, Calc VLDL Cholesterol, Calc HDL Cholesterol Cholesterol/HDL Ratio Lipase TSH Nasal Screen MRSA (PCR) Negative SARS-CoV-2, RNA, NAAT 10/18/23 10/19/23 10/19/23 22:29 03:35 04:06 WBC RBC Hgb POC Hgb Hct POC Hct MCV MCH MCHC RDW Std Deviation RDW Coeff of Gregoria Plt Count MPV Immature Gran % (Auto) Neut % (Auto) Lymph % (Auto) [place] % (Auto) Eos % (Auto) Baso % (Auto) Neut # (Auto) Lymph # (Auto) [place] # (Auto) Eos # (Auto) Baso # (Auto) Immature Gran # (Auto) Toxic Vacuolation Polychromasia PT INR APTT PTT Ratio Activ Coag Time Kaolin POC Sodium Sodium 139 POC Potassium Potassium 4.1 POC Chloride Chloride 109 H Carbon Dioxide 22 POC Total CO2 Anion Gap 8 POC Anion Gap POC BUN BUN 19 Creatinine 1.38 POC Creatinine Est Cr Clr Drug Dosing 50.0 Est GFR ( Amer) 58.8 Est GFR (Non-Af Amer) 50.7 BUN/Creatinine Ratio 13.8 Glucose 132 H POC Glucose 157 H 129 H POC Glucose (other) Estimat Average Glucose Hemoglobin A1c Calcium 8.8 POC Ioniz Calcium Dom Phosphorus 2.5 Magnesium 2.4 Total Bilirubin AST ALT Alkaline Phosphatase Total Creatine Kinase Troponin I High Sens 001767.1 H* D B-Natriuretic Peptide Total Protein Albumin Globulin Albumin/Globulin Ratio Triglycerides 81 Cholesterol 203 H LDL Cholesterol, Calc 142 VLDL Cholesterol, Calc 16 HDL Cholesterol 45 Cholesterol/HDL Ratio 4.5 Lipase TSH Nasal Screen MRSA (PCR) SARS-CoV-2, RNA, NAAT 10/19/23 10/19/23 04:12 07:45 WBC 12.24 H RBC 4.23 L Hgb 13.4 L POC Hgb Hct 39.3 L POC Hct MCV 92.9 MCH 31.7 MCHC 34.1 RDW Std Deviation 45.1 RDW Coeff of Gregoria 13.2 Plt Count 257 MPV 9.8 Immature Gran % (Auto) 0.2 Neut % (Auto) 64.6 Lymph % (Auto) 8.3 [place] % (Auto) 6.8 Eos % (Auto) 19.8 Baso % (Auto) 0.3 Neut # (Auto) 7.91 H Lymph # (Auto) 1.01 L [place] # (Auto) 0.83 H Eos # (Auto) 2.42 H Baso # (Auto) 0.04 Immature Gran # (Auto) 0.03 Toxic Vacuolation 1+ Polychromasia 1+ PT INR APTT PTT Ratio Activ Coag Time Kaolin POC Sodium Sodium POC Potassium Potassium POC Chloride Chloride Carbon Dioxide POC Total CO2 Anion Gap POC Anion Gap POC BUN BUN Creatinine POC Creatinine Est Cr Clr Drug Dosing Est GFR ( Amer) Est GFR (Non-Af Amer) BUN/Creatinine Ratio Glucose POC Glucose 110 H POC Glucose (other) Estimat Average Glucose Hemoglobin A1c Calcium POC Ioniz Calcium Dom Phosphorus Magnesium Total Bilirubin AST ALT Alkaline Phosphatase Total Creatine Kinase Troponin I High Sens B-Natriuretic Peptide Total Protein Albumin Globulin Albumin/Globulin Ratio Triglycerides Cholesterol LDL Cholesterol, Calc VLDL Cholesterol, Calc HDL Cholesterol Cholesterol/HDL Ratio Lipase TSH Nasal Screen MRSA (PCR) SARS-CoV-2, RNA, NAAT
[2023-10-19] MEDS: VALSARTAN/SACUBITRIL 26/24MG TAB PO SCH (10:32)
[2023-10-19] MEDS: ASPIRIN 81 MG ECTAB PO SCH (10:39)
--- NOTE | 2023-10-19 11:10 | Hospitalist Progress Note ---
Date of Service October 19, 2023 Assessment & Plan (1) STEMI (ST elevation myocardial infarction): Plan: 72-year-old male with past medical history significant for BPH and elevated PSAs supposed to see urology coming Friday comes because of chest pain and found to have ST elevated PA s/p emergent cardiac cath and drug-eluting stent to LAD currently chest pain-free but had a lot of nausea. Patient states from 3:10 PM to 4:10 PM he was on a treadmill. After that he had a snack and took shower. Around 5 PM started noticed chest pain middle of the chest. No radiation. At that time no nausea. No dizziness. Initially thought heartburn but the pain was very severe he told his he wanted to go to hospital as he walked to the car told his to call ambulance. While waiting for ambulance he was having some sweating. In ER patient was called heart alert and s/p cardiac cath. Currently chest pain resolved. Having a lot of nausea , states from the medications he got in the hospital Denies any headache. Vision is okay. No cough. No recent fevers. No shortness of breath. No abdominal pain. Normal bowel and bladder movements. Patient states he exercises 4 times a week. Did not get any chest pain before. No smoking history. No family history of heart disease. Acute ST elevated PA S/p cardiac cath and drug-eluting stent to LAD and PTCA/stent strut dilatation of the jailed ostium of the large first diagonal. Patient vomited after having this p.o. antiplatelets Off hep gtt and integrillin drip Continue ASA and plavix Started on metoprolol succinate and Entresto Cards eval and recs noted TTE noted mild conc LVH, severe hypokinesis of mid and apical septum and apical inf ant wall, EF 40-45%, GI DD. mild AV sclerosis without significant stenosis BPH On Flomax Continue fuller for now and monitor resolution of hematuria Follow-up with urology DVT prophylaxis Ambulate Off hep gtt. Monitor hematuria. Hb Full code I spent a total of 50 minutes coordinating, documenting and providing care for this patient excluding time spent in performance of separately billed services Admission and Anticipated Discharge Date Admission Date: October 18, 2023 Subjective Patient seen and examined Presented with chest pain, found to have STEMI S/p cardiac cath with PCI to LAD, and PTCA No chest pain, cough or shortness of breath No new complaints this morning Has BPH and obstructive symptoms usually at night Had fuller placed last night and currently has hematuria Physical Exam Constitutional: + well hydrated; no acute distress Eyes: PERRL, conjunctivae normal, anicteric sclerae ENMT: external ear and nose normal, oropharynx normal Respiratory: normal respiratory effort, lungs clear to auscultation Cardiovascular: Rate/Rhythm: regular rate and regular rhythm S1 S2 Gastrointestinal (Abdomen): normal bowel sounds, soft, nontender, no hepatosplenomegaly Musculoskeletal: no cyanosis or clubbing, extremities motor strength 5/5 Neurologic: PERRL, EOMI, accommodation nl, no face palsy, no dysarthria Psychiatric: A+Ox3, euthymic affect Genitourinary: Fuller in situ with bloody urine Results & Data Results & Data Vital Signs (Past 12 Hours) Vital Signs Temp Pulse Pulse Resp BP BP Pulse Ox 10/19/23 09:15 71 17 95 10/19/23 08:12 75 20 96 10/19/23 08:00 69 10/19/23 08:00 123/72 10/19/23 08:00 10/19/23 07:45 147/90 H 10/19/23 07:30 66 20 93 10/19/23 07:15 127/73 10/19/23 07:00 37.1 C 10/19/23 06:30 65 22 123/75 95 10/19/23 06:00 65 18 125/75 95 10/19/23 06:00 36.5 C 66 19 123/75 95 10/19/23 05:00 66 23 121/76 95 10/19/23 05:00 36.6 C 63 19 126/76 98 10/19/23 04:30 71 14 125/75 96 10/19/23 04:00 67 18 126/77 93 10/19/23 04:00 36.6 C 20 125/75 97 10/19/23 03:30 67 17 120/77 93 10/19/23 03:00 65 16 125/78 94 10/19/23 02:30 24 122/76 94 10/19/23 02:15 68 22 134/80 95 10/19/23 02:00 36.5 C 10/19/23 02:00 67 22 114/74 93 10/19/23 01:45 140/95 10/19/23 01:30 75 21 122/80 92 10/19/23 01:18 76 20 92 10/19/23 01:15 78 21 145/88 H 91 10/19/23 00:55 87 18 88 L 10/19/23 00:15 76 19 147/83 H 92 10/19/23 00:00 78 22 91 10/19/23 00:00 74 10/18/23 23:45 77 18 138/91 91 10/18/23 23:15 76 20 142/87 H 94 O2 Del Method O2 Flow Rate 10/19/23 09:15 10/19/23 08:12 10/19/23 08:00 10/19/23 08:00 10/19/23 08:00 Room Air 10/19/23 07:45 10/19/23 07:30 10/19/23 07:15 10/19/23 07:00 Nasal Cannula 4 10/19/23 06:30 High Flow Nasal Cannula 4 10/19/23 06:00 High Flow Nasal Cannula 4 10/19/23 06:00 High Flow Nasal Cannula 4 10/19/23 05:00 High Flow Nasal Cannula 4 10/19/23 05:00 High Flow Nasal Cannula 11 10/19/23 04:30 High Flow Nasal Cannula 11 10/19/23 04:00 High Flow Nasal Cannula 11 10/19/23 04:00 High Flow Nasal Cannula 11 10/19/23 03:30 High Flow Nasal Cannula 11 10/19/23 03:00 High Flow Nasal Cannula 11 10/19/23 02:30 High Flow Nasal Cannula 11 10/19/23 02:15 High Flow Nasal Cannula 8 10/19/23 02:00 10/19/23 02:00 10/19/23 01:45 10/19/23 01:30 Oxymask 8 10/19/23 01:18 Nasal Cannula 11 10/19/23 01:15 Oxymask 8 10/19/23 00:55 Oxymask 9 10/19/23 00:15 Oxymask 8 10/19/23 00:00 Oxymask 8 10/19/23 00:00 10/18/23 23:45 Oxymask 8 10/18/23 23:15 Nasal Cannula 6 Laboratory Results Abnormal lab results 10/18/23 10/18/23 10/18/23 Range/Units 18:22 18:26 18:54 WBC (4.8-10.8) K/ul RBC 4.50 L (4.70-6.10) M/uL Hgb (14.0-18.0) g/dl POC Hgb 13.6 L (14.0-18.0) g/dl Hct 41.3 L (42.0-52.0) % POC Hct 40 L (42-52) % MPV 9.3 L (9.4-12.4) fL Neut # (Auto) (1.40-6.50) K/uL Lymph # (Auto) (1.20-3.40) K/uL [place] # (Auto) 0.74 H (0.11-0.59) K/uL Eos # (Auto) (0.00-0.50) K/uL Activ Coag Time Kaolin 177 H (94-140) SECONDS Chloride (98-107) mmol/L Carbon Dioxide 19 L (21-32) mmol/L POC Total CO2 17 L (24-31) mmol/L Anion Gap 13 H (3-11) POC BUN 19 H (7-18) mg/dl POC Creatinine 1.5 H (0.6-1.3) mg/dl Glucose 158 H (70-99(Fasting)) mg/dl POC Glucose (70-99) mg/dl POC Glucose (other) 156 H (70-99) mg/dl POC Ioniz Calcium Dom 1.04 L (1.12-1.32) mmol/l Troponin I High Sens (0-20) pg/ml Cholesterol (0-200) mg/dl 10/18/23 10/18/23 10/18/23 Range/Units 19:17 19:33 19:57 WBC (4.8-10.8) K/ul RBC (4.70-6.10) M/uL Hgb (14.0-18.0) g/dl POC Hgb (14.0-18.0) g/dl Hct (42.0-52.0) % POC Hct (42-52) % MPV (9.4-12.4) fL Neut # (Auto) (1.40-6.50) K/uL Lymph # (Auto) (1.20-3.40) K/uL [place] # (Auto) (0.11-0.59) K/uL Eos # (Auto) (0.00-0.50) K/uL Activ Coag Time Kaolin 226 H 214 H 208 H (94-140) SECONDS Chloride (98-107) mmol/L Carbon Dioxide (21-32) mmol/L POC Total CO2 (24-31) mmol/L Anion Gap (3-11) POC BUN (7-18) mg/dl POC Creatinine (0.6-1.3) mg/dl Glucose (70-99(Fasting)) mg/dl POC Glucose (70-99) mg/dl POC Glucose (other) (70-99) mg/dl POC Ioniz Calcium Dom (1.12-1.32) mmol/l Troponin I High Sens (0-20) pg/ml Cholesterol (0-200) mg/dl 10/18/23 10/18/23 10/19/23 Range/Units 22:03 22:29 03:35 WBC 13.06 H (4.8-10.8) K/ul RBC 4.47 L (4.70-6.10) M/uL Hgb (14.0-18.0) g/dl POC Hgb (14.0-18.0) g/dl Hct (42.0-52.0) % POC Hct (42-52) % MPV 9.0 L (9.4-12.4) fL Neut # (Auto) 11.17 H (1.40-6.50) K/uL Lymph # (Auto) 1.12 L (1.20-3.40) K/uL [place] # (Auto) 0.70 H (0.11-0.59) K/uL Eos # (Auto) (0.00-0.50) K/uL Activ Coag Time Kaolin (94-140) SECONDS Chloride (98-107) mmol/L Carbon Dioxide (21-32) mmol/L POC Total CO2 (24-31) mmol/L Anion Gap (3-11) POC BUN (7-18) mg/dl POC Creatinine (0.6-1.3) mg/dl Glucose (70-99(Fasting)) mg/dl POC Glucose 157 H 129 H (70-99) mg/dl POC Glucose (other) (70-99) mg/dl POC Ioniz Calcium Dom (1.12-1.32) mmol/l Troponin I High Sens (0-20) pg/ml Cholesterol (0-200) mg/dl 10/19/23 10/19/23 10/19/23 Range/Units 04:06 04:12 07:45 WBC 12.24 H (4.8-10.8) K/ul RBC 4.23 L (4.70-6.10) M/uL Hgb 13.4 L (14.0-18.0) g/dl POC Hgb (14.0-18.0) g/dl Hct 39.3 L (42.0-52.0) % POC Hct (42-52) % MPV (9.4-12.4) fL Neut # (Auto) 7.91 H (1.40-6.50) K/uL Lymph # (Auto) 1.01 L (1.20-3.40) K/uL [place] # (Auto) 0.83 H (0.11-0.59) K/uL Eos # (Auto) 2.42 H (0.00-0.50) K/uL Activ Coag Time Kaolin (94-140) SECONDS Chloride 109 H (98-107) mmol/L Carbon Dioxide (21-32) mmol/L POC Total CO2 (24-31) mmol/L Anion Gap (3-11) POC BUN (7-18) mg/dl POC Creatinine (0.6-1.3) mg/dl Glucose 132 H (70-99(Fasting)) mg/dl POC Glucose 110 H (70-99) mg/dl POC Glucose (other) (70-99) mg/dl POC Ioniz Calcium Dom (1.12-1.32) mmol/l Troponin I High Sens 177801.1 H* D (0-20) pg/ml Cholesterol 203 H (0-200) mg/dl 10/19/23 Range/Units 10:14 WBC (4.8-10.8) K/ul RBC (4.70-6.10) M/uL Hgb (14.0-18.0) g/dl POC Hgb (14.0-18.0) g/dl Hct (42.0-52.0) % POC Hct (42-52) % MPV (9.4-12.4) fL Neut # (Auto) (1.40-6.50) K/uL Lymph # (Auto) (1.20-3.40) K/uL [place] # (Auto) (0.11-0.59) K/uL Eos # (Auto) (0.00-0.50) K/uL Activ Coag Time Kaolin (94-140) SECONDS Chloride (98-107) mmol/L Carbon Dioxide (21-32) mmol/L POC Total CO2 (24-31) mmol/L Anion Gap (3-11) POC BUN (7-18) mg/dl POC Creatinine (0.6-1.3) mg/dl Glucose (70-99(Fasting)) mg/dl POC Glucose (70-99) mg/dl POC Glucose (other) (70-99) mg/dl POC Ioniz Calcium Dom (1.12-1.32) mmol/l Troponin I High Sens 55916.6 H* D (0-20) pg/ml Cholesterol (0-200) mg/dl
[2023-10-19] MEDS: METOPROLOL SUCC 25MG EXT REL TAB PO SCH (20:33)
[2023-10-20 05:13] LABS: BUN Creatinine Ratio 11.7 (10-20); Calcium 8.7 mg/dl (8.6-10.3); Creatinine Clr Calc Pharmacy 50.3 ml/min; Est GFR (African American) 59.3 ml/min; Est GFR (Non-African American) 51.2 ml/min; Magnesium 1.9 mg/dl (1.7-2.4); Phosphorus 2.6 mg/dl (2.5-4.9); Potassium 3.5 mmol/L (3.5-5.1)
[2023-10-20 05:23] LABS: Basophils # (auto) 0.04 K/uL (0.00-0.20); Basophils % (auto) 0.3 %; Eosinophils # (auto) 0.11 K/uL (0.00-0.50); Eosinophils % (auto) 0.9 %; Hematocrit (blood only) 37.1 % (42.0-52.0); Hemoglobin 12.8 g/dl (14.0-18.0); Immature Granulocytes # (auto) 0.03 K/uL (0.01-0.20); Immature Granulocytes % (auto) 0.2 %; Lymphocytes # (auto) 2.87 K/uL (1.20-3.40); Lymphocytes % (auto) 23.6 %; Mean Corpuscular Hemoglobin 31.7 pg (25.0-34.0); Mean Corpuscular Hgb Conc 34.5 g/dL (32.0-36.0); Mean Corpuscular Volume 91.8 fL (80.0-100.0); Mean Platelet Volume 9.4 fL (9.4-12.4); Monocytes # (auto) 1.43 K/uL (0.11-0.59); Monocytes % (auto) 11.8 %; Neutrophils # (auto) 7.69 K/uL (1.40-6.50); Neutrophils % (auto) 63.2 %; Platelet Count 226 K/uL (130-400); RDW Coefficient of Variation 13.5 % (11.5-14.5); RDW Standard Deviation 45.4 fL (36.4-46.3); Red Blood Count 4.04 M/uL (4.70-6.10); White Blood Count 12.17 K/ul (4.8-10.8)
[2023-10-20] MEDS: POTASSIUM CHLORIDE CRTAB 20 MEQ TABCR PO SCH (05:49)
[2023-10-20] MEDS: MAGNESIUM OXIDE 400 MG TAB PO SCH (05:49)
--- NOTE | 2023-10-20 07:30 | Electrocardiogram Report ---
Test Reason : Blood Pressure : / mmHG Vent. Rate : 066 BPM Atrial Rate : 066 BPM P-R Int : 160 ms QRS Dur : 086 ms QT Int : 494 ms P-R-T Axes : 047 038 104 degrees QTc Int : 517 ms Normal sinus rhythm Marked T wave abnormality consider anterolateral ischemia vs evolving anterior NC Prolonged QT Abnormal ECG When compared with ECG of 19-OCT-2023 06:53, T wave inversion now evident in Anterolateral leads QT has lengthened Confirmed by Jerome Hussein ([id number] on 10/20/2023 7:29:59 AM Referred By: REFERRED SELF Confirmed By:Gabriel Hussein
--- NOTE | 2023-10-20 13:10 | Urology Consultation ---
Date of Consultation October 20, 2023 Assessment & Plan (1) Hematuria: (2) Urinary retention: (3) BPH (benign prostatic hyperplasia): Plan 72yo/M with a hx of BPH admitted with acute PR now status post cardiac cath and stent placement. Patient developed urinary retention requiring Malone catheter placement which he then developed hematuria following catheter placement. Urology consulted for urinary retention and hematuria. Hematuria likely secondary to catheter placement in the setting of BPH and anticoagulation. Malone intact and draining appropriately- urine is pink tinged. Continue to monitor. OK to hand irrigate as needed. Anticoagulation per primary team/cardiology. Urology can manage hematuria as needed. Patient reports he has been managing BPH with a combination of tamsulosin 0.8mg daily and sildenafil 50mg daily (home medication list shows tadalafil 2.5mg daily?). Tamsulosin has been on hold. We discussed catheter management and voiding trial. He is eager to have the catheter removed, but is hesitant to do so while off his medications which is a valid concern. Will defer to cardiology/primary team regarding restarting his tamsulosin. Ok for voiding trial from standpoint when medically appropriate per primary team/cardiology. We did discuss that if he is not able to void in 6 hours he will need either CIC or Malone catheter replacement. Can also consider addition of Finasteride for max medication therapy for the prostate. He also reports an elevated PSA of 11. I do not have those results available for review. We discussed potential implications of elevated PSA including infection, BPH, or an underlying prostate cancer. Discussed that we would not repeat a PSA at this point given recent catheterization/clinical picture. Will plan for follow-up of elevated PSA at his outpatient visit next month. Urology will follow peripherally. Please call with any questions, concerns, or changes in patient's status. History of Present Illness Attending Physician: Reba Boyd MD History of Present Illness 72-year-old male who presented due to chest pain and found to have ST elevated PR and is status post emergent cardiac cath and stent placement on 10/18/23. Urology was consulted for urinary retention and hematuria. Patient has a hx of BPH. Per his report, he is on tamsulosin 0.8 mg daily and sildenafil 50 mg daily at home which has been effective in managing his symptoms for approximately 5 years. Patient's urinary medications were placed on hold at admission and he patient developed urinary retention requiring Malone catheter placement on 10/18. He then developed hematuria following catheter placement. Of note, patient was scheduled for a new outpatient visit for elevated PSA. He reports a recent PSA of 11. He denies hx of prostate cancer. Denies pertinent family hx. Patient was seen at bedside this AM in the ICU. He is awake and resting comfortably in bed. No acute distress. Malone draining pink-tinged urine without clot. Chart review (10/20/23): Afebrile and hemodynamically stable. Labs -WBC 12.17, hemoglobin 12.8, creatinine 1.37. Allergies Allergy/AdvReac Type Severity Reaction Status Date / Time acetaminophen Allergy Unknown HIVES Verified 04/21/09 03:41 Home Medications Medication Instructions Recorded Confirmed Type tamsulosin 0.4 mg capsule 0.4 mg PO DAILY 10/18/23 10/18/23 History aspirin 81 mg tablet,delayed 81 mg PO QAM #30 tabs 10/20/23 Rx release atorvastatin 40 mg tablet 40 mg PO QAM #90 tabs 10/20/23 Rx clopidogrel 75 mg tablet 75 mg PO QAM #90 tabs 10/20/23 Rx metoprolol succinate 25 mg 12.5 mg (1/2 x 25 mg) PO BID #90 10/20/23 Rx tablet,extended release 24 hr tabs sacubitril 24 mg-valsartan 26 mg 0.5 tab PO BID #90 tabs 10/20/23 Rx tablet (Entresto) sildenafil 100 mg tablet 50 mg 10/20/23 History Patient History Medical History Elevated PSA Family History Other Family history non-contributory Social History Smoking Status: Never smoker Second Hand Exposure: No; Do You Dip or Chew Tobacco: No; Hx Alcohol Use: Yes Alcohol type: wine Hx Substance Use: No Preferred Language: Venezuelan Communication Ability: Effective [employer] Cutter Required: No Beliefs That Will Affect Care: None Current Living Situation: Spouse Feels Safe at Home: Yes Assistive Devices: None Review of Systems Review of Systems: All systems reviewed & are unremarkable except as noted in HPI & below Physical Exam Constitutional: well developed and well nourished; no acute distress Respiratory: normal respiratory effort; no respiratory distress and no labored breathing Musculoskeletal: Head/Neck/Chest: normocephalic Skin: No visible rashes or lesions to exposed skin areas Neurologic: moves all extremities and awake Psychiatric: A+Ox3, euthymic affect Genitourinary: Malone intact Results & Data Vital Signs (Past 12 Hours) Vital Signs Temp Pulse Pulse Resp BP BP Pulse Ox 10/20/23 09:00 73 20 91 10/20/23 09:00 143/74 H 10/20/23 08:09 27 H 92 10/20/23 07:56 80 10/20/23 07:47 36.7 C 10/20/23 07:03 18 93 10/20/23 07:00 65 137/77 10/20/23 07:00 66 137/77 10/20/23 06:54 20 93 10/20/23 06:15 63 20 95 10/20/23 06:00 131/78 10/20/23 06:00 131/78 10/20/23 05:36 58 L 18 95 10/20/23 05:00 63 22 95 10/20/23 05:00 128/80 10/20/23 05:00 128/80 10/20/23 05:00 128/80 10/20/23 04:29 37.6 C 10/20/23 04:21 62 8 L 95 10/20/23 03:06 62 9 L 95 10/20/23 02:00 123/72 10/20/23 02:00 123/72 10/20/23 02:00 64 25 H 95 10/20/23 01:09 63 16 95 10/20/23 01:00 127/74 10/20/23 00:48 63 25 H 95 10/20/23 00:15 61 20 96 10/20/23 00:00 130/78 10/20/23 00:00 68 10/20/23 00:00 37.6 C 68 16 130/78 94 10/19/23 23:57 66 24 96 10/19/23 23:06 66 25 H 95 10/19/23 23:00 137/80 O2 Del Method O2 Flow Rate 10/20/23 09:00 Room Air 10/20/23 09:00 08/05/24 08:09 10/20/23 07:56 10/20/23 07:47 10/20/23 07:03 10/20/23 07:00 10/20/23 07:00 10/20/23 06:54 10/20/23 06:15 10/20/23 06:00 10/20/23 06:00 10/20/23 05:36 10/20/23 05:00 10/20/23 05:00 10/20/23 05:00 10/20/23 05:00 10/20/23 04:29 10/20/23 04:21 10/20/23 03:06 10/20/23 02:00 10/20/23 02:00 10/20/23 02:00 10/20/23 01:09 10/20/23 01:00 10/20/23 00:48 10/20/23 00:15 10/20/23 00:00 10/20/23 00:00 10/20/23 00:00 Nasal Cannula 1 10/19/23 23:57 10/19/23 23:06 10/19/23 23:00 PG Care Time/CCT Total # of Minutes Spent Total Time Spent with Patient: Total time spent is greater than 50% in coordination of care (as documented) at patient's floor/unit and/or counseling patient: Coding Level of Care Code 01271 INT INP/OBS CARE 2/55MIN Diagnoses Hematuria R31.9 Urinary retention R33.9 BPH (benign prostatic hyperplasia) N40.0
[2023-10-20] MEDS: TAMSULOSIN HCL 0.4 MG CAP PO ONE (14:06)
[2023-10-20] MEDS: SILDENAFIL CITRATE 20 MG TABLET PO ONE ×2 (14:25→15:10)
--- NOTE | 2023-10-20 16:56 | Electrocardiogram Report ---
Test Reason : Blood Pressure : */* mmHG Vent. Rate : 65 BPM Atrial Rate : 65 BPM P-R Int : 150 ms QRS Dur : 86 ms QT Int : 470 ms P-R-T Axes : 47 29 103 degrees QTcB Int : 488 ms Normal sinus rhythm Anteroseptal infarct (cited on or before 20-OCT-2023) T wave abnormality, consider lateral ischemia Abnormal ECG When compared with ECG of 19-OCT-2023 20:07, No significant change was found Confirmed by Jerome Hussein ([id number]) on 10/20/2023 4:56:38 PM Referred By: REFERRED SELF Confirmed By: Jerome Hussein
[2023-10-20] MEDS ORDERED: POTASSIUM CHLORIDE 10 MEQ TABCR PO STA (17:16)
--- NOTE | 2023-10-20 17:18 | Cardiology Progress Note ---
Date of Service October 20, 2023 Assessment & Plan (1) STEMI (ST elevation myocardial infarction): (2) Hyperlipidemia: (3) Urinary retention: Plan s/p anterior STEMI for which patient underwent emergent PCI of proximal LAD with a drug eluting stent. LVEF on 10/18 was 40-45%(mildly reduced) with distal LAD territory wall motion abnormality . Continue ASA 81 mg daily (lifelong therapy) , clopidogrel 75 mg daily (for at least 1 year pending clinical reassessment) Change metoprolol succinate to 25 mg daily on 10/20 Continue Entresto 26/ 24 mg , 1/2 tablet BID at discharge. If not affordable , consider transition to losartan 25 mg daily. Doses of metoprolol and Entresto are low, given low BP episode earlier this stay. Continue atorvastatin 40 mg daily. Urology input noted and appreciated. Malone removed. Voiding trial underway. Patient and spouse tell me , patient is going to follow up with Dr Daigle next week as an outpatient. Patient reports Dr Daigle met with him in person and discussed medication plan with patient earlier today. Patient pending discharge if passes voiding trial. Admission and Anticipated Discharge Date Admission Date: October 18, 2023 Subjective Patient seen in cardiology follow up. He is sitting in the bedside chair. Denies chest pain or shortness of breath. Malone catheter removed and has urinated 150 ml of blood tinged urine with voiding trial thus far. Telemetry reveals sinus tachycardia at 111 bpm. Review of Systems Review of Systems: All systems reviewed & are unremarkable except as noted in HPI & below Physical Exam Constitutional: WD/WN, vitals as above Eyes: PERRL, conjunctivae normal, anicteric sclerae Respiratory: normal respiratory effort, lungs clear to auscultation Cardiovascular: RRR, no murmur, no edema Gastrointestinal (Abdomen): normal bowel sounds, soft, nontender, no hepatosplenomegaly Neurologic: PERRL, EOMI, accommodation nl, no face palsy, no dysarthria Results & Data Vital Signs (Past 12 Hours) Vital Signs Temp Pulse Pulse Resp BP BP Pulse Ox 10/20/23 16:12 36.7 C 95 H 16 127/78 97 10/20/23 12:46 36.7 C 10/20/23 12:12 90 21 97 10/20/23 12:12 109/73 10/20/23 11:54 92 H 19 95 10/20/23 09:00 73 20 91 10/20/23 09:00 143/74 H 10/20/23 08:09 27 H 92 10/20/23 07:56 80 10/20/23 07:47 36.7 C 10/20/23 07:03 18 93 10/20/23 07:00 65 137/77 10/20/23 07:00 66 137/77 10/20/23 06:54 20 93 10/20/23 06:15 63 20 95 10/20/23 06:00 131/78 10/20/23 06:00 131/78 10/20/23 05:36 58 L 18 95 O2 Del Method 10/20/23 16:12 Room Air 10/20/23 12:46 10/20/23 12:12 10/20/23 12:12 10/20/23 11:54 10/20/23 09:00 Room Air 10/20/23 09:00 10/20/23 08:09 10/20/23 07:56 10/20/23 07:47 10/20/23 07:03 10/20/23 07:00 10/20/23 07:00 10/20/23 06:54 10/20/23 06:15 10/20/23 06:00 10/20/23 06:00 10/20/23 05:36 Laboratory Results Cardiac Enzymes 10/19/23 Range/Units 16:29 Troponin I High Sens 27593.7 H* D (0-20) pg/ml CBC 10/20/23 Range/Units 04:30 WBC 12.17 H (4.8-10.8) K/ul RBC 4.04 L (4.70-6.10) M/uL Hgb 12.8 L (14.0-18.0) g/dl Hct 37.1 L (42.0-52.0) % Plt Count 226 (130-400) K/uL Neut # (Auto) 7.69 H (1.40-6.50) K/uL Lymph # (Auto) 2.87 (1.20-3.40) K/uL [place] # (Auto) 1.43 H (0.11-0.59) K/uL Eos # (Auto) 0.11 (0.00-0.50) K/uL Baso # (Auto) 0.04 (0.00-0.20) K/uL Comprehensive Metabolic Panel 10/20/23 Range/Units 04:30 Sodium 140 (136-145) mmol/L Potassium 3.5 (3.5-5.1) mmol/L Chloride 108 H (98-107) mmol/L Carbon Dioxide 27 (21-32) mmol/L BUN 16 (6-23) mg/dl Creatinine 1.37 (0.6-1.4) mg/dl Glucose 104 H (70-99(Fasting)) mg/dl Calcium 8.7 (8.6-10.3) mg/dl Intake and Output 10/20/23 10/20/23 10/20/23 06:59 14:59 22:59 Intake Total 380 / 380 Output Total 315 / 2115 450 / 450 Balance -315 / -1015.00 -70 / -70 Intake: Oral 380 / 380 Output: Urine Amount (Catheter) 315 / 2115 450 / 450 Malone/Indwelling 315 / 2115 450 / 450 Other: Weight 79.5 kg Weight Measurement Method Standing Scale Diagnostic Findings EKG performed today 10/20/23: reveals sinus rhythm at 65 bpm. T wave inversion in precordial leads, consistent with evaluation of anterior CO.
--- NOTE | 2023-10-20 17:34 | Discharge Summary ---
Date of Service October 20, 2023 Admission HPI Per Admitting Provider 72-year-old male with past medical history significant for BPH and elevated PSAs supposed to see urology coming Friday comes because of chest pain and found to have ST elevated DC s/p emergent cardiac cath and drug-eluting stent to LAD currently chest pain-free but had a lot of nausea. Patient states from 3:10 PM to 4:10 PM he was on a treadmill. After that he had a snack and took shower. Around 5 PM started noticed chest pain middle of the chest. No radiation. At that time no nausea. No dizziness. Initially thought heartburn but the pain was very severe he told his he wanted to go to hospital as he walked to the car told his to call ambulance. While waiting for ambulance he was having some sweating. In ER patient was called heart alert and s/p cardiac cath. Currently chest pain resolved. Having a lot of nausea , states from the medications he got in the hospital Denies any headache. Vision is okay. No cough. No recent fevers. No shortness of breath. No abdominal pain. Normal bowel and bladder movements. Patient states he exercises 4 times a week. Did not get any chest pain before. No smoking history. No family history of heart disease. Past med history. As mentioned above Past surgical history. Left inguinal hernia repair. Excision of tongue lesion. Colonoscopy. Tonsillectomy. Social history. No smoking. Drinks glass of wine daily.. No drug use. Family history. Patient denies any significant family history. Admission Exam Per Admitting Provider General- Not in distress. Head- atraumatic Eyes- EOMI ENT- oropharynx clear Neck- supple, no JVD. Lungs- clear to auscultation no wheezing or crackles Heart- regular rate and rhythm; no murmur, no gallop. Abdomen- normal bowel sounds, soft, nontender, no distension Extremities- no pretibial edema, no erythema seen. Right wrist cath site no erythema or drainage seen Neuro- alert, oriented EOMI; no facial palsy; no dysarthria; moves extremities Principal Diagnosis Acute STEMI S/p PCI Hypertension BPH Hematuria Discharge Exam Constitutional + well hydrated; no acute distress Eyes PERRL, conjunctivae normal, anicteric sclerae ENMT external ear and nose normal, oropharynx normal Respiratory normal respiratory effort, lungs clear to auscultation Cardiovascular Rate/Rhythm: regular rate and regular rhythm Gastrointestinal (Abdomen) normal bowel sounds, soft, nontender, no hepatosplenomegaly Musculoskeletal no cyanosis or clubbing, extremities motor strength 5/5 Neurologic PERRL, EOMI, accommodation nl, no face palsy, no dysarthria Psychiatric A+Ox3, euthymic affect Discharge Data Allergies Allergy/AdvReac Type Severity Reaction Status Date / Time acetaminophen Allergy Unknown HIVES Verified 04/21/09 03:41 Consultations 10/18/23 21:11 Consult Carding Supervisor Routine 10/19/23 08:00 Consult Cardiology Routine 10/20/23 08:19 Consult Urology Routine 10/20/23 10:38 Consult Cardiac Rehabilitation Routine Procedures Performed Operation Date: 10/18/23 18:30 Actual Procedures p Aspiration/PCI w/MICHAEL for Stemi - Uzair Daigle MD, PhD p Cineradiography w/Routine Exam - Uzair Daigle MD, PhD Ordered Studies 10/18/23 18:29 CL Cath Imgs for PACS use only Stat Hospital Course (1) STEMI (ST elevation myocardial infarction): 72-year-old male with past medical history significant for BPH and elevated PSAs supposed to see urology coming Friday comes because of chest pain and found to have ST elevated DC s/p emergent cardiac cath and drug-eluting stent to LAD currently chest pain-free but had a lot of nausea. Patient states from 3:10 PM to 4:10 PM he was on a treadmill. After that he had a snack and took shower. A round 5 PM started noticed chest pain middle of the chest. No radiation. At that time no nausea. No dizziness. Initially thought heartburn but the pain was very severe he told his he wanted to go to hospital as he walked to the car told his to call ambulance. While waiting for ambulance he was having some sweating. In ER patient was called heart alert and s/p cardiac cath. Currently chest pain resolved. Having a lot of nausea , states from the medications he got in the hospital Denies any headache. Vision is okay. No cough. No recent fevers. No shortness of breath. No abdominal pain. Normal bowel and bladder movements. Patient states he exercises 4 times a week. Did not get any chest pain before. No smoking history. No family history of heart disease. Acute ST elevated DC S/p cardiac cath and drug-eluting stent to LAD and PTCA/stent strut dilatation of the jailed ostium of the large first diagonal. Continue ASA and plavix Started on metoprolol succinate, Entresto and atorvastatin TTE noted mild conc LVH, severe hypokinesis of mid and apical septum and apical inf ant wall, EF 40-45%, GI DD. mild AV sclerosis without significant stenosis Patient is to follow up with Dr Daigle outpatient BPH Urinary retention Hematuria resolving Urology evaluation noted Fuller removed. Voided Patient plans to follow up with his Urologist and primary doctor Total Time Total Time Spent Total Time Spent (In Minutes): 40 Total Time Includes: Examination of the Patient, Discharge Planning, Medication Reconciliation and Communication With Other Providers Discharge Plan Discharge Items Patient Disposition: Home - Self-Care Reason For Visit: STEMI Discharge Diagnosis: Acute STEMI S/p PCI Hypertension BPH Hematuria Activity: Per Instructions section Non-emergency contact: Mill Oiler Call non-emergency contact if: you have any medication questions, your symptoms worsen, your pain is not controlled, you have a fever, your wound has increased redness and your wound has increased drainage Follow-up/Referrals: Uzair Daigle MD, PhD [Physician] - 10/27/23 9:00 am PCP,NO [Physician] - Diet: Heart Healthy and Low Sodium (2gm) Addtl Attending Provider Instructions: Mr Amin You came into the hospital with chest pain and EKG showed a heart attack. You had cardiac catheterization with stent placement. You also had urinary retention and blood urine after fuller placement. You are being discharged on new medications as detailed on the medication list. Please continue aspirin and plavix (clopidogrel) Please ensure follow up with your Primary Doctor and Mill Oiler Dr Daigle. Please follow up with Urology for management of your BPH. It was a pleasure taking care of you. Addtl Commercial Construction Superintendent Provider Instructions: ACTIVITY RECOMMENDATIONS: It is common to feel weak and fatigue for a few days. * Do not drive or operate any motorized equipment for the next three days. * Limit stair usage (2 or 3 trips a day only) for the next three days. * Do not lift anything heavier than 10 pounds for the next three days. * Do not engage in vigorous exercise or any sports for the next five days. * You may shower the day after your procedure, but do not immerse the area for three days. Cleanse the site gently with soap and water. SPECIAL CARE INSTRUCTIONS: * You may replace the pressure dressing or band-aid the morning after the procedure. * After your procedure, it is normal to have a small bruise or small lump at the site. Examine your site daily for any change in the bruise or lump, redness, swelling, drainage or numbness. Notify your doctor if any change. BLEEDING: * If there is a small amount of bleeding at the site, lie down and apply firm pressure with a clean cloth for ten minutes. When the bleeding stops, lie quietly keeping the procedure limb straight for six hours. Notify your doctor as soon as possible. * If the bleeding does not stop after ten minutes or if there is a large amount of bleeding or spurting, call 911 immediately. Continue to lie down and hold firm pressure until help arrives. SKIN IRRITATION: * You may experience some redness and/or swelling in the area where radiation was administered. If any skin irritation occurs, please contact your family physician. FOLLOW UP VISIT: Keep any scheduled doctor appointments. Pending Studies at Discharge: No Stand-Alone Forms: My [facility], Smoking Cessation Medications and DC Order Prescriptions: New atorvastatin 40 mg Tablet 40 mg PO QAM Qty: 90 3RF clopidogrel 75 mg Tablet 75 mg PO QAM Qty: 90 3RF metoprolol succinate 25 mg Tablet Extended Release 24 Hr 12.5 mg PO BID Qty: 90 3RF Entresto 24-26 mg Tablet 0.5 tab PO BID Qty: 90 3RF aspirin 81 mg Tablet,Delayed Release (Dr/Ec) 81 mg PO QAM Qty: 30 3RF Continued tamsulosin 0.4 mg capsule 0.4 mg PO DAILY sildenafil 100 mg tablet 50 mg Discharge Orders: Discharge Order (Routine); Ordered 10/20/23 Ordered By: Reba Boyd Admission Data Admit Date/Time: 10/18/23 21:11 Attending Provider: Reba Boyd I. Admit Provider: David Varghese Primary Care Provider: Daria Mcdaniel Other Providers: Enoch Farfan; Tesfaye Tate; Irvin Coffey
[2023-10-20] MEDS ORDERED: TAMSULOSIN HCL 0.4 MG CAP PO SCH (21:00)
[2023-10-21] MEDS ORDERED: METOPROLOL SUCC 25MG EXT REL TAB PO SCH (09:00)
== END 2023-10-20 18:20 | disposition home or self-care (01) | DRG 322 ==
LOC: ED 18:08 → OR 18:42 → 1E 21:11

== ENCOUNTER 2023-10-25 20:13 | Observation (INO) ==
--- NOTE | 2023-10-25 20:30 | Emergency Department Note ---
Impression & Plan Chest pain Admission ED Provider Note HPI: History obtained from patient and patient's at the bedside. The patient is a 72-year-old gentleman with history of coronary artery disease status post STEMI with stent placement on 10/17 to the LAD, presents to the emergency department today with a chief complaint of a transient episode of chest pressure. Patient states earlier this evening just prior to arrival to the ER he was in his normal state of health when he stood up to empty his Malone catheter bag and began to feel an acute sensation of chest pressure that was substernal in nature. Patient states this did feel similar to the STEMI that he had 1 week ago but the severity of the discomfort was "much less". On arrival here to the ED the patient is mildly hypertensive but otherwise hemodynamically stable and saturating well on room air. He does state that he still has some very mild left-sided chest discomfort. Patient also notes that he has had some continued blood-tinged drainage from his Malone catheter bag. On arrival here to the ER the patient otherwise appears to be in no acute distress, he does intermittently get emotional in the room during my interview. ROS: - Per HPI Differential Diagnosis: Acute coronary syndrome/STEMI, anxiety attack, pericarditis, pericardial effusion, aortic dissection, pulmonary embolism, amongst other potential pathologies. *Outpatient medications and allergy history reviewed. PE: General: Alert HEENT: Normocephalic, trachea midline Eyes: Extraocular eye movement is intact, no scleral erythema Pulmonary: Clear to auscultation bilaterally, no wheezing Cardio: Regular rate and rhythm GI: Abdomen is soft to palpation : No suprapubic tenderness MSK: No evidence of trauma or malformation of the extremities, no edema Skin: No evidence of rash Neuro: Alert, no focal deficits Psychiatric: Anxious appearing, cooperative INDEPENDENT INTERPRETATIONS: segment block layer: (As interpreted by myself): - An order was placed for continuous cardiac monitoring - Patient was noted to be in sinus rhythm with a rate of 80 EKG: (As interpreted by myself): Rate: 71 Rhythm: Normal sinus rhythm Intervals: Within normal limits ST changes: No ST elevation Time: 2017 Chest x-ray: (As interpreted by myself): No acute disease Interventions provided in ED: -IV Ativan Medical Decision Making: Patient appears well on arrival, he was somewhat anxious appearing and intermittently tearful and therefore was given a dose of IV Ativan with good improvement. IV was established and lab work obtained, EKG per my review does not show any evidence of any acute ischemic changes. Lab work shows no leukocytosis, hemoglobin is stable at 12.4, platelet count is normal, CMP does not show any evidence of any critical findings, troponin was obtained and is elevated at 629.9 in comparison to approximately 60,000 on 10/18. On my reassessment the patient is resting more comfortably in bed. He denies any current chest pain. Given his recent procedure for stent placement with chest pain this evening I do feel that he will require admission to the hospital. I discussed this with the patient and his at the bedside and they are in agreement. The patient requested admission to the [facility] hospitalist service and therefore I did discuss the patient's presentation with Dr. Duque. He is in agreement to admit the patient and the patient was placed for admission in stable condition. At this time given lack of any ongoing chest pain and downtrending troponin level in comparison to previous, I do not feel heparin drip is indicated prior to admission pending second troponin level. Will defer further care to the hospitalist service at this time of admission. Consultants/Discussions held with other healthcare providers: -Hospitalist, Dr. Duque Disposition discussion held by myself with: -Patient and patient's at the bedside Diagnosis: 1. Chest pain, acute 2. History of coronary artery disease status post recent stent placement 3. Elevated high-sensitivity troponin level Disposition: Admission Ryan Weiss DO Emergency Medicine Past Med/Surg History Problem List (Updated 10/25/23 @ 22:16 by Ryan Weiss DO) Chest pain (Acute) Nausea (Acute) Acute urinary retention (Acute) BPH (benign prostatic hyperplasia) (Acute) Hematuria Urinary retention Hyperlipidemia Acute vomiting Electrolyte disturbance Hypotensive episode STEMI (ST elevation myocardial infarction) (Acute) Medical History Elevated PSA Family History Other Family history non-contributory Social History Smoking Status: Never smoker Second Hand Exposure: No; Do You Dip or Chew Tobacco: No; Hx Alcohol Use: Yes Alcohol type: wine Hx Substance Use: No Preferred Language: Irish Communication Ability: Effective Painter Barrel Required: No Beliefs That Will Affect Care: None Current Living Situation: Spouse Feels Safe at Home: Yes Assistive Devices: None Allergies Allergies Allergy/AdvReac Type Severity Reaction Status Date / Time acetaminophen Allergy Intermediate HIVES Verified 10/25/23 21:10 Home Meds Home Medications Medication Instructions Recorded Confirmed tamsulosin 0.4 mg capsule 0.4 mg PO BID 10/18/23 10/25/23 sildenafil 100 mg tablet 50 mg PO HS 10/20/23 10/25/23 Previous Rx's Medication Instructions Recorded aspirin 81 mg tablet,delayed 81 mg PO QAM #30 tabs 10/20/23 release atorvastatin 40 mg tablet 40 mg PO QAM #90 tabs 10/20/23 clopidogrel 75 mg tablet 75 mg PO QAM #90 tabs 10/20/23 metoprolol succinate 25 mg 12.5 mg (1/2 x 25 mg) PO BID #90 10/20/23 tablet,extended release 24 hr tabs sacubitril 24 mg-valsartan 26 mg 0.5 tab PO BID #90 tabs 10/20/23 tablet (Entresto) ciprofloxacin HCl 500 mg tablet 500 mg PO Q12H #20 tabs 10/24/23 (Cipro) ondansetron 4 mg disintegrating 4 mg PO Q8H PRN nausea and 10/24/23 tablet vomiting 5 days #15 tabs Results & Data (ED) Vital Signs Vital Signs - 24 hr 10/25/23 20:15 10/25/23 20:15 10/25/23 20:15 Temperature 36.9 C Temperature Source Oral Pulse Rate 74 Respiratory Rate 16 Respiratory Effort / Characteristics Non-Labored Spontaneous Respiratory Depth Normal Respiratory Pattern Regular Blood Pressure 152/89 H Blood Pressure Mean 110 Pulse Oximetry 99 99 99 Oxygen Delivery Method Room Air Room Air Room Air Oxygen Flow Rate 0 Sepsis Recent Fever Within 48 Hours No Sepsis New/Unexplained Change in Mental Status N/A Sepsis Action Taken by Nursing No Action Required Oxygen Flow Rate - Titration 0 10/25/23 20:17 Temperature Temperature Source Pulse Rate 78 Respiratory Rate Respiratory Effort / Characteristics Respiratory Depth Respiratory Pattern Blood Pressure Blood Pressure Mean Pulse Oximetry Oxygen Delivery Method Oxygen Flow Rate Sepsis Recent Fever Within 48 Hours Sepsis New/Unexplained Change in Mental Status Sepsis Action Taken by Nursing Oxygen Flow Rate - Titration Laboratory Data 10/25/23 20:34 10/25/23 20:34 Lab Results 10/25/23 Range/Units 20:34 WBC 8.03 (4.8-10.8) K/ul RBC 3.93 L (4.70-6.10) M/uL Hgb 12.4 L (14.0-18.0) g/dl Hct 36.2 L (42.0-52.0) % MCV 92.1 (80.0-100.0) fL MCH 31.6 (25.0-34.0) pg MCHC 34.3 (32.0-36.0) g/dL RDW Std Deviation 45.7 (36.4-46.3) fL RDW Coeff of Gregoria 13.3 (11.5-14.5) % Plt Count 281 (130-400) K/uL MPV 9.4 (9.4-12.4) fL Immature Gran % (Auto) 0.5 % Neut % (Auto) 59.9 % Lymph % (Auto) 24.7 % Gosper % (Auto) 11.5 % Eos % (Auto) 3.0 % Baso % (Auto) 0.4 % Neut # (Auto) 4.82 (1.40-6.50) K/uL Lymph # (Auto) 1.98 (1.20-3.40) K/uL Gosper # (Auto) 0.92 H (0.11-0.59) K/uL Eos # (Auto) 0.24 (0.00-0.50) K/uL Baso # (Auto) 0.03 (0.00-0.20) K/uL Immature Gran # (Auto) 0.04 (0.01-0.20) K/uL PT 11.1 (9.0-12.0) Seconds INR 1.0 (0.9-1.1) Sodium 139 (136-145) mmol/L Potassium 3.5 (3.5-5.1) mmol/L Chloride 109 H (98-107) mmol/L Carbon Dioxide 20 L (21-32) mmol/L Anion Gap 10 (3-11) BUN 13 (6-23) mg/dl Creatinine 1.22 (0.6-1.4) mg/dl Est Cr Clr Drug Dosing 56.5 ml/min Est GFR ( Amer) 68.2 ml/min Est GFR (Non-Af Amer) 58.9 ml/min BUN/Creatinine Ratio 10.7 (10-20) Glucose 93 (70-99(Fasting)) mg/dl Calcium 8.7 (8.6-10.3) mg/dl Total Bilirubin 0.9 (0.2-1.0) mg/dl AST 27 (13-39) U/L ALT 23 (7-52) U/L Alkaline Phosphatase 48 (34-104) U/L Troponin I High Sens 629.9 H* (0-20) pg/ml Total Protein 6.6 (6.0-8.3) gm/dl Albumin 3.5 (3.4-5.0) gm/dl Globulin 3.1 (2.5-4.0) gm/dl Albumin/Globulin Ratio 1.1 (0.9-2) Lipase 144 H (11-82) U/L Administered Medications Discontinued Medications Lorazepam (Lorazepam 1 Mg/1 Ml Syr Ed Inj Use) 1 mg IV ONE STA Stop: 10/25/23 20:30 Last Admin: 10/25/23 20:34 Dose: 1 mg Documented By: NICO Discharge Plan Visit Data Chief Complaint: Chest Pain Stated Complaint: Chest Pain ED Provider: Ryan Weiss Discharge Problem: Chest pain Forms Stand Alone Forms: [facility] Prescriptions Prescriptions: No Action tamsulosin 0.4 mg capsule 0.4 mg PO BID atorvastatin 40 mg Tablet 40 mg PO QAM Qty: 90 3RF clopidogrel 75 mg Tablet 75 mg PO QAM Qty: 90 3RF metoprolol succinate 25 mg Tablet Extended Release 24 Hr 12.5 mg PO BID Qty: 90 3RF Entresto 24-26 mg Tablet 0.5 tab PO BID Qty: 90 3RF aspirin 81 mg Tablet,Delayed Release (Dr/Ec) 81 mg PO QAM Qty: 30 3RF sildenafil 100 mg tablet 50 mg PO HS ciprofloxacin HCl [Cipro] 500 mg tablet 500 mg PO Q12H Qty: 20 0RF Rx Instructions: PER PT "WAS TO START 10/25/23 WITH PM DOSE". ondansetron 4 mg tablet,disintegrating 4 mg PO Q8H PRN (Reason: nausea and vomiting) 5 Days Qty: 15 0RF Referrals Referrals: Daria Mcdaniel MD [Primary Care Provider] - Discharge Problem: Chest pain Qualifiers: Chest pain type: unspecified Qualified Code(s): R07.9 - Chest pain, unspecified
[2023-10-25] MEDS: LORazepam 1 MG/1 ML SYR ED Inj Use IV STA (20:34)
[2023-10-25 21:06] LABS: Albumin Globulin Ratio 1.1 (0.9-2); Albumin Level 3.5 gm/dl (3.4-5.0); BUN Creatinine Ratio 10.7 (10-20); Bilirubin,Total 0.9 mg/dl (0.2-1.0); Calcium 8.7 mg/dl (8.6-10.3); Creatinine Clr Calc Pharmacy 56.5 ml/min; Est GFR (African American) 68.2 ml/min; Est GFR (Non-African American) 58.9 ml/min; Globulin 3.1 gm/dl (2.5-4.0); Potassium 3.5 mmol/L (3.5-5.1); Total Protein 6.6 gm/dl (6.0-8.3)
[2023-10-25 21:22] LABS: Basophils # (auto) 0.03 K/uL (0.00-0.20); Basophils % (auto) 0.4 %; Eosinophils # (auto) 0.24 K/uL (0.00-0.50); Hematocrit (blood only) 36.2 % (42.0-52.0); Hemoglobin 12.4 g/dl (14.0-18.0); Immature Granulocytes # (auto) 0.04 K/uL (0.01-0.20); Immature Granulocytes % (auto) 0.5 %; Lymphocytes # (auto) 1.98 K/uL (1.20-3.40); Lymphocytes % (auto) 24.7 %; Mean Corpuscular Hemoglobin 31.6 pg (25.0-34.0); Mean Corpuscular Hgb Conc 34.3 g/dL (32.0-36.0); Mean Corpuscular Volume 92.1 fL (80.0-100.0); Mean Platelet Volume 9.4 fL (9.4-12.4); Monocytes # (auto) 0.92 K/uL (0.11-0.59); Monocytes % (auto) 11.5 %; Neutrophils # (auto) 4.82 K/uL (1.40-6.50); Neutrophils % (auto) 59.9 %; Platelet Count 281 K/uL (130-400); Prothrombin Time 11.1 Seconds (9.0-12.0); RDW Coefficient of Variation 13.3 % (11.5-14.5); RDW Standard Deviation 45.7 fL (36.4-46.3); Red Blood Count 3.93 M/uL (4.70-6.10); Troponin I High Sensitivity 629.9 pg/ml (0-20); White Blood Count 8.03 K/ul (4.8-10.8)
[2023-10-25 22:23] LABS: Magnesium 1.8 mg/dl (1.7-2.4)
--- NOTE | 2023-10-25 22:58 | History & Physical Report ---
Date of Service October 25, 2023 Assessment & Plan (1) Chest pain: (2) STEMI (ST elevation myocardial infarction): (3) Presence of drug coated stent in LAD coronary artery: (4) BPH w urinary obs/LUTS: (5) Indwelling Malone catheter present: (6) Hyperlipidemia: (7) Urinary tract infection: Plan Chest pain/status post LAD stent on 10-17/status post PTCA with stent D1 ostial 10-17/STEMI on 10-17-- The patient will be admitted to telemetry for serial cardiac enzymes, serial EKG's, cardiac rhythm monitoring The patient's symptoms were that of chest pressure upon standing, as he was standing to empty his Malone catheter bag, that since has resolved Troponin 629.9, with follow-up 612.4, then 551.4. Troponin previous admission upon discharge 60,267.7 EKG without acute changes compared to previous For potassium 3.5, gave Klor-Con 40 MEQ's p.o. For magnesium 1.8, gave magnesium sulfate 1 g IV Continue aspirin 81 mg every morning, clopidogrel 75 mg every morning, metoprolol succinate 12.5 mg p.o. twice daily and Entresto 0.5 mg p.o. twice daily Repeat CBC with differential, renal function panel and magnesium level in the a.m. Consult cardiology Patient and family [facility]. He has a follow-up appointment with Dr. Daigle 10/26 BPH with LUTS/urinary retention- Patient had to have a Malone placed during admission from 10/17-10/20/2023, but was able to undergo a successful voiding trial, and was discharged on tamsulosin and sildenafil without the Malone Patient returned to the emergency department 10/20 due to urine outflow issues, and had Malone catheter placed at that time Patient returned to the emergency department on 10/23 due to nausea, and was started on Cipro and Zofran for presumptive urinary tract infection, which will be continued, with microscopic growth present Patient was seen by urology during last hospitalization, and has a follow-up appointment next week Continue sildenafil 50 mg at bedtime, and tamsulosin 0.4 mg p.o. twice daily Consult urology Hyperlipidemia- Continuing atorvastatin History of Present Illness Chief Complaint: The patient presents to the emergency department with complaint of substernal chest pressure that began when he stood up from his chair to empty his Malone catheter bag, and because of recent NSTEMI and stent placement, he presented, with his , to the ED for assessment Primary Care Provider: Daria Mcdaniel MD The patient is a 72-year-old male with a past medical history including BPH with LUTS, now with chronic indwelling Malone catheter, hyperlipidemia, NSTEMI on 10/18/2023, hypertension, hyperlipidemia and anxiety. He was initially admitted on [facility] service from 10/17-10/20/2023, for a STEMI, and underwent cardiac catheterization on 10/[address] Daigle and had placement of a MICHAEL LAD 100% lesion, and D1 ostial jailed/thrombosed PTCA/stent strut dilatation. He reports that his chest discomfort had been doing well until yesterday, when he went from sitting to standing to change his Malone bag, and developed chest pressure, not nearly as intense as his NSTEMI, but concerning enough to come to the ED for assessment. Patient and family asked to be admitted to the [facility] hospitalist service, to be seen by [facility] cardiology while in hospital, and he has a follow-up appointment with Dr. Daigle 10/26 in the outpatient setting He also has a follow-up appointment with [facility] urology for later in the week Allergies Allergy/AdvReac Type Severity Reaction Status Date / Time acetaminophen Allergy Intermediate HIVES Verified 10/25/23 21:10 Home Medications Medication Instructions Recorded Confirmed Type tamsulosin 0.4 mg capsule 0.4 mg PO BID 10/18/23 10/25/23 History aspirin 81 mg tablet,delayed 81 mg PO QAM #30 tabs 10/20/23 10/25/23 Rx release atorvastatin 40 mg tablet 40 mg PO QAM #90 tabs 10/20/23 10/25/23 Rx clopidogrel 75 mg tablet 75 mg PO QAM #90 tabs 10/20/23 10/25/23 Rx metoprolol succinate 25 mg 12.5 mg (1/2 x 25 mg) PO BID #90 10/20/23 10/25/23 Rx tablet,extended release 24 hr tabs sacubitril 24 mg-valsartan 26 mg 0.5 tab PO BID #90 tabs 10/20/23 10/25/23 Rx tablet (Entresto) sildenafil 100 mg tablet 50 mg PO HS 10/20/23 10/25/23 History ciprofloxacin HCl 500 mg tablet 500 mg PO Q12H #20 tabs 10/24/23 10/25/23 Rx (Cipro) ondansetron 4 mg disintegrating 4 mg PO Q8H PRN nausea and 10/24/23 10/25/23 Rx tablet vomiting 5 days #15 tabs Past Med/Surg History Problem List (Updated 10/26/23 @ 06:04 by Rodrick Duque MD) Urinary tract infection Indwelling Malone catheter present BPH w urinary obs/LUTS Presence of drug coated stent in LAD coronary artery Chest pain (Acute) Nausea (Acute) Acute urinary retention (Acute) BPH (benign prostatic hyperplasia) (Acute) Hematuria Urinary retention Hyperlipidemia Acute vomiting Electrolyte disturbance Hypotensive episode STEMI (ST elevation myocardial infarction) (Acute) Medical History Elevated PSA Family History Other Family history non-contributory Social History Smoking Status: Never smoker Second Hand Exposure: No; Do You Dip or Chew Tobacco: No; Hx Alcohol Use: Yes Alcohol type: wine Hx Substance Use: No Preferred Language: Iraqi Communication Ability: Effective Senior Process Analyst Required: No Beliefs That Will Affect Care: None Current Living Situation: Spouse Feels Safe at Home: Yes Assistive Devices: Contacts Review of Systems Review of Systems: The patient denies palpitations, shortness of breath, dyspnea on exertion, cough, lower extremity swelling, sore throat, fevers, chills, sweats, weight change, fatigue, nausea, vomiting, diarrhea , constipation, abdominal pain, pelvic pain, blood in urine or stool, dysuria, urinary frequency or urgency, lightheadedness, dizziness, headache, loss of consciousness, rash, abnormal bruising or bleeding, imbalance, focal or generalized weakness, numbness or tingling in arms or legs, generalized arthralgias or myalgias, back or neck pain, or night sweats. The review of systems is otherwise negative other than for that already noted above, and at least 10 systems have been reviewed. Physical Exam Physical Exam: The patient is awake, alert and oriented 3, well developed and well nourished, normocephalic and atraumatic, lying in bed and in no acute distress. HEENT--PERRL, EOMI, mucous membranes and oropharynx normal Neck--supple. No JVD. No bruits. Thyroid normal, trachea midline, no adenopathy. Heart--normal S1 and S2. No murmurs, rubs or gallops. Lungs--clear bilaterally, no respiratory distress, no accessory muscle use. Abdomen--normal bowel sounds and soft. Mild to moderate suprapubic tenderness. Nondistended Extremities--No edema. Dermatologic--normal skin turgor, normal color, no abnormal lymph nodes, no rash . Neurologic--cranial nerves II through XII grossly intact. Rheumatologic--normal range of motion. Psychiatric--normal affect. Results & Data Results & Data Vital Signs (Past 12 Hours) Vital Signs Temp Pulse Resp BP Pulse Ox O2 Del Method O2 Flow Rate 10/25/23 20:17 78 10/25/23 20:15 99 Room Air 10/25/23 20:15 99 Room Air 0 10/25/23 20:15 36.9 C 74 16 152/89 H 99 Room Air Laboratory Results Laboratory Results WBC 7.90 K/ul (4.8-10.8) 10/26/23 05:33 RBC 3.62 M/uL (4.70-6.10) L 10/26/23 05:33 Hgb 11.5 g/dl (14.0-18.0) L 10/26/23 05:33 Hct 33.3 % (42.0-52.0) L 10/26/23 05:33 MCV 92.0 fL (80.0-100.0) 10/26/23 05:33 MCH 31.8 pg (25.0-34.0) 10/26/23 05:33 MCHC 34.5 g/dL (32.0-36.0) 10/26/23 05:33 RDW Std Deviation 45.0 fL (36.4-46.3) 10/26/23 05:33 RDW Coeff of Gregoria 13.3 % (11.5-14.5) 10/26/23 05:33 Plt Count 257 K/uL (130-400) 10/26/23 05:33 MPV 9.2 fL (9.4-12.4) L 10/26/23 05:33 Immature Gran % (Auto) 0.1 % 10/26/23 05:33 Neut % (Auto) 60.6 % 10/26/23 05:33 Lymph % (Auto) 20.9 % 10/26/23 05:33 Price % (Auto) 13.3 % 10/26/23 05:33 Eos % (Auto) 4.6 % 10/26/23 05:33 Baso % (Auto) 0.5 % 10/26/23 05:33 Neut # (Auto) 4.79 K/uL (1.40-6.50) 10/26/23 05:33 Lymph # (Auto) 1.65 K/uL (1.20-3.40) 10/26/23 05:33 Price # (Auto) 1.05 K/uL (0.11-0.59) H 10/26/23 05:33 Eos # (Auto) 0.36 K/uL (0.00-0.50) 10/26/23 05:33 Baso # (Auto) 0.04 K/uL (0.00-0.20) 10/26/23 05:33 Immature Gran # (Auto) 0.01 K/uL (0.01-0.20) 10/26/23 05:33 PT 11.1 Seconds (9.0-12.0) 10/25/23 20:34 INR 1.0 (0.9-1.1) 10/25/23 20:34 Sodium 139 mmol/L (136-145) 10/25/23 20:34 Potassium 3.5 mmol/L (3.5-5.1) 10/25/23 20:34 Chloride 109 mmol/L (98-107) H 10/25/23 20:34 Carbon Dioxide 20 mmol/L (21-32) L 10/25/23 20:34 Anion Gap 10 (3-11) 10/25/23 20:34 BUN 13 mg/dl (6-23) 10/25/23 20:34 Creatinine 1.22 mg/dl (0.6-1.4) 10/25/23 20:34 Est Cr Clr Drug Dosing 56.5 ml/min 10/25/23 20:34 Est GFR ( Amer) 68.2 ml/min 10/25/23 20:34 Est GFR (Non-Af Amer) 58.9 ml/min 10/25/23 20:34 BUN/Creatinine Ratio 10.7 (10-20) 10/25/23 20:34 Glucose 93 mg/dl (70-99(Fasting)) 10/25/23 20:34 Calcium 8.7 mg/dl (8.6-10.3) 10/25/23 20:34 Magnesium 1.8 mg/dl (1.7-2.4) 10/25/23 20:34 Total Bilirubin 0.9 mg/dl (0.2-1.0) 10/25/23 20:34 AST 27 U/L (13-39) 10/25/23 20:34 ALT 23 U/L (7-52) 10/25/23 20:34 Alkaline Phosphatase 48 U/L (34-104) 10/25/23 20:34 Troponin I High Sens 551.1 pg/ml (0-20) H* 10/26/23 00:39 Total Protein 6.6 gm/dl (6.0-8.3) 10/25/23 20:34 Albumin 3.5 gm/dl (3.4-5.0) 10/25/23 20:34 Globulin 3.1 gm/dl (2.5-4.0) 10/25/23 20:34 Albumin/Globulin Ratio 1.1 (0.9-2) 10/25/23 20:34 Lipase 144 U/L (11-82) H 10/25/23 20:34 Code Status & VTE Plan Code Status Full code VTE Prophylaxis Plan VTE Prophylaxis will be ordered: Yes PG Care Time/CCT Total # of Minutes Spent Total Time Spent with Patient: Total time spent is greater than 50% in coordination of care (as documented) at patient's floor/unit and/or counseling patient: Coding Level of Care Code 62576 INT INP/OBS CARE 3/75MIN Diagnoses Chest pain R07.9 Chest pain type: unspecified STEMI (ST elevation myocardial infarction) I21.3 Presence of drug coated stent in LAD coronary artery Z95.5 BPH w urinary obs/LUTS N40.1; N13.8 Indwelling Malone catheter present Z97.8 Hyperlipidemia E78.5 Urinary tract infection N39.0 (1) Chest pain Chest pain type: unspecified Qualified Code(s): R07.9 - Chest pain, unspecified
[2023-10-25] MEDS: TAMSULOSIN HCL 0.4 MG CAP PO ONE (23:11)
[2023-10-25] MEDS: CIPROFLOXACIN 500 MG TAB PO STA (23:11)
[2023-10-25] MEDS: MAGNESIUM SULFATE / D5W 1 GM/100 ML BAG IV ONE (23:11)
[2023-10-25] MEDS: POTASSIUM CHLORIDE CRTAB 20 MEQ TABCR PO STA (23:11)
[2023-10-25] MEDS: METOPROLOL TARTRATE 25 MG TAB PO STA (23:12)
[2023-10-25] MEDS: SILDENAFIL CITRATE 20 MG TABLET PO STA (23:12)
[2023-10-26] MEDS: VALSARTAN/SACUBITRIL 26/24MG TAB PO SCH ×2 (00:07→08:36)
[2023-10-26] MEDS ORDERED: ONDANSETRON 4 MG OD TAB PO PRN (00:24)
[2023-10-26] MEDS ORDERED: NITROGLYCERIN SL 0.4 MG/TAB TAB SL PRN (00:24)
[2023-10-26] MEDS: POTASSIUM CHLORIDE CRTAB 20 MEQ TABCR PO STA (00:28)
[2023-10-26] MEDS: MAGNESIUM OXIDE 400 MG TAB PO STA (00:28)
[2023-10-26 05:49] LABS: Basophils # (auto) 0.04 K/uL (0.00-0.20); Basophils % (auto) 0.5 %; Eosinophils # (auto) 0.36 K/uL (0.00-0.50); Eosinophils % (auto) 4.6 %; Hematocrit (blood only) 33.3 % (42.0-52.0); Hemoglobin 11.5 g/dl (14.0-18.0); Immature Granulocytes # (auto) 0.01 K/uL (0.01-0.20); Immature Granulocytes % (auto) 0.1 %; Lymphocytes # (auto) 1.65 K/uL (1.20-3.40); Lymphocytes % (auto) 20.9 %; Mean Corpuscular Hemoglobin 31.8 pg (25.0-34.0); Mean Corpuscular Hgb Conc 34.5 g/dL (32.0-36.0); Mean Platelet Volume 9.2 fL (9.4-12.4); Monocytes # (auto) 1.05 K/uL (0.11-0.59); Monocytes % (auto) 13.3 %; Neutrophils # (auto) 4.79 K/uL (1.40-6.50); Neutrophils % (auto) 60.6 %; Platelet Count 257 K/uL (130-400); RDW Coefficient of Variation 13.3 % (11.5-14.5); Red Blood Count 3.62 M/uL (4.70-6.10)
[2023-10-26 06:11] LABS: Albumin Level 3.2 gm/dl (3.4-5.0); BUN Creatinine Ratio 9.7 (10-20); Calcium 8.1 mg/dl (8.6-10.3); Est GFR (African American) 74.8 ml/min; Est GFR (Non-African American) 64.6 ml/min; Phosphorus 3.1 mg/dl (2.5-4.9); Potassium 4.1 mmol/L (3.5-5.1)
[2023-10-26 06:14] LABS: Troponin I High Sensitivity 488.3 pg/ml (0-20)
--- NOTE | 2023-10-26 07:44 | XRay Report ---
XR chest 1V portable CLINICAL HISTORY: Chest pain, nonspecific COMPARISON STUDY: Chest radiograph October 24, 2023. FINDINGS: Lung volumes are normal. Lungs are clear. There is no pneumothorax or pleural effusion. Car diac size is normal. Mediastinal contours are normal. There is no evidence for pulmonary edema. IMPRESSION: No acute cardiopulmonary findings. ACT 112: Negative or not required by law. Electronically signed by: Maurice Stiles M.D. 10/26/2023 7:42 AM
--- NOTE | 2023-10-26 08:20 | Electrocardiogram Report ---
Test Reason : Blood Pressure : */* mmHG Vent. Rate : 71 BPM Atrial Rate : 71 BPM P-R Int : 160 ms QRS Dur : 88 ms QT Int : 394 ms P-R-T Axes : 55 37 71 degrees QTcB Int : 428 ms Normal sinus rhythm Recent Anteroseptal infarct (cited on or before 19-Oct-2023) Abnormal ECG When compared with ECG of 20-Oct-2023 06:00, Serial changes of evolving Anteroseptal infarct Present Confirmed by Phil Guerrero ([id number]) on 10/26/2023 8:19:36 AM Referred By: REFERRED SELF Confirmed By: Phil Guerrero
[2023-10-26] MEDS: ASPIRIN 81 MG ECTAB PO SCH (08:36)
[2023-10-26] MEDS: TAMSULOSIN HCL 0.4 MG CAP PO SCH (08:36)
[2023-10-26] MEDS: METOPROLOL SUCC 25MG EXT REL TAB PO SCH (08:36)
[2023-10-26] MEDS: CIPROFLOXACIN 500 MG TAB PO SCH (08:36)
[2023-10-26] MEDS: ATORVASTATIN 40 MG TAB PO SCH (08:36)
[2023-10-26] MEDS: CLOPIDOGREL BISULFATE 75 MG TAB PO SCH (08:36)
[2023-10-26] MEDS ORDERED: VALSARTAN/SACUBITRIL 26/24MG TAB PO SCH (09:00)
[2023-10-26 09:07] VITALS: BP 128/74; RESP 18; TEMP 98.6; O2SAT 97
--- NOTE | 2023-10-26 09:41 | Urology Consultation ---
Date of Consultation October 26, 2023 Assessment & Plan (1) Urinary retention: Urinary retention currently managed with indwelling Malone catheter. He is scheduled for an office visit on 10/29/2023, and would like to hold off on a voiding trial until that time. If he is unable to void, CIC would be an option, however he is not ready to commit to this yet. In the meantime, he should continue tamsulosin and can use sildenafil as he has been for his outlet. Would recommend starting finasteride 5 mg daily as well. (2) BPH w urinary obs/LUTS: (3) Elevated PSA: We reviewed his elevated PSAs and that this could represent underlying prostate cancer. He will require further workup, however this may be complicated by his recent stent placement and need to continue on blood thinners. As a next step, we will plan to recheck PSA in a couple months to further establish the trend, since it seems to be downtrending on his prior to labs. Plan No plan for acute urologic intervention at this time Keep Malone catheter in place until office visit Would recommend starting finasteride, 5 mg daily Could try Pyridium for bladder spasms/urinary irritation. Would hold off anticholinergics for now as these may worsen his ability to void spontaneously. Complete course of antibiotics as prescribed. Urology will sign off, please call with any questions or concerns History of Present Illness Reason for Consultation: Urinary retention, indwelling Malone catheter, suprapubic pressure Attending Physician: Timothy Montes History of Present Illness This is a 72-year-old male with recent history of NSTEMI s/p drug-eluting stent placement on 10/19/2023. He was seen by urology while in the hospital at that time for urinary retention and catheter management. He also has a history of elevated PSA. He returned to the emergency department on 10/25/2023 with chest pain and was admitted for ongoing care. Urology was consulted regarding his PSA and BPH/urinary retention. At the bedside this morning, he has a catheter in place and reports that it is bothersome, but has been draining. He is still on tamsulosin twice daily as well as sildenafil at nighttime. He has not been on finasteride. The urine in the catheter has been pink-tinged and sometimes he has bleeding around the catheter as well. Catheter has been draining. He had previously been in the emergency department on 10/23 with urinary retention and concern for possible infection. He was sent home on ciprofloxacin at that point, and has been continued on this medication in the hospital. Labs reviewed: 10/26/2023: WBC 7.90, creatinine 1.13, glucose 103 He reports that his PSA was checked in Jul, 2023 and found to be 12 Follow-up check was performed in August and had decreased to 11 Allergies Allergy/AdvReac Type Severity Reaction Status Date / Time acetaminophen Allergy Intermediate HIVES Verified 10/25/23 21:10 Home Medications Medication Instructions Recorded Confirmed Type tamsulosin 0.4 mg capsule 0.4 mg PO BID 10/18/23 10/25/23 History aspirin 81 mg tablet,delayed 81 mg PO QAM #30 tabs 10/20/23 10/25/23 Rx release atorvastatin 40 mg tablet 40 mg PO QAM #90 tabs 10/20/23 10/25/23 Rx clopidogrel 75 mg tablet 75 mg PO QAM #90 tabs 10/20/23 10/25/23 Rx metoprolol succinate 25 mg 12.5 mg (1/2 x 25 mg) PO BID #90 10/20/23 10/25/23 Rx tablet,extended release 24 hr tabs sacubitril 24 mg-valsartan 26 mg 0.5 tab PO BID #90 tabs 10/20/23 10/25/23 Rx tablet (Entresto) sildenafil 100 mg tablet 50 mg PO HS 10/20/23 10/25/23 History ciprofloxacin HCl 500 mg tablet 500 mg PO Q12H #20 tabs 10/24/23 10/25/23 Rx (Cipro) ondansetron 4 mg disintegrating 4 mg PO Q8H PRN nausea and 10/24/23 10/25/23 Rx tablet vomiting 5 days #15 tabs Patient History Medical History Elevated PSA Family History Other Family history non-contributory Social History Smoking Status: Never smoker Second Hand Exposure: No; Do You Dip or Chew Tobacco: No; Hx Alcohol Use: Yes Alcohol type: wine Hx Substance Use: No Preferred Language: Tajik Communication Ability: Effective 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 Physical Exam Constitutional: well developed and well nourished; no acute distress Eyes: + anicteric sclerae; pupils not irregula r Respiratory: normal respiratory effort; no respiratory distress, does not use accessory muscles and no cough Cardiovascular: well perfused Gastrointestinal (Abdomen): Inspection/Auscultation: abdomen normal to inspection; abdomen not distended Musculoskeletal: Extremities: extremities normal to inspection Skin: normal turgor; no rashes and no lesions Neurologic: moves all extremities and awake Psychiatric: Orientation: alert and oriented x 3 Genitourinary: Malone catheter in place draining pink-tinged urine Results & Data Vital Signs (Past 12 Hours) Vital Signs Temp Pulse Pulse Pulse Resp BP BP 10/26/23 07:35 37.0 C 78 18 128/74 10/26/23 07:33 78 10/26/23 02:52 37.2 C 76 16 116/71 10/26/23 00:00 93 H 10/26/23 00:00 36.8 C 80 18 146/77 H 10/25/23 23:00 85 17 150/87 H 10/25/23 22:33 80 20 10/25/23 22:30 145/86 H 10/25/23 22:30 145/86 H 10/25/23 22:30 145/86 H 10/25/23 22:21 76 21 10/25/23 22:09 74 17 Pulse Ox O2 Del Method 10/26/23 07:35 97 Room Air 10/26/23 07:33 10/26/23 02:52 96 Room Air 10/26/23 00:00 10/26/23 00:00 98 Room Air 10/25/23 23:00 98 Room Air 10/25/23 22:33 97 Room Air 10/25/23 22:30 10/25/23 22:30 10/25/23 22:30 10/25/23 22:21 97 10/25/23 22:09 97 PG Care Time/CCT Total # of Minutes Spent Total Time Spent with Patient: Total time spent is greater than 50% in coordination of care (as documented) at patient's floor/unit and/or counseling patient: Coding Level of Care Code 43927 INT INP/OBS CARE 2/55MIN Diagnoses Urinary retention R33.9 BPH w urinary obs/LUTS N40.1; N13.8 Elevated PSA R97.20
--- NOTE | 2023-10-26 11:06 | Discharge Summary ---
Discharge Summary Date of Service October 26, 2023 Principal Dx & Hospital Course #1 = Principal Diagnosis (1) Chest pain: (2) STEMI (ST elevation myocardial infarction): (3) Presence of drug coated stent in LAD coronary artery: (4) BPH w urinary obs/LUTS: (5) Indwelling Malone catheter present: (6) Hyperlipidemia: (7) Urinary tract infection: Plan Chest pain/status post LAD stent on 10-17/status post PTCA with stent D1 ostial 10-17/STEMI on 10-17-- The patient will be admitted to telemetry for serial cardiac enzymes, serial EKG's, cardiac rhythm monitoring The patient's symptoms were that of chest pressure upon standing, as he was standing to empty his Malone catheter bag, that since has resolved Troponin 629.9, with follow-up 612.4, then 551.4. Troponin previous admission upon discharge 60,267.7 EKG without acute changes compared to previous For potassium 3.5, gave Klor-Con 40 MEQ's p.o. For magnesium 1.8, gave magnesium sulfate 1 g IV Continue aspirin 81 mg every morning, clopidogrel 75 mg every morning, metoprolo l succinate 12.5 mg p.o. twice daily and Entresto 0.5 mg p.o. twice daily Repeat CBC with differential, renal function panel and magnesium level in the a.m. Consult cardiology Patient and family have requested to have their care changed to [facility] hospitalist service and [facility] cardiology. He has a follow-up appointment with Dr. Daigle 10/26 BPH with LUTS/urinary retention- Patient had to have a Malone placed during admission from 10/17-10/20/2023, but was able to undergo a successful voiding trial, and was discharged on tamsulosin and sildenafil without the Malone Patient returned to the emergency department 10/20 due to urine outflow issues, and had Malone catheter placed at that time Patient returned to the emergency department on 10/23 due to nausea, and was started on Cipro and Zofran for presumptive urinary tract infection, which will be continued, with microscopic growth present Patient was seen by urology during last hospitalization, and has a follow-up appointment next week Continue sildenafil 50 mg at bedtime, and tamsulosin 0.4 mg p.o. twice daily Consult urology Hyperlipidemia- Continuing atorvastatin Admission HPI Per Admitting Provider The patient is a 72-year-old male with a past medical history including BPH with LUTS, now with chronic indwelling Malone catheter, hyperlipidemia, NSTEMI on 10/18/2023, hypertension, hyperlipidemia and anxiety. He was initially admitted on [facility] service from 10/17-10/20/2023, for a STEMI, and underwent cardiac catheterization on 10/[address] Daigle and had placement of a MICHAEL LAD 100% lesion, and D1 ostial jailed/thrombosed PTCA/stent strut dilatation. He reports that his chest discomfort had been doing well until yesterday, when he went from sitting to standing to change his Malone bag, and developed chest pressure, not nearly as intense as his NSTEMI, but concerning enough to come to the ED for assessment. Patient and family asked to be admitted to the [facility] hospitalist service, to be seen by [facility] cardiology while in hospital, and he has a follow-up appointment with Dr. Daigle 10/26 in the outpatient setting He also has a follow-up appointment with [facility] urology for later in the week Updated Medication List Medication Instructions Recorded Confirmed Type tamsulosin 0.4 mg capsule 0.4 mg PO BID 10/18/23 10/25/23 History aspirin 81 mg tablet,delayed 81 mg PO QAM #30 tabs 10/20/23 10/25/23 Rx release atorvastatin 40 mg tablet 40 mg PO QAM #90 tabs 10/20/23 10/25/23 Rx clopidogrel 75 mg tablet 75 mg PO QAM #90 tabs 10/20/23 10/25/23 Rx metoprolol succinate 25 mg 12.5 mg (1/2 x 25 mg) PO BID #90 10/20/23 10/25/23 Rx tablet,extended release 24 hr tabs sacubitril 24 mg-valsartan 26 mg 0.5 tab PO BID #90 tabs 10/20/23 10/25/23 Rx tablet (Entresto) sildenafil 100 mg tablet 50 mg PO HS 10/20/23 10/25/23 History ciprofloxacin HCl 500 mg tablet 500 mg PO Q12H #20 tabs 10/24/23 10/25/23 Rx (Cipro) ondansetron 4 mg disintegrating 4 mg PO Q8H PRN nausea and 10/24/23 10/25/23 Rx tablet vomiting 5 days #15 tabs finasteride 5 mg tablet 5 mg PO QAM #30 tabs 10/26/23 Rx nitroglycerin 0.4 mg sublingual 0.4 mg sublingual Q5M PRN chest 10/26/23 Rx tablet pain #7 tabs Hospital Stay Data Consultations 10/25/23 21:34 ED Decision to Admit Stat 10/26/23 00:24 Consult Cardiology Routine Consult Urology Routine Pending Results Patient Have Any Pending Studies at Discharge: No Discharge Instructions Given to Patient (Per Discharging Provider) Keep appointment with Dr. Daigle. Given interaction of nitroglycerin with sildenafil, we will have you skip tonight's dose. We will have Dr. Daigle discuss with you at the appointment if this sildenafil will be continued moving forward. Please keep your urology appointment. Coding Diagnoses Chest pain R07.9 Chest pain type: unspecified STEMI (ST elevation myocardial infarction) I21.3 Presence of drug coated stent in LAD coronary artery Z95.5 BPH w urinary obs/LUTS N40.1; N13.8 Indwelling Malone catheter present Z97.8 Hyperlipidemia E78.5 Urinary tract infection N39.0
[2023-10-26 11:18] VITALS: PULSE 80
[2023-10-26] MEDS: FINASTERIDE 5 MG TAB PO SCH (11:20)
--- NOTE | 2023-10-26 12:14 | Cardiology Consultation ---
Date of Consultation October 26, 2023 Assessment & Plan (1) Chest pain: (2) Presence of drug coated stent in LAD coronary artery: (3) BPH (benign prostatic hyperplasia): Plan 72-year-old man with recent STEMI due to occluded LAD for which he underwent successful stenting by Dr. Daigle on 10/18/2023. He had transient/mild chest discomfort last evening which does not appear to represent an acute coronary syndrome. ECG showed expected evolutionary changes from recent infarct and troponin values were elevated from his recent infarct but showed a steady decline with no current peak and decay pattern to suggest a new event. The patient feels well, could ambulate and if no symptoms could discharge home. Due to concerns about recurrent symptoms once he is home, did recommend that he have sublingual nitroglycerin available, but he is also prescribed sildenafil so this will be problematic. Would recommend that he hold the sildenafil for a few days while his catheter remains in place, such that should he develop any recurr ent symptoms he has nitroglycerin available for any chest pain both for diagnostic and therapeutic purposes. If he remains symptom-free in a few days, could resume the sildenafil but would need to be instructed not to take nitroglycerin. He has an appointment with Dr. Daigle at 9 AM tomorrow, defer to him regarding further management and evaluation. Case discussed with Dr. Mnotes. History of Present Illness Reason for Consultation: transient chest pain, post STEMI/ LAD stent Requesting Physician: Timothy Montes MD Attending Physician: Timothy Montes MD History of Present Illness 72 male with CAD status post LAD stent 10/18/2023 for STEMI, developed urinary obstruction, felt well until last evening when he developed about an hour very minimal (1/10) uncomfortable sensation in his chest. At the time of his catheterization he was found to have an occluded proximal LAD, post stenting he required PTCA of stent strut in the first diagonal with no significant residual jailing. Post procedures, only nonocclusive stenoses remained. His activity postevent had been limited somewhat by presence of Malone catheter. However, he noted no symptoms until last evening. His discomfort resolved without intervention and has not recurred. ER evaluation showed recent anteroseptal infarct with expected evolution (Q waves with mild residual anteroseptal ST elevation). Troponin was elevated at 629 but steadily declined on 3 subsequent values (of note initial troponin last week was 60,000 range). No somatic complaints at the time my evaluation this morning. Allergies Allergy/AdvReac Type Severity Reaction Status Date / Time acetaminophen Allergy Intermediate HIVES Verified 10/25/23 21:10 Home Medications Medication Instructions Recorded Confirmed Type tamsulosin 0.4 mg capsule 0.4 mg PO BID 10/18/23 10/25/23 History aspirin 81 mg tablet,delayed 81 mg PO QAM #30 tabs 10/20/23 10/25/23 Rx release atorvastatin 40 mg tablet 40 mg PO QAM #90 tabs 10/20/23 10/25/23 Rx clopidogrel 75 mg tablet 75 mg PO QAM #90 tabs 10/20/23 10/25/23 Rx metoprolol succinate 25 mg 12.5 mg (1/2 x 25 mg) PO BID #90 10/20/23 10/25/23 Rx tablet,extended release 24 hr tabs sacubitril 24 mg-valsartan 26 mg 0.5 tab PO BID #90 tabs 10/20/23 10/25/23 Rx tablet (Entresto) sildenafil 100 mg tablet 50 mg PO HS 10/20/23 10/25/23 History ondansetron 4 mg disintegrating 4 mg PO Q8H PRN nausea and 10/24/23 10/25/23 Rx tablet vomiting 5 days #15 tabs finasteride 5 mg tablet 5 mg PO QAM #30 tabs 10/26/23 Rx nitroglycerin 0.4 mg sublingual 0.4 mg sublingual Q5M PRN chest 10/26/23 Rx tablet pain #7 tabs Patient History Medical History Elevated PSA Family History Other Family history non-contributory Social History Smoking Status: Never smoker Second Hand Exposure: No; Do You Dip or Chew Tobacco: No; Hx Alcohol Use: Yes Alcohol type: wine Hx Substance Use: No Preferred Language: Slovenian Communication Ability: Effective [employer]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 Afebrile. BP normotensive. Pulse 80 bpm and regular. Respirations 18 unlabored. Skin: no ecchymoses or generalized lesions. HEENT: unremarkable. Neck: JVP at the clavicle at 90 degrees, no carotid bruits. Lungs: clear. Cardiac: regular rhythm, normal S1-2, no murmur. Abdomen: benign. Extremities: no edema, pulses intact. Neurologic: normal affect and conversation, nonfocal. Results & Data Vital Signs (Past 12 Hours) Vital Signs Temp Pulse Pulse Pulse Resp BP Pulse Ox 10/26/23 11:17 98.6 F 80 78 18 128/74 97 10/26/23 07:35 98.6 F 78 18 128/74 97 10/26/23 07:33 78 10/26/23 02:52 99.0 F 76 16 116/71 96 O2 Del Method 10/26/23 11:17 10/26/23 07:35 Room Air 10/26/23 07:33 10/26/23 02:52 Room Air Laboratory Results Troponins as per HPI. Hemoglobin 11.5. Normal electrolytes, BUN 11, creatinine 1.13. Diagnostic Findings ECG showed sinus rhythm with recent anteroseptal infarct (Q waves with minimal residual ST elevation in the anteroseptal leads). Repeat ECG today was unchanged. Chest x-ray unremarkable. PG Care Time/CCT Total # of Minutes Spent Total Time Spent with Patient: Total time spent is greater than 50% in coordination of care (as documented) at patient's floor/unit and/or counseling patient: Coding Level of Care Code 78068 IN/OBS CONSULT LVL 4,60M Diagnoses Chest pain R07.9 Chest pain type: unspecified Presence of drug coated stent in LAD coronary artery Z95.5 BPH (benign prostatic hyperplasia) N40.1; R33.8 Lower urinary tract symptom detail: urinary retention Lower urinary tract symptom presence: symptoms present (1) Chest pain Chest pain type: unspecified Qualified Code(s): R07.9 - Chest pain, unspecified (3) BPH (benign prostatic hyperplasia) Lower urinary tract symptom detail: urinary retention Lower urinary tract symptom presence: symptoms present Qualified Code(s): N40.1 - Benign prostatic hyperplasia with lower urinary tract symptoms; R33.8 - Other retention of urine
--- NOTE | 2023-10-26 13:33 | Electrocardiogram Report ---
Test Reason : Blood Pressure : */* mmHG Vent. Rate : 83 BPM Atrial Rate : 83 BPM P-R Int : 144 ms QRS Dur : 78 ms QT Int : 350 ms P-R-T Axes : 13 37 -18 degrees QTcB Int : 411 ms Normal sinus rhythm Recent Septal infarct (cited on or before 19-Oct-2023) Abnormal ECG When compared with ECG of 25-Oct-2023 20:18, No significant change Confirmed by Phil Guerrero ([id number]) on 10/26/2023 1:33:28 PM Referred By: REFERRED SELF Confirmed By: Phil Guerrero
[2023-10-26] MEDS ORDERED: SILDENAFIL CITRATE 20 MG TABLET PO SCH (21:00)
== END 2023-10-26 13:10 | disposition home or self-care (01) ==
LOC: 2S 20:13 → ED 20:13 → SUATTDRO 22:57 → 2S 23:35

== ENCOUNTER 2023-11-02 12:22 | Inpatient (IN) ==
--- NOTE | 2023-11-02 12:56 | Emergency Department Note ---
ED Provider Note History of Present Illness Chief Complaint: Catheter Replacement Stated Complaint: BLEEDING FROM CATHETER Time Seen by Provider: 11/02/23 12:55 This is a 72-year-old male with a recent CO on 10/18/2023 on clopidogrel, acute urinary retention requiring Malone catheterization during initial admission, accompanied by his , who presents to the emergency department with bloody urine draining into the Malone bag and around to the urinary catheter. Patient states that he was having normal yellow urine draining out of his bag today until he had a bowel movement. This triggered a significant amount of blood draining as described above. He has not had any pain associated with this episode today but did notice some clots draining through the urinary catheter into the bag. He has felt very tired recently but has not had any fevers. Denies any new chest pain or shortness of breath, no back pain or abdominal discomfort. Patient was seen by urology 4 days ago in the office. He was having some hematuria at that time as well. He attempted a voiding trial but failed, so a new Malone catheter was placed. A CT scan was ordered for outpatient management, and he was scheduled for cystoscopy for November 23 of this year. Patient is taking his medications as prescribed. Home Medications Medication Instructions Recorded Confirmed Type tamsulosin 0.4 mg capsule 0.4 mg PO BID 10/18/23 11/02/23 History aspirin 81 mg tablet,delayed 81 mg PO QAM #30 tabs 10/20/23 11/02/23 Rx release atorvastatin 40 mg tablet 40 mg PO QAM #90 tabs 10/20/23 11/02/23 Rx clopidogrel 75 mg tablet 75 mg PO QAM #90 tabs 10/20/23 11/02/23 Rx metoprolol succinate 25 mg 12.5 mg (1/2 x 25 mg) PO BID #90 10/20/23 11/02/23 Rx tablet,extended release 24 hr tabs sacubitril 24 mg-valsartan 26 mg 0.5 tab PO BID #90 tabs 10/20/23 11/02/23 Rx tablet (Entresto) sildenafil 100 mg tablet 50 mg PO HS 10/20/23 11/02/23 History Allergies Allergy/AdvReac Type Severity Reaction Status Date / Time acetaminophen Allergy Intermediate HIVES Verified 10/29/23 10:17 Past Med/Surg History Problem List (Updated 11/02/23 @ 16:20 by ALEKSANDER Marr) Enlarged prostate (Acute) Elevated serum creatinine (Acute) Leukocytosis (Acute) Hematuria (Acute) Benign essential hypertension Urinary tract infection Indwelling Malone catheter present BPH w urinary obs/LUTS Presence of drug coated stent in LAD coronary artery Chest pain (Acute) Nausea (Acute) Acute urinary retention (Acute) BPH (benign prostatic hyperplasia) (Acute) Hematuria Urinary retention Hyperlipidemia Acute vomiting Electrolyte disturbance Hypotensive episode STEMI (ST elevation myocardial infarction) (Acute 10/18/23) Medical History Elevated PSA Family History Other Family history non-contributory Social History Smoking Status: Former smoker Second Hand Exposure: No; Do You Dip or Chew Tobacco: No; Hx Alcohol Use: Yes Alcohol type: wine Hx Substance Use: No Preferred Language: Sami Communication Ability: Effective 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 Beliefs That Will Affect Care: None Current Living Situation: Spouse Feels Safe at Home: Yes Assistive Devices: Contacts Physical Exam Vital Signs Vital Signs - 24 hr 11/02/23 12:22 11/02/23 12:22 11/02/23 15:35 Temperature 97.9 F Temperature Source Temporal Artery Scan Pulse Rate 110 H Pulse Rate [Right Finger] 86 Respiratory Rate 18 16 16 Respiratory Effort / Characteristics Non-Labored Spontaneous Respiratory Depth Normal Blood Pressure 101/70 Blood Pressure [Right Arm] 127/90 Blood Pressure Mean 80 Blood Pressure Mean [Right Arm] 102 Pulse Oximetry 95 98 Oxygen Delivery Method Room Air Room Air Sepsis Recent Fever Within 48 Hours No Sepsis New/Unexplained Change in Mental Status N/A Sepsis Action Taken by Nursing No Action Required CONSTITUTIONAL: Well developed, well nourished, in no acute distress. HEAD: Normocephalic, atraumatic. EYES: conjunctivae normal, extraocular muscles intact. No scleral icterus ENMT: External ears normal. Nose with normal external appearance, no congestion. Oral mucous membranes somewhat dry. Oropharynx otherwise normal. NECK: Full active range of motion. RESPIRATORY: Breathing unlabored and symmetric. Lungs clear to auscultation bilaterally. No wheeze, rales, or rhonchi. CARDIOVASCULAR: Tachycardic rate and regular rhythm. No murmurs rubs or gallops. ABDOMEN: Normal bowel sounds. Abdomen is soft. There is no peritonitis. There is mild tenderness over the suprapubic area. No CVA tenderness bilaterally. GENITOURINARY: Malone catheter is in place. There is pain elicited with gentle traction on the catheter tubing. There is hematuria present in the catheter bag. There is mild hematuria leaking out around the catheter tubing. Scrotum is without inflammation or edema. No edema. SKIN: [place], warm, dry. NEUROLOGIC: Awake, alert, oriented. Gaze is conjugate. Face symmetric, speech normal. Moves head and all four extremities spontaneously. Sensation and strength grossly intact. PSYCHIATRIC: Appropriate. Normal affect Course Administered Medications Discontinued Medications Sodium Chloride (Nss) 1,000 mls @ 999 mls/hr IV .Q1H1M ONE Stop: 11/02/23 15:24 Last Infusion: 11/02/23 15:44 Dose: Infused Documented By: Admin: 11/02/23 14:30 Dose: 999 mls/hr Documented By: YIN Ioversol (Optiray 320 100ml) 93 ml IV ONCE ONE Stop: 11/02/23 14:40 Last Admin: 11/02/23 14:39 Dose: 93 ml Documented By: ISAIAH Medical Decision Making Differential Diagnosis Hematuria, Malone catheter dysfunction, malignancy, prostatomegaly, MOOKIE, UTI, pyelonephritis, electrolyte imbalance, among other pathology Medical Records Attestation: I reviewed the patient's medical records. (Reviewed prior ED notes. Reviewed recent urology note from 4 days ago.) Laboratory Data 11/02/23 13:40 11/02/23 13:40 Lab Results 11/02/23 11/02/23 Range/Units 13:40 13:57 WBC 12.96 H (4.8-10.8) K/ul RBC 4.13 L (4.70-6.10) M/uL Hgb 13.0 L (14.0-18.0) g/dl Hct 38.9 L (42.0-52.0) % MCV 94.2 (80.0-100.0) fL MCH 31.5 (25.0-34.0) pg MCHC 33.4 (32.0-36.0) g/dL RDW Std Deviation 45.1 (36.4-46.3) fL RDW Coeff of Gregoria 13.2 (11.5-14.5) % Plt Count 371 (130-400) K/uL MPV 8.7 L (9.4-12.4) fL Immature Gran % (Auto) 0.4 % Neut % (Auto) 80.7 % Lymph % (Auto) 8.3 % Franklin % (Auto) 7.9 % Eos % (Auto) 2.2 % Baso % (Auto) 0.5 % Neut # (Auto) 10.46 H (1.40-6.50) K/uL Lymph # (Auto) 1.07 L (1.20-3.40) K/uL Franklin # (Auto) 1.03 H (0.11-0.59) K/uL Eos # (Auto) 0.28 (0.00-0.50) K/uL Baso # (Auto) 0.07 (0.00-0.20) K/uL Immature Gran # (Auto) 0.05 (0.01-0.20) K/uL PT 11.1 (9.0-12.0) Seconds INR 1.0 (0.9-1.1) APTT 25 (21-31) Seconds PTT Ratio 0.9 Sodium 144 (136-145) mmol/L Potassium 4.2 (3.5-5.1) mmol/L Chloride 104 (98-107) mmol/L Carbon Dioxide 24 (21-32) mmol/L Anion Gap 16 H (3-11) BUN 18 (6-23) mg/dl Creatinine 1.43 H (0.6-1.4) mg/dl Est Cr Clr Drug Dosing Not Reportable Est GFR ( Amer) 56.3 ml/min Est GFR (Non-Af Amer) 48.6 ml/min BUN/Creatinine Ratio 12.6 (10-20) Glucose 115 H (70-99(Fasting)) mg/dl Calcium 9.4 (8.6-10.3) mg/dl Total Bilirubin 0.6 (0.2-1.0) mg/dl AST 23 (13-39) U/L ALT 20 (7-52) U/L Alkaline Phosphatase 60 (34-104) U/L Total Protein 7.1 (6.0-8.3) gm/dl Albumin 3.9 (3.4-5.0) gm/dl Globulin 3.2 (2.5-4.0) gm/dl Albumin/Globulin Ratio 1.2 (0.9-2) Urine Color Dawna Urine Appearance Cloudy A (Clear) Urine pH 6.5 (4.5-7.5) Ur Specific Art >= 1.030 (1.000-1.030) Urine Protein 3+ H (Negative) Urine Glucose (UA) Negative (Negative) Urine Ketones Negative (Negative) Urine Blood 3+ H (Negative) Urine Nitrite Negative (Negative) Urine Bilirubin Negative (Negative) Urine Urobilinogen Negative (Negative) Ur Leukocyte Esterase Negative (Negative) Urine RBC >20 H (0-2) /hpf Urine WBC 11-20 H (0-5) /hpf Ur Epithelial Cells 0-2 (0-2) /hpf Urine Bacteria None Seen (None Seen) Hyaline Casts Present A (None Presnt) /lpf Urine Mucus Present A (None Prsent) Imaging Data Radiologist's Impression: Abdomen/Pelvis CT 11/02/23 14:[address] WITH IV CONTRAST CT DOSE: 791.53 mGy.cm HISTORY: painless hematuria, urinary retention TECHNIQUE: Multiaxial CT images of the abdomen and pelvis were performed following the use of intravenous contrast. A dose lowering technique was utilized adhering to the principles of ALARA. COMPARISON STUDY: None. FINDINGS: Mild dependent changes seen within the lungs posteriorly. Trace left pleural effusion. No pneumoperitoneum. No pneumatosis. No acute fractures. There are few scattered hypodense lesions within the liver with the largest in the left hepatic lobe measuring 3.2 cm. These favor cysts. There is also a peripheral enhancing lesion within the anterior segment of the right hepatic lobe measuring 5.6 cm. This favors a hemangioma. The main portal vein is patent. The gallbladder, pancreas, spleen, and adrenal glands are unremarkable. Multiple bilateral renal hypodense lesions are noted. The majority these are totally too small to characterize. Statistically these represent cysts. Dominant right renal cyst measures 2.3 cm. No hydronephrosis. 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 This measures 15 mm in diameter. However, the lumen appears patent. Calcified plaque within the normal caliber abdominal aorta. No pelvic lymphadenopathy or pelvic free fluid. Severely enlarged and heterogeneous prostate gland. There is a Malone catheter within the bladder. Hyperdense material within the bladder favors blood products given the patient's history of hematuria. There is a small amount of gas within the bladder lumen likely due to the catheterization. A few colonic diverticula. No evidence for acute diverticulitis. No bowel wall thickening or obstruction. Normal appendix. Mild bladder wall thickening. IMPRESSION: 1. Mild bladder wall thickening. This may be due to underdistention. 2. Hyperdense material within the bladder lumen suggestive of blood products in the setting of hematuria. 3. There is a Malone catheter within the bladder lumen. 4. Severe prostatomegaly. 5. No bowel wall thickening or obstruction. 6. A peripherally enhancing 5.6 cm lesion within the right hepatic lobe. This favors a hemangioma. 7. 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 This measures 15 mm in diameter. However, the lumen appears patent. 8. Additional findings as described above. ACT 112: Negative or not required by law. Electronically signed by: Otto Moran M.D. 11/02/2023 3:27 PM MDM Narrative This is a 72-year-old male who presents to the emergency department with significant hematuria and bloody urine leaking around his Malone catheter to that started today after having a bowel movement. He had acute urinary retention when he was initially admitted about 2 weeks ago for an MRI. Failed a voiding trial 4 days ago and had catheter reinserted. See above for further details. Patient initially tachycardic. He has some mild tenderness over the suprapubic abdomen. He has gross hematuria in his Malone catheter bag and there is some hematuria leaking externally out of his urethra. Bladder scan reveals no urinary retention. Attempted to irrigate the Malone catheter however this was quite painful for the patient. An IV was inserted and labs were obtained. He was given IV fluids. CT of the abdomen pelvis was also ordered. Labs: There is a new leukocytosis at 12.96. Possibly hemoconcentration with a hemoglobin of 13 which is slightly improved from prior. No thrombocytopenia. Coags are normal. Anion gap somewhat elevated at 16. Creatinine is also somewhat elevated at 1.43 compared to his baseline of 1.1. No transaminitis. Urine with 3+ blood and 11-20 white blood cells. No epithelial cells are noted. Possible infection. CT of the abdomen and pelvis demonstrates mild bladder wall thickening with hyperdense material in the bladder lumen suggestive of blood products. He has the Malone catheter in the bladder lumen with severe prostatomegaly. 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 Patient without any significant pain so I think this is more likely a chronic process. Called and spoke with Dr. Coffey with urology regarding the patient's presentation. He viewed his CT scan. He states that the Malone catheter is in the right place and he does not recommend removing it. He agrees the patient needs a cystoscopy and may continue to bleed which could be coming from the prostate. I reviewed the case with ED attending Dr. Garcia. Given his new leukocytosis, elevated creatinine, fatigue, with significant hematuria, we decided to admit the patient for observation, IV fluids, antibiotics, and monitoring. Patient is agreeable with this plan. [facility] hospitalist group was consulted and they agree to admit the patient. They will manage antibiotic selection. Impression Hematuria, Leukocytosis, Elevated serum creatinine, Enlarged prostate Discharge Plan Visit Data Chief Complaint: Catheter Replacement Stated Complaint: BLEEDING FROM CATHETER ED Provider: Dean Garcia ED Midlevel Provider: Yusuf Matthew Discharge Problem: Hematuria, Leukocytosis, Elevated serum creatinine, Enlarged prostate Patient Disposition: Admitted As Inpatient Condition: Fair Forms Stand Alone Forms: My [facility] Prescriptions Prescriptions: No Action tamsulosin 0.4 mg capsule 0.4 mg PO BID atorvastatin 40 mg Tablet 40 mg PO QAM Qty: 90 3RF clopidogrel 75 mg Tablet 75 mg PO QAM Qty: 90 3RF metoprolol succinate 25 mg Tablet Extended Release 24 Hr 12.5 mg PO BID Qty: 90 3RF Entresto 24-26 mg Tablet 0.5 tab PO BID Qty: 90 3RF aspirin 81 mg Tablet,Delayed Release (Dr/Ec) 81 mg PO QAM Qty: 30 3RF sildenafil 100 mg tablet 50 mg PO HS Hold Instructions: Resume on 10/27/23. skip tonight's dose of sildenafil and we will have you discuss with Dr. Daigle tomorrow. Referrals Referrals: Daria Mcdaniel MD [Primary Care Provider] - Discharge Problem: Hematuria Qualifiers: Hematuria type: unspecified type Qualified Code(s): R31.9 - Hematuria, unspecified Leukocytosis Qualifiers: Leukocytosis type: unspecified Qualified Code(s): D72.829 - Elevated white blood cell count, unspecified
[2023-11-02 13:58] LABS: Basophils # (auto) 0.07 K/uL (0.00-0.20); Basophils % (auto) 0.5 %; Eosinophils # (auto) 0.28 K/uL (0.00-0.50); Eosinophils % (auto) 2.2 %; Hematocrit (blood only) 38.9 % (42.0-52.0); Immature Granulocytes # (auto) 0.05 K/uL (0.01-0.20); Immature Granulocytes % (auto) 0.4 %; Lymphocytes # (auto) 1.07 K/uL (1.20-3.40); Lymphocytes % (auto) 8.3 %; Mean Corpuscular Hemoglobin 31.5 pg (25.0-34.0); Mean Corpuscular Hgb Conc 33.4 g/dL (32.0-36.0); Mean Corpuscular Volume 94.2 fL (80.0-100.0); Mean Platelet Volume 8.7 fL (9.4-12.4); Monocytes # (auto) 1.03 K/uL (0.11-0.59); Monocytes % (auto) 7.9 %; Neutrophils # (auto) 10.46 K/uL (1.40-6.50); Neutrophils % (auto) 80.7 %; Platelet Count 371 K/uL (130-400); RDW Coefficient of Variation 13.2 % (11.5-14.5); RDW Standard Deviation 45.1 fL (36.4-46.3); Red Blood Count 4.13 M/uL (4.70-6.10); White Blood Count 12.96 K/ul (4.8-10.8)
[2023-11-02 14:16] LABS: Alanine Aminotransferase 20 U/L (7-52); Albumin Globulin Ratio 1.2 (0.9-2); Albumin Level 3.9 gm/dl (3.4-5.0); Alkaline Phosphatase 60 U/L (34-104); Anion Gap 16 (3-11); Aspartate Aminotransferase 23 U/L (13-39); BUN Creatinine Ratio 12.6 (10-20); Bilirubin,Total 0.6 mg/dl (0.2-1.0); Blood Urea Nitrogen 18 mg/dl (6-23); Calcium 9.4 mg/dl (8.6-10.3); Carbon Dioxide 24 mmol/L (21-32); Chloride 104 mmol/L (98-107); Est GFR (African American) 56.3 ml/min; Est GFR (Non-African American) 48.6 ml/min; Globulin 3.2 gm/dl (2.5-4.0); Glucose 115 mg/dl (70-99(Fasting)); Potassium 4.2 mmol/L (3.5-5.1); Sodium 144 mmol/L (136-145); Total Protein 7.1 gm/dl (6.0-8.3)
[2023-11-02 14:16] LABS: Appearance Urine Cloudy (Clear); Bilirubin Urine Negative (Negative); Blood Urine 3+ (Negative); Color Urine Amber; Glucose Urine UA Negative (Negative); Ketones Urine Negative (Negative); Leukocyte Esterase Urine Negative (Negative); Nitrite Urine Negative (Negative); Protein Urine 3+ (Negative); Specific Gravity Urine >= 1.030 (1.000-1.030); Urobilinogen Urine Negative (Negative); pH Urine 6.5 (4.5-7.5)
[2023-11-02 14:18] LABS: Epithelial Cell Urine 0-2 /hpf (0-2); RBC Urine >20 /hpf (0-2)
[2023-11-02 14:20] LABS: Bacteria Urine None Seen (None Seen); Hyaline Casts Urine Present /lpf (None Presnt); Mucus Urine Present (None Prsent)
[2023-11-02 14:27] LABS: Partial Thromboplastin Ratio 0.9; Partial Thromboplastin Time 25 Seconds (21-31); Prothrombin Time 11.1 Seconds (9.0-12.0)
[2023-11-02] MEDS: SODIUM CHLORIDE 0.9% 1,000 ML IV ONE (14:30)
[2023-11-02] MEDS: OPTIRAY 320 100ml IV ONE (14:39)
--- NOTE | 2023-11-02 15:29 | CT Scan Report ---
ABDOMEN AND PELVIS CT WITH IV CONTRAST CT DOSE: 791.53 mGy.cm HISTORY: painless hematuria, urinary retention TECHNIQUE: Multiaxial CT images of the abdomen and pelvis were performed following the use of intrave nous contrast. A dose lowering technique was utilized adhering to the principles of ALARA. COMPARISON STUDY: None. FINDINGS: Mild dependent changes seen within the lungs posteriorly. Trace left pleural effusion. No p neumoperitoneum. No pneumatosis. No acute fractures. There are few scattered hypodense lesions within the liver with the largest in the left hepatic lobe measuring 3.2 cm. These favor cysts. There is al so a peripheral enhancing lesion within the anterior segment of the right hepatic lobe measuring 5.6 cm. This favors a hemangioma. The main portal vein is patent. The gallbladder, pancreas, spleen, and adrenal glands are unremarkable. Multiple bilateral renal hypodense lesions are noted. The majority t hese are totally too small to characterize. Statistically these represent cysts. Dominant right renal cyst measures 2.3 cm. No hydronephrosis. Focal fusiform aneurysmal dilatation of the celiac artery w ith a possible chronic dissection. This measures 15 mm in diameter. However, the lumen appears patent . Calcified plaque within the normal caliber abdominal aorta. No pelvic lymphadenopathy or pelvic lanie e fluid. Severely enlarged and heterogeneous prostate gland. There is a Malone catheter within the lara dder. Hyperdense material within the bladder favors blood products given the patient's history of hem aturia. There is a small amount of gas within the bladder lumen likely due to the catheterization. A few colonic diverticula. No evidence for acute diverticulitis. No bowel wall thickening or obstructio n. Normal appendix. Mild bladder wall thickening. IMPRESSION: 1. Mild bladder wall thickening. This may be due to underdistention. 2. Hyperdense material within the bladder lumen suggestive of blood products in the setting of hematu akilah. 3. There is a Malone catheter within the bladder lumen. 4. Severe prostatomegaly. 5. No bowel wall thickening or obstruction. 6. A peripherally enhancing 5.6 cm lesion within the right hepatic lobe. This favors a hemangioma. 7. 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 This measures 15 mm in diameter. However, the lumen appears patent. 8. Additional findings as described above. ACT 112: Negative or not required by law. Electronically signed by: Otto Moran M.D. 11/02/2023 3:27 PM
--- NOTE | 2023-11-02 16:21 | Emergency Department Note ---
ED Visit Note I was consulted by the Advanced Practice Provider. The case was discussed at length. I personally made/approved the management plan and take responsibility for the patient management. I performed a substantive portion of the visit. This includes the aspects of: Patient presents with hematuria. He was found to have some acute kidney injury. He had a leukocytosis which was worrisome for the possibility of infection. His urine sample showed contamination versus irritation versus infection. CT imaging did not demonstrate any concerning urinary obstruction or acute surgical pathology. The patient presents for hematuria. He has had multiple visits for similar complaints. Urology was consulted. Given the circumstances, given his frequent visits, given the new laboratory findings, hospitalization was felt warranted. The on- call hospitalist was consulted. .
--- NOTE | 2023-11-02 16:54 | History & Physical Report ---
Date of Service November 02, 2023 Assessment & Plan (1) Hematuria: Plan: Patient presents with gross hematuria in setting of catheterization for urinary retention secondary to prostatomegaly, and dual antiplatelet therapy for recent STEMI on 10/18/23. - Seen by urology outpatient on 10/28 where indwelling catheter was replaced. - Finasteride was discontinued in the outpatient setting due to a drug-induced rash. - CT A/P on admission revealed mild bladder wall thickening, hyperdense material within the bladder lumen (suggestive of blood products) severe prostatomegaly, 5.6 cm lesion within the right hepatic lobe (favors a hemangioma). - Urine culture pending. Of note, urine culture from urology visit 10/28 was negative, however, new catheter does increase chance for UTI. - IVF with NSS @100 mL/hr x 4 bags. - Ceftriaxone 2g Q24H in setting of recent catheterization. - Continue tamsulosin 0.4 mg twice daily - Continue sildenafil 50 mg p.o. at HS - Urology consulted - NPO at midnight in case urology can perform cystoscopy tomorrow. > Please contact anesthesia prior to cystoscopy given recent STEMI. (2) Presence of drug coated stent in LAD coronary artery: Plan: Patient had anterolateral STEMI requiring emergent PCI and MICHAEL on 10/18/2023. 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 - Clinically, patient denies any cardiopulmonary symptoms on presentation. - Patient was noted to have a depressed EF of 40-45% after his STEMI. - Continue aspirin 81 mg daily - Continue atorvastatin 40 mg daily - Continue Plavix 75 mg daily - Continue metoprolol 12.5 mg BID - Continue Entresto 0.5 tab BID Plan Reviewed prior urology and cardiology notes VTE PPx: Continue dual antiplatelet therapy CODE STATUS: Full code History of Present Illness Chief Complaint: Hematuria Primary Care Provider: Daria Mcdaniel MD Mr. Amin is a pleasant 72 year old male with PMH including BPH with LUTS, now with chronic indwelling Malone catheter, anterior STEMI on 10/18/2023, hypertension, hyperlipidemia, and anxiety. He presented from home with concern of hematuria. Vitals on admission are stable: normotensive, HR in the 80s, afebrile. Labs on admission are significant for leukocytosis of 12.96, Hgb of 13.0, and Cr of 1.43. Imaging on admission reveals mild bladder wall thickening, hyperdense material within the bladder lumen (suggestive of blood products) severe prostatomegaly, 5.6 cm lesion within the right hepatic lobe (favors a hemangioma). Patient reports that he took all of his regular morning medications today at 10:00, this includes his aspirin and Plavix; only recent medication change is discontinuing finasteride due to it causing a drug-induced rash. He does not use supplemental oxygen at baseline. No CPAP at night. Patient denies any discomfort or pain on admission. Patient with recent history of anterior STEMI for which patient underwent emergent PCI of proximal LAD with a drug eluting stent on 10/18/2023, now on anticoagulation (clopidogrel). Has been dealing with intermittent hematuria since. Due to urinary retention, he had a Malone catheterization last admission. Patient saw urology 4 days ago where he failed a voiding trial and indwelling catheter was replaced. He reports that he was having clear yellow urine draining out of his catheter since his urology appointment until today, 11/02/2023. He states he had a bowel movement this morning which triggered a significant amount of hematuria and some blood clots as well as radha blood outside of the catheter. Patient denies any pain associated with this episode today. On exam, tenderness was elicited with palpation of his scrotum and mild suprapubic tenderness, but no flank pain. ED discussed case with urology who believes this bleeding may be coming from the prostate and noting that he needs a cystoscopy. ROS: Patient endorses hematuria, urinary retention, rash on lower extremities bilaterally. Patient denies fever, chills, sweats, dizziness, lightheadedness, headache, chest pain, pleuritic CP, SOB, cough, abdominal pain, N/V/D, changes in bowel habits, saddle anesthesia, or numbness or tingling down the legs. Allergies Allergy/AdvReac Type Severity Reaction Status Date / Time acetaminophen Allergy Intermediate HIVES Verified 10/29/23 10:17 Home Medications Medication Instructions Recorded Confirmed Type tamsulosin 0.4 mg capsule 0.4 mg PO BID 10/18/23 11/02/23 History aspirin 81 mg tablet,delayed 81 mg PO QAM #30 tabs 10/20/23 11/02/23 Rx release atorvastatin 40 mg tablet 40 mg PO QAM #90 tabs 10/20/23 11/02/23 Rx clopidogrel 75 mg tablet 75 mg PO QAM #90 tabs 10/20/23 11/02/23 Rx metoprolol succinate 25 mg 12.5 mg (1/2 x 25 mg) PO BID #90 10/20/23 11/02/23 Rx tablet,extended release 24 hr tabs sacubitril 24 mg-valsartan 26 mg 0.5 tab PO BID #90 tabs 10/20/23 11/02/23 Rx tablet (Entresto) sildenafil 100 mg tablet 50 mg PO HS 10/20/23 11/02/23 History Past Med/Surg History Problem List (Updated 11/02/23 @ 16:20 by ALEKSANDER Marr) Enlarged prostate (Acute) Elevated serum creatinine (Acute) Leukocytosis (Acute) Hematuria (Acute) Benign essential hypertension Urinary tract infection Indwelling Malone catheter present BPH w urinary obs/LUTS Presence of drug coated stent in LAD coronary artery Chest pain (Acute) Nausea (Acute) Acute urinary retention (Acute) BPH (benign prostatic hyperplasia) (Acute) Hematuria Urinary retention Hyperlipidemia Acute vomiting Electrolyte disturbance Hypotensive episode STEMI (ST elevation myocardial infarction) (Acute 10/18/23) Medical History Elevated PSA Family History Other Family history non-contributory Social History Smoking Status: Former smoker Second Hand Exposure: No; Do You Dip or Chew Tobacco: No; Hx Alcohol Use: Yes Alcohol type: wine Hx Substance Use: No Preferred Language: Thai Communication Ability: Effective Costumed Character Required: No Beliefs That Will Affect Care: None Current Living Situation: Spouse Feels Safe at Home: Yes Assistive Devices: Contacts Physical Exam Physical Exam: General: No acute distress, nondiaphoretic, well-developed, well-nourished. Skin: Drug-induced rash on lower extremities bilaterally. Cardiac: Regular rate and rhythm without murmurs gallops or rubs. Pulm: Clear to auscultation bilaterally without wheezes, rales or rhonchi. No respiratory distress. 98% on room air. Abdominal: Positive bowel sounds x 4. Soft, nontender, without masses or organomegaly. No guarding or rebound tenderness. Neuro: A&O x3. No focal neurological deficits. : Catheter in place, draining hematuria without clots. Scant blood noted at the meatus. Testicles were significantly tender to palpation. Mild suprapubic tenderness. No CVA tenderness. Results & Data Results & Data Vital Signs (Past 12 Hours) Vital Signs Temp Pulse Pulse Resp BP BP Pulse Ox 11/02/23 15:35 86 16 127/90 98 11/02/23 12:22 16 11/02/23 12:22 36.6 C 110 H 18 101/70 95 O2 Del Method 11/02/23 15:35 Room Air 11/02/23 12:22 11/02/23 12:22 Room Air Diagnostic Findings Abdomen/Pelvis CT 11/02/23 14:[address] WITH IV CONTRAST CT DOSE: 791.53 mGy.cm HISTORY: painless hematuria, urinary retention TECHNIQUE: Multiaxial CT images of the abdomen and pelvis were performed following the use of intravenous contrast. A dose lowering technique was utilized adhering to the principles of ALARA. COMPARISON STUDY: None. FINDINGS: Mild dependent changes seen within the lungs posteriorly. Trace left pleural effusion. No pneumoperitoneum. No pneumatosis. No acute fractures. There are few scattered hypodense lesions within the liver with the largest in the left hepatic lobe measuring 3.2 cm. These favor cysts. There is also a rehan pheral enhancing lesion within the anterior segment of the right hepatic lobe measuring 5.6 cm. This favors a hemangioma. The main portal vein is patent. The gallbladder, pancreas, spleen, and adrenal glands are unremarkable. Multiple bilateral renal hypodense lesions are noted. The majority these are totally too small to characterize. Statistically these represent cysts. Dominant right renal cyst measures 2.3 cm. No hydronephrosis. 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 This measures 15 mm in diameter. However, the lumen appears patent. Calcified plaque within the normal caliber abdominal aorta. No pelvic lymphadenopathy or pelvic free fluid. Severely enlarged and heterogeneous prostate gland. There is a Malone catheter within the bladder. Hyperdense material within the bladder favors blood products given the patient's history of hematuria. There is a small amount of gas within the bladder lumen likely due to the catheterization. A few colonic diverticula. No evidence for acute diverticulitis. No bowel wall thickening or obstruction. Normal appendix. Mild bladder wall thickening. IMPRESSION: 1. Mild bladder wall thickening. This may be due to underdistention. 2. Hyperdense material within the bladder lumen suggestive of blood products in the setting of hematuria. 3. There is a Malone catheter within the bladder lumen. 4. Severe prostatomegaly. 5. No bowel wall thickening or obstruction. 6. A peripherally enhancing 5.6 cm lesion within the right hepatic lobe. This favors a hemangioma. 7. 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 This measures 15 mm in diameter. However, the lumen appears patent. 8. Additional findings as described above. ACT 112: Negative or not required by law. Electronically signed by: Otto Moran M.D. 11/02/2023 3:27 PM Supervising Physician Co-Signing Physician Notes Patient was seen and examined independently I discussed the case with Archana GONZALEZ I reviewed pertinent past medical social family history and also the plan of care and agree with the plan of care. Patient with recent STEMI in the beginning of October 2023 status post stent at the LAD presents with gross hematuria. Patient was struggling with urinary retention seeing urology and was scheduled for possible outpatient cystoscopy Lin night. Outpatient CT scan did show debris in the bladder consistent with clot. Patient is on dual antiplatelet agents. Patient had a bowel movement and developed gross hematuria is referred to the ER where he has mild leukocytosis and mild elevation of creatinine is recommended for admission for urology evaluation. Patient is without discomfort or distress at this present time. He does have some scant bleeding at the tip of his meatus his testicles are significantly tender otherwise cardiovascular he is stable. No abdominal pain Patient be admitted to our facility will have hydration intravenous of tract stone and urine culture. Urology consultation. He will continue on dual antiplatelet therapy at this time If need be cardiology will be consulted he typically sees Dr. Daigle. He was noted to have a depressed ejection fraction after his SC to 40 to 45% and is on Entresto therapy. Any exceptions will be noted below PG Care Time/CCT Total # of Minutes Spent Total Time Spent with Patient: Total time spent is greater than 50% in coordination of care (as documented) at patient's floor/unit and/or counseling patient: Coding Level of Care Code 88605 INT INP/OBS CARE MIN Diagnoses Hematuria R31.9 Hematuria type: unspecified type Presence of drug coated stent in LAD coronary artery Z95.5 (1) Hematuria Hematuria type: unspecified type Qualified Code(s): R31.9 - Hematuria, unspecified
[2023-11-02] MEDS ORDERED: POLYETHYLENE (MIRALAX) 17 GM PACK PO PRN (18:55)
[2023-11-02] MEDS ORDERED: ALUMINUM/MAGNESIUM SUSP 30 ML UDC PO PRN (18:55)
[2023-11-02] MEDS ORDERED: ONDANSETRON INJ 2 MG/ML 2 ML VIAL IV PRN (18:55)
[2023-11-02] MEDS: cefTRIAXone SODIUM 2,000 MG/50 ML BAG IV SCH (20:11)
[2023-11-02] MEDS: SODIUM CHLORIDE 0.9% 1,000 ML IV SCH (20:12)
[2023-11-02] MEDS: VALSARTAN/SACUBITRIL 26/24MG TAB PO SCH (20:17)
[2023-11-02] MEDS: METOPROLOL SUCC 25MG EXT REL TAB PO SCH (20:18)
[2023-11-02] MEDS: TAMSULOSIN HCL 0.4 MG CAP PO SCH (20:19)
[2023-11-02] MEDS: SILDENAFIL CITRATE 20 MG TABLET PO SCH (20:19)
[2023-11-02] MEDS ORDERED: SILDENAFIL CITRATE 20 MG TABLET PO SCH (21:00)
--- NOTE | 2023-11-02 21:00 | Urology Consultation ---
Date of Consultation November 02, 2023 Assessment & Plan (1) Hematuria: The patient has been admitted on the hospital service. From a urologic perspective we recommend the following: Malone catheter should be maintained. If Malone catheter becomes clogged manual flushing and irrigation can be performed by nursing staff Patient is receiving antibiotics in form of Rocephin. Urine culture has been sent and antibiotics be tailored based on these results The primary service is raise a concern that patient may require cystoscopy. This is not a straightforward procedure as the patient has had an MN approximately 2 weeks ago and is taking dual antiplatelet therapy, both of which would make any cystoscopy and intervention on the patient's prostate higher risk. The patient has been made n.p.o. after midnight which we will continue. The patient will be evaluated by our dayshift team on 11/03/2023 to determine if any cystoscopic intervention will be performed. History of Present Illness Reason for Consultation: Hematuria Attending Physician: Shyam Gonsales MD History of Present Illness This is a 72-year-old male who presented to the emergency department secondary to hematuria. The patient has a previous history of urinary retention and an underlying history of BPH. The patient has been scheduled tentatively for a cystoscopy with a potential TURP by Dr. Dukes in November of this year. Unfortunately the patient has suffered a heart attack approximately 2 weeks ago requiring a stent to his LAD. He also has been taking Plavix as well as aspirinaccording to his apron trimmer report on 10/27/2023 he needs to be on dual antiplatelet therapy for minimum of 6 months but they prefer up to 2 years. The patient was seen in the urology office on 10/29/2023 secondary to urinary retention and the patient had a 18 Arabic coud catheter placed without difficulty. The patient notes that he has been having clear yellow urine draining out of the urine until earlier today he had an episode of gross hematuria that he described as Parminder-Aid colored. He denies any other symptoms such as fevers, shakes, or chills. He denies any chest pain or shortness of breath. He denies any lightheadedness or dizziness. Because of the symptoms he presented to the emergency department. In the emergency department the patient has had labs and imaging which I independently reviewed. A CT scan of the abdomen pelvis showed the patient had mild bladder wall thickening. There are some hyperdense material in the bladder lumen suggestive of blood products. Malone catheter was noted to be appropriate placed in the bladder lumen. Severe prostamegaly was noted on this study. Labs included CBC were white blood cell count was elevated 12.9. Hemoglobin hematocrit 13.0 and 38.9. Platelet count was normal. Coagulation studies were noted to be normal. Chemistry profile showed sodium and potassium as well as the BUN were normal. His creatinine had a slight elevation at 1.4. A urinalysis was performed that showed cloudy urine with 3+ blood. The specimen was negative for nitrites and leukocyte Estrace. There were only 11-20 white blood cells per high-power field and no bacteria. At the time my interview the patient was resting comfortably bed he was in no distress At the time my interview the patient was resting comfortably bed he was in no distress. Concerning past medical history the patient has a history of BPH, coronary artery disease Concerning past surgical history the patient has had a cardiac catheterization with stent placement Allergies Allergy/AdvReac Type Severity Reaction Status Date / Time acetaminophen Allergy Intermediate HIVES Verified 10/29/23 10:17 Home Medications Medication Instructions Recorded Confirmed Type tamsulosin 0.4 mg capsule 0.4 mg PO BID 10/18/23 11/02/23 History aspirin 81 mg tablet,delayed 81 mg PO QAM #30 tabs 10/20/23 11/02/23 Rx release atorvastatin 40 mg tablet 40 mg PO QAM #90 tabs 10/20/23 11/02/23 Rx clopidogrel 75 mg tablet 75 mg PO QAM #90 tabs 10/20/23 11/02/23 Rx metoprolol succinate 25 mg 12.5 mg (1/2 x 25 mg) PO BID #90 10/20/23 11/02/23 Rx tablet,extended release 24 hr tabs sacubitril 24 mg-valsartan 26 mg 0.5 tab PO BID #90 tabs 10/20/23 11/02/23 Rx tablet (Entresto) sildenafil 100 mg tablet 50 mg PO HS 10/20/23 11/02/23 History Patient History Medical History Elevated PSA Family History Other Family history non-contributory Social History Smoking Status: Never smoker Second Hand Exposure: No; Do You Dip or Chew Tobacco: No; Hx Alcohol Use: Yes Alcohol type: wine Hx Substance Use: No Preferred Language: Setswana Communication Ability: Effective 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 Beliefs That Will Affect Care: None Current Living Situation: Spouse Feels Safe at Home: Yes Safety Concerns: Feels Safe At This Time Assistive Devices: Glasses Review of Systems Review of Systems: All systems reviewed & are unremarkable except as noted in HPI & below Physical Exam Constitutional: WD/WN, vitals as above Eyes: no conjunctival abnormality ENMT: Ears: no hearing impairment and no external ear abnormality Mouth: no oropharynx abnormality Neck: trachea midline Respiratory: normal respiratory effort; no respiratory distress and no labored breathing Cardiovascular: Rate/Rhythm: regular rate and regular rhythm Gastrointestinal (Abdomen): Soft and nontender to palpation Skin: no rashes Neurologic: moves all extremities Psychiatric: A+Ox3, euthymic affect Genitourinary: Malone catheter was noted to be present. The patient was draining Parminder-Aid colored urine. The catheter appeared to be patent and draining appropriately Results & Data Vital Signs (Past 12 Hours) Vital Signs Temp Pulse Pulse Resp BP BP Pulse Ox 11/02/23 18:55 37.0 C 96 H 18 156/78 H 98 11/02/23 15:35 86 16 127/90 98 11/02/23 12:22 16 11/02/23 12:22 36.6 C 110 H 18 101/70 95 O2 Del Method 11/02/23 18:55 Room Air 11/02/23 15:35 Room Air 11/02/23 12:22 11/02/23 12:22 Room Air PG Care Time/CCT Total # of Minutes Spent Total Time Spent with Patient: Total time spent is greater than 50% in coordination of care (as documented) at patient's floor/unit and/or counseling patient: Coding Level of Care Code 66893 INT INP/OBS CARE 3/75MIN Diagnoses Hematuria R31.9 Hematuria type: unspecified type (1) Hematuria Hematuria type: unspecified type Qualified Code(s): R31.9 - Hematuria, unspecified
[2023-11-02] MEDS: MELATONIN 3 MG TAB PO PRN (22:40)
[2023-11-03] MEDS ORDERED: CALAMINE/PRAMOXINE LOTION 180 APPLN/180 ML BTL EXT PRN (04:27)
[2023-11-03] MEDS: CETIRIZINE HCL 10 MG TABLET PO ONE (04:45)
[2023-11-03] MEDS: HYDROCORTISONE 2.5% CR 30 GM TUBE EXT PRN (04:46)
[2023-11-03 07:17] LABS: Hematocrit (blood only) 36.9 % (42.0-52.0); Hemoglobin 12.4 g/dl (14.0-18.0); Mean Corpuscular Hemoglobin 31.4 pg (25.0-34.0); Mean Corpuscular Hgb Conc 33.6 g/dL (32.0-36.0); Mean Corpuscular Volume 93.4 fL (80.0-100.0); Mean Platelet Volume 8.8 fL (9.4-12.4); Platelet Count 359 K/uL (130-400); RDW Coefficient of Variation 13.1 % (11.5-14.5); RDW Standard Deviation 44.9 fL (36.4-46.3); Red Blood Count 3.95 M/uL (4.70-6.10); White Blood Count 10.51 K/ul (4.8-10.8)
[2023-11-03 07:26] LABS: BUN Creatinine Ratio 10.2 (10-20); Calcium 8.5 mg/dl (8.6-10.3); Creatinine Clr Calc Pharmacy 58.4 ml/min; Est GFR (Non-African American) 61.3 ml/min; Potassium 3.9 mmol/L (3.5-5.1)
--- NOTE | 2023-11-03 08:23 | Hospitalist Progress Note ---
Date of Service November 03, 2023 Assessment & Plan (1) Hematuria: Plan: Patient presents with gross hematuria in setting of catheterization for urinary retention secondary to prostatomegaly, and dual antiplatelet therapy for recent STEMI on 10/18/23. - Seen by urology outpatient on 10/28 where indwelling catheter was replaced. - Finasteride was discontinued in the outpatient setting due to a drug-induced rash. - CT A/P on admission revealed mild bladder wall thickening, hyperdense material within the bladder lumen (suggestive of blood products) severe prostatomegaly, 5.6 cm lesion within the right hepatic lobe (favors a hemangioma). - Urine culture - prelim negative. Of note, urine culture from urology visit 10/28 was negative, however, new catheter does increase chance for UTI. - Ceftriaxone given in ED in setting of recent catheterization. > Ceftriaxone caused patient to break out in hives on his extremities. Discontinued due to this reaction. Continue to monitor urine culture, but will defer adding different antibiotic in setting of preliminarily negative urine culture from admission. - Suspect hematuria is multifactorial including catheter irritation, severe prostatomegaly, and anticoagulation. Management is complex as patient cannot hold his DAPT currently. - Continue tamsulosin 0.4 mg twice daily - Continue sildenafil 50 mg p.o. at HS - Urology consulted (2) Presence of drug coated stent in LAD coronary artery: Plan: Patient had anterolateral STEMI requiring emergent PCI and MICHAEL on 10/18/2023. 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 - Clinically, patient denies any cardiopulmonary symptoms on presentation. - Patient was noted to have a depressed EF of 40-45% after his STEMI. - Continue aspirin 81 mg daily - Continue atorvastatin 40 mg daily - Continue Plavix 75 mg daily - Continue metoprolol 12.5 mg BID - Continue Entresto 0.5 tab BID Plan Updated at bedside Discussed case with urology Reevaluated the patient with urology for multidisciplinary discussion on the plan moving forward VTE PPx: Continue dual antiplatelet therapy CODE STATUS: Full code Admission and Anticipated Discharge Date Admission Date: November 02, 2023 Supervising Physician Co-Signing Physician Notes Attending Attestation - Chart reviewed, care plan d/w ALEKSANDER Pearce. I agree w/ the sterling components of her documentation. Appreciate urology assistance. Jeremias Gentile MD Subjective Patient seen and evaluated at bedside with . He reports that he is feeling well overall, though still experiencing hematuria. Additionally, he notes that the ceftriaxone he received last night broke him out in hives on his extremities. He denies any swelling in his throat, mouth, lips, wheezing, or diarrhea from this allergic reaction. Patient also reports that he slept very poorly last night due to his room 8. His asked for a room change, specifically for a private room. I informed her that unfortunately that may not be possible due to the census on med/tele. Urology saw the patient and there is no plan for acute intervention. I returned later in the afternoon with Sri Ag NP from urology to reevaluate the patient and discussed the plan moving forward collectively. Urology did have to hand irrigate his Malone catheter due to it being blocked by clots. After, his urine did appear more normal. Patient's is very anxious and states that she is unable to perform irrigation at home. They would like to continue inpatient hospitalization overnight for monitoring. No additional c omplaints or concerns at this time. Physical Exam Physical Exam: General: No acute distress, nondiaphoretic, well-developed, well-nourished. Skin: Drug-induced rash on lower extremities bilaterally, improved. Hives on all extremities, resolving. Cardiac: Regular rate and rhythm without murmurs gallops or rubs. Pulm: Clear to auscultation bilaterally without wheezes, rales or rhonchi. No respiratory distress. 98% on room air. Abdominal: Soft, nontender, no nondistended. Bowel sounds present. Neuro: A&O x3. No focal neurological deficits. : Catheter in place, draining hematuria without clots after irrigation. Scant blood noted at the meatus. Mild suprapubic tenderness. No CVA tenderness. Results & Data Results & Data Vital Signs (Past 12 Hours) Vital Signs Temp Pulse Pulse Resp BP Pulse Ox O2 Del Method 11/03/23 07:42 37.2 C 84 16 125/74 95 Room Air 11/03/23 07:00 89 11/03/23 03:18 37.3 C 88 16 117/71 93 Room Air 11/02/23 23:36 84 11/02/23 22:21 37.4 C 84 18 133/81 96 Room Air Laboratory Results Reviewed CBC Reviewed BMP Reviewed urine culture PG Care Time/CCT Total # of Minutes Spent Total Time Spent with Patient: Total time spent is greater than 50% in coordination of care (as documented) at patient's floor/unit and/or counseling patient: Coding Level of Care Code 00159 SUB INP/OBS CARE 3/50MIN Diagnoses Hematuria R31.9 Hematuria type: unspecified type Presence of drug coated stent in LAD coronary artery Z95.5 (1) Hematuria Hematuria type: unspecified type Qualified Code(s): R31.9 - Hematuria, unspecified
[2023-11-03] MEDS: CLOPIDOGREL BISULFATE 75 MG TAB PO SCH (08:35)
[2023-11-03] MEDS: ASPIRIN 81 MG ECTAB PO SCH (08:35)
[2023-11-03] MEDS: ATORVASTATIN 40 MG TAB PO SCH (08:35)
--- NOTE | 2023-11-03 09:47 | Urology Progress Note ---
Date of Service November 03, 2023 Assessment & Plan (1) Hematuria: (2) Urinary retention: (3) BPH (benign prostatic hyperplasia): Plan 72 yo/M who is on dual antiplatelet therapy for recent STEMI 10/18/23 admitted with gross hematuria. CT abd pelvis on arrival demonstrated small amount of hyperdense material within the bladder lumen suggestive of blood products and severe prostatomegaly. - He is afebrile and hemodynamically stable. - Labs reviewed - WBC 10.51, Hemoglobin 12.4, Creatinine 1.18. - Urine culture pending. Urine culture 10/30 was negative. Received empiric Ceftriaxone. - Malone intact and draining tea colored/pink tinged urine without clot. - Unfortunately he failed his void trial last week in the urology clinic and a Malone catheter was replaced for management of urinary retention. - Suspect his hematuria may be secondary catheter irritation, underlying BPH, and anticoagulation. - For now, his catheter is draining adequately and he does not require any surgical intervention. - The catheter can be manually hand irrigated as needed for clots, retention, suprapubic pain. - He remains on dual antiplatelet therapy for recent UT. Urology can manage hematuria as needed. - Patient has expressed interest on a procedure for his prostate, however this is not straightforward given his anticoagulation and can be further discussed as an outpatient. Plan: - No plan for acute intervention. - Maintain Malone catheter. Ok to hand irrigate as needed for clots, retention, suprapubic pain. - Continue supportive care. - Follow culture. - Urology will follow along. Admission and Anticipated Discharge Date Admission Date: November 02, 2023 Subjective Pt seen at bedside this AM Awake, resting in bed on arrival No acute distress at bedside Reports he did not sleep well last night Malone draining tea colored/pink tinged urine without clot. 700ml urine output documented overnight. No suprapubic pain or pressure Denies fever, chills, nausea, vomiting Has been NPO Review of Systems Constitutional: as per Subjective / HPI Gastrointestinal: as per Subjective / HPI Genitourinary: + as per Subjective / HPI Physical Exam Constitutional: no acute distress Respiratory: no respiratory distress and no labored breathing Neurologic: awake Psychiatric: A+Ox3, euthymic affect Genitourinary: Malone intact and draining tea colored/pink tinged urine without clot Results & Data Vital Signs (Past 12 Hours) Vital Signs Temp Pulse Pulse Resp BP Pulse Ox O2 Del Method 11/03/23 07:42 37.2 C 84 16 125/74 95 Room Air 11/03/23 07:00 89 11/03/23 03:18 37.3 C 88 16 117/71 93 Room Air 11/02/23 23:36 84 11/02/23 22:21 37.4 C 84 18 133/81 96 Room Air PG Care Time/CCT Total # of Minutes Spent Total Time Spent with Patient: Total time spent is greater than 50% in coordination of care (as documented) at patient's floor/unit and/or counseling patient: Coding Level of Care Code 09561 SUB INP/OBS CARE 2/35MIN Diagnoses Hematuria R31.9 Hematuria type: unspecified type Urinary retention R33.9 BPH (benign prostatic hyperplasia) N40.1; R33.8 Lower urinary tract symptom detail: urinary retention Lower urinary tract symptom presence: symptoms present (1) Hematuria Hematuria type: unspecified type Qualified Code(s): R31.9 - Hematuria, unspecified (3) BPH (benign prostatic hyperplasia) Lower urinary tract symptom detail: urinary retention Lower urinary tract symptom presence: symptoms present Qualified Code(s): N40.1 - Benign prostatic hyperplasia with lower urinary tract symptoms; R33.8 - Other retention of urine
--- NOTE | 2023-11-03 23:03 | Communication Note ---
Date of Service: November 03, 2023 I was called by nursing staff at approximately 10:30 PM in regards to Malone catheter issues. Nursing staff noted that patient felt that his Malone catheter was leaking around the insertion site in his urethra. There is concern the patient's Malone catheter may have been clogged. I reported the bedside within 15 minutes. At the time of my initial encounter with the patient he noted he felt as though he had to urinate and he felt as though his bladder was full. He reported to me that he did have his Malone catheter flushed and irrigated once on day shift due to similar symptoms. With the patient's permission I was able to gently flush and irrigate the patient's catheter. With this maneuver I was able to treat some sediment/small blood clots. I then flushed and irrigated his catheter several more times and hooked back up to gravity drainage and the Malone catheter was draining clear urine at that time. The patient noted significant relief of his symptoms with this modality. I discussed my findings with nursing staff who was observing. After several minutes the patient's Malone catheter was reexamined and was still draining clear yellow urine. We will continue to flush and irrigate the patient's catheter on an as-needed basis if this problem recurs.
[2023-11-04 07:12] LABS: Hematocrit (blood only) 33.7 % (42.0-52.0); Hemoglobin 11.5 g/dl (14.0-18.0); Mean Corpuscular Hemoglobin 31.8 pg (25.0-34.0); Mean Corpuscular Hgb Conc 34.1 g/dL (32.0-36.0); Mean Corpuscular Volume 93.1 fL (80.0-100.0); Mean Platelet Volume 8.9 fL (9.4-12.4); Platelet Count 326 K/uL (130-400); RDW Coefficient of Variation 12.7 % (11.5-14.5); RDW Standard Deviation 43.7 fL (36.4-46.3); Red Blood Count 3.62 M/uL (4.70-6.10); White Blood Count 7.54 K/ul (4.8-10.8)
[2023-11-04 07:29] LABS: BUN Creatinine Ratio 9.4 (10-20); Calcium 8.2 mg/dl (8.6-10.3); Creatinine Clr Calc Pharmacy 58.9 ml/min; Est GFR (African American) 71.8 ml/min; Est GFR (Non-African American) 61.9 ml/min; Potassium 3.7 mmol/L (3.5-5.1)
--- NOTE | 2023-11-04 07:46 | Hospitalist Progress Note ---
Date of Service November 04, 2023 Assessment & Plan (1) Hematuria: Plan: Patient presents with gross hematuria in setting of catheterization for urinary retention secondary to prostatomegaly, and dual antiplatelet therapy for recent STEMI on 10/18/23 w/ aspirin/plavix Seen by urology outpatient on 10/28 where indwelling catheter was replaced. Finasteride was discontinued in the outpatient setting due to a drug-induced rash. CT A/P on admission revealed mild bladder wall thickening, hyperdense material within the bladder lumen (suggestive of blood products) severe prostatomegaly, 5.6 cm lesion within the right hepatic lobe (favors a hemangioma). Urine culture - prelim negative. Of note, urine culture from urology visit 10/28 was negative, however, new catheter does increase chance for UTI. Ceftriaxone given in ED in setting of recent catheterization. --> Ceftriaxone caused patient to break out in hives on his extremities. Discontinued due to this reaction. Continue to monitor urine culture, but will defer adding different antibiotic in setting of preliminarily negative urine culture from admission. Urology consulted 11/03 Suspect hematuria is multifactorial including catheter irritation, severe prost atomegaly, and anticoagulation. Management is complex as patient cannot hold his DAPT currently. Urology on consult, requirement of manual irrigation last evening due to reports of "leaking around catheter" and concerns for clogging w/ good results. Appreciate urology consult/recs/assistance Urine cx preliminary without growth Ceftriaxone discontinued after dose 11/01 due to rash, improved. Did report issues w/ diarrhea w/ Cipro in the past. No fever/issues/abx for now unless occurs and will monitor Fuller continued, irrigation as needed Continues on tamsulosin 0.4 mg twice daily, sildenafil 50mg HS Hgb 11.5 from 13.0 on admission, however has been ordered 4L NSS on admission. Given renal function stable, will DISCONTINUE further IVF given MOOKIE w/ Cr 1.43 resolved on labs 11/02 Monitor I&O Labs in AM (2) Presence of drug coated stent in LAD coronary artery: Plan: Patient had anterolateral STEMI requiring emergent PCI and MICHAEL on 10/18/2023. 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 Prior sx were of CRUSHING chest pain, has NOT recurred. Clinically, patient denies any cardiopulmonary symptoms on presentation. ECHO w/ EF 40-45% following STEMI EKG w/ CP order placed Has been stable on telemetry without issues/reports of chest pain -- can plan to downgrade this afternoon if remains without issue. Continue DAPT w/ Aspirin 81mg, Plavix, Continues home atorvastatin 40mg daily Continues on metoprolol 12.5mg BID, Entresto 0.5mg BID (3) MOOKIE (acute kidney injury): Plan: on admission, Cr bump to 1.48 IVF/hydration as above, stopped for today as renal function back to baseline/PO intake acceptable and I&O acceptable Renal dose meds/avoid nephrotoxins BMP in AM Plan Dispo: continued inpatient stay, updated in room 11/03 DVT proph: SCDs added. DAPT continues. Avoid heparin/lovenox given hematuria Admission and Anticipated Discharge Date Admission Date: November 02, 2023 Supervising Physician Co-Signing Physician Notes The patient was not seen by me. The chart was reviewed. Case discussed with ALEKSANDER Hernandes. Agree with assessment and plan Subjective Evaluated this morning, resting in bed. No further manual irrigation since Robert Hicks did this morning. Renal function stable, good PO intake. IVF to discontinue. No CP/SOB, prior STEMI w/ widowmaker and crushing CP but nothing since that time. He reports that was "a breeze" compared to what he's been dealing with currently. No further issues w/ rash since abx discontinued. Continued abx stay and urology managing hematuria given need for ongoing DAPT given NSTEMI/stent. Questions/concerns addressed at this time. Physical Exam Physical Exam: General: 72yo male laying in bed, in room, NAD HEENT: head atraumatic, normocephalic, trachea midline,mmm Resp: even, unlabored, no w/c/r, on room air CV: RRR, no signifciant m/r/g, no pitting edema GI: +BS, soft/nontender (except some slight suprapubic discomfort), slight distension : fuller draining darkened/bloody urine, no CVA tenderness MSK/Neuro: Nonfocal, no slurred speech/facial droop, following commands Psych: AOx3, cooperative with exam Results & Data Results & Data Vital Signs (Past 12 Hours) Vital Signs Temp Pulse Pulse Resp BP Pulse Ox O2 Del Method 11/04/23 01:48 36.9 C 76 16 113/61 94 Room Air 11/03/23 22:30 37 C 81 18 135/67 94 Room Air 11/03/23 21:42 76 Laboratory Results 11/04/23 Range/Units 06:18 WBC 7.54 (4.8-10.8) K/ul RBC 3.62 L (4.70-6.10) M/uL Hgb 11.5 L (14.0-18.0) g/dl Hct 33.7 L (42.0-52.0) % MCV 93.1 (80.0-100.0) fL MCH 31.8 (25.0-34.0) pg MCHC 34.1 (32.0-36.0) g/dL RDW Std Deviation 43.7 (36.4-46.3) fL RDW Coeff of Gregoria 12.7 (11.5-14.5) % Plt Count 326 (130-400) K/uL MPV 8.9 L (9.4-12.4) fL Sodium 141 (136-145) mmol/L Potassium 3.7 (3.5-5.1) mmol/L Chloride 113 H (98-107) mmol/L Carbon Dioxide 22 (21-32) mmol/L Anion Gap 6 (3-11) BUN 11 (6-23) mg/dl Creatinine 1.17 (0.6-1.4) mg/dl Est Cr Clr Drug Dosing 58.9 ml/min Est GFR ( Amer) 71.8 ml/min Est GFR (Non-Af Amer) 61.9 ml/min BUN/Creatinine Ratio 9.4 L (10-20) Glucose 93 (70-99(Fasting)) mg/dl Calcium 8.2 L (8.6-10.3) mg/dl Magnesium 2.0 (1.7-2.4) mg/dl PG Care Time/CCT Total # of Minutes Spent Total Time Spent with Patient: Total time spent is greater than 50% in coordination of care (as documented) at patient's floor/unit and/or counseling patient: Coding Level of Care Code 51216 SUB INP/OBS CARE 3/50MIN Diagnoses Hematuria R31.9 Hematuria type: unspecified type Presence of drug coated stent in LAD coronary artery Z95.5 MOOKIE (acute kidney injury) N17.9 (1) Hematuria Hematuria type: unspecified type Qualified Code(s): R31.9 - Hematuria, unspecified
--- NOTE | 2023-11-04 08:38 | Urology Progress Note ---
Date of Service November 04, 2023 Assessment & Plan (1) Hematuria: (2) Urinary retention: (3) BPH (benign prostatic hyperplasia): Plan 72 yo/M who is on dual antiplatelet therapy for recent STEMI 10/18/23 admitted with gross hematuria. CT abd pelvis on arrival demonstrated small amount of hyperdense material within the bladder lumen suggestive of blood products and severe prostatomegaly. - He is afebrile and hemodynamically stable. - Labs reviewed - WBC 7.54, Hemoglobin 11.5 (12.4 yesterday), Creatinine 1.17. - Urine culture negative. Received a dose of empiric Ceftriaxone. - Malone intact and draining light red urine without clot. - Unfortunately he failed his void trial last week in the urology clinic and a Malone catheter was replaced for management of urinary retention. - Suspect his hematuria is multifactorial including catheter irritation, severe prostatomegaly and anticoagulation. - For now, his catheter is draining adequately and he does not require any surgical intervention. - The catheter can be manually hand irrigated as needed for clots, retention, suprapubic pain. - If he has ongoing issues with catheter obstruction/hematuria, can consider upsizing the catheter to a 3-way and starting CBI. - He remains on dual antiplatelet therapy for recent HI. - Discussed with patient/ that he may continue to have intermittent hematuria. - Also discussed option to teach patient/ how to manually hand irrigate the catheter as needed at home but they are reluctant to do so. - Patient has expressed interest on a procedure for his prostate, however this is complex given his recent HI/anticoagulation and severe prostatomegaly. This can be further discussed as an outpatient. Plan: - No plan for acute intervention. - Maintain Malone catheter. Ok to hand irrigate as needed for clots, retention, suprapubic pain. - Continue supportive care. - Continue tamsulosin. - Continue to trend labs. - Will plan for outpatient follow-up with urology as scheduled. - Urology will follow along. Admission and Anticipated Discharge Date Admission Date: November 02, 2023 Subjective Pt seen at bedside this AM Awake, resting in bed on arrival No acute distress He required manual catheter irrigation last night due to obstruction Pt reports his urine was clear yellow until this morning after attempting to have a bowel movement Malone currently draining light red urine. No clots visualized at time of exam Denies f/c/n/v No significant pain at present Review of Systems Constitutional: as per Subjective / HPI Gastrointestinal: as per Subjective / HPI Genitourinary: + as per Subjective / HPI Physical Exam Constitutional: no acute distress Respiratory: no respiratory distress and no labored breathing Gastrointestinal (Abdomen): Inspection/Auscultation: abdomen not distended Neurologic: awake Psychiatric: A+Ox3, euthymic affect Genitourinary: Malone intact and draining w/hematuria Results & Data Vital Signs (Past 12 Hours) Vital Signs Temp Pulse Pulse Resp BP Pulse Ox O2 Del Method 11/04/23 07:47 36.9 C 82 18 126/75 95 Room Air 11/04/23 01:48 36.9 C 76 16 113/61 94 Room Air 11/03/23 22:30 37 C 81 18 135/67 94 Room Air 11/03/23 21:42 76 PG Care Time/CCT Total # of Minutes Spent Total Time Spent with Patient: Total time spent is greater than 50% in coordination of care (as documented) at patient's floor/unit and/or counseling patient: Coding Level of Care Code 79514 SUB INP/OBS CARE 2/35MIN Diagnoses Hematuria R31.9 Hematuria type: unspecified type Urinary retention R33.9 BPH (benign prostatic hyperplasia) N40.1; R33.8 Lower urinary tract symptom detail: urinary retention Lower urinary tract symptom presence: symptoms present (1) Hematuria Hematuria type: unspecified type Qualified Code(s): R31.9 - Hematuria, unspecified (3) BPH (benign prostatic hyperplasia) Lower urinary tract symptom detail: urinary retention Lower urinary tract symptom presence: symptoms present Qualified Code(s): N40.1 - Benign prostatic hyperplasia with lower urinary tract symptoms; R33.8 - Other retention of urine
[2023-11-04 19:55] VITALS: RESP 18
[2023-11-05 06:19] LABS: Hematocrit (blood only) 33.6 % (42.0-52.0); Hemoglobin 11.4 g/dl (14.0-18.0); Mean Corpuscular Hemoglobin 31.1 pg (25.0-34.0); Mean Corpuscular Hgb Conc 33.9 g/dL (32.0-36.0); Mean Corpuscular Volume 91.8 fL (80.0-100.0); Mean Platelet Volume 8.8 fL (9.4-12.4); Platelet Count 327 K/uL (130-400); RDW Coefficient of Variation 13.1 % (11.5-14.5); RDW Standard Deviation 44.1 fL (36.4-46.3); Red Blood Count 3.66 M/uL (4.70-6.10); White Blood Count 6.88 K/ul (4.8-10.8)
[2023-11-05 06:24] LABS: BUN Creatinine Ratio 9.3 (10-20); Calcium 8.6 mg/dl (8.6-10.3); Creatinine Clr Calc Pharmacy 58.4 ml/min; Est GFR (Non-African American) 61.3 ml/min; Potassium 3.4 mmol/L (3.5-5.1)
--- NOTE | 2023-11-05 07:40 | Hospitalist Progress Note ---
Date of Service November 05, 2023 Assessment & Plan (1) Hematuria: Plan: Patient presents with gross hematuria in setting of catheterization for urinary retention secondary to prostatomegaly, and dual antiplatelet therapy for recent STEMI on 10/18/23 w/ aspirin/plavix Seen by urology outpatient on 10/28 where indwelling catheter was replaced. Finasteride was discontinued in the outpatient setting due to a drug-induced rash. CT A/P on admission revealed mild bladder wall thickening, hyperdense material within the bladder lumen (suggestive of blood products) severe prostatomegaly, 5.6 cm lesion within the right hepatic lobe (favors a hemangioma). Urine culture - prelim negative. Of note, urine culture from urology visit 10/28 was negative, however, new catheter does increase chance for UTI. Ceftriaxone given in ED in setting of recent catheterization. --> Ceftriaxone caused patient to break out in hives on his extremities. Discontinued due to this reaction. Continue to monitor urine culture, but will defer adding different antibiotic in setting of preliminarily negative urine culture from admission. Urology consulted 11/03 Suspect hematuria is multifactorial including catheter irritation, severe prost atomegaly, and anticoagulation. Management is complex as patient cannot hold his DAPT currently. Urology on consult, requirement of manual irrigation last evening due to reports of "leaking around catheter" and concerns for clogging w/ good results. Appreciate urology consult/recs/assistance Urine cx preliminary without growth Ceftriaxone discontinued after dose 11/01 due to rash, improved. Did report issues w/ diarrhea w/ Cipro in the past. No fever/issues/abx for now unless occurs and will monitor Malone continued, irrigation as needed Continues on tamsulosin 0.4 mg twice daily, sildenafil 50mg HS Hgb 11.5 from 13.0 on admission, however has been ordered 4L NSS on admission. Given renal function stable, will DISCONTINUE further IVF given MOOKIE w/ Cr 1.43 resolved on labs 11/02 Monitor I&O 11/04 Hgb stable 11.4 off of further IVF. Continues on ASA/Plavix given recent STEMI K 3.4, PO replacement ordered Urology assistance appreciated OFF antibiotics, urine culture NEGATIVE on final Reports of possible blood in stool overnight? (2) Presence of drug coated stent in LAD coronary artery: Plan: Patient had anterolateral STEMI requiring emergent PCI and MICHAEL on 10/18/2023. 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 Prior sx were of CRUSHING chest pain, has NOT recurred. Clinically, patient denies any cardiopulmonary symptoms on presentation. ECHO w/ EF 40-45% following STEMI EKG w/ CP order placed Has been stable on telemetry without issues/reports of chest pain -- can plan to downgrade this afternoon if remains without issue. Continue DAPT w/ Aspirin 81mg, Plavix, Continues home atorvastatin 40mg daily Continues on metoprolol 12.5mg BID, Entresto 0.5mg BID (3) MOOKIE (acute kidney injury): Plan: on admission, Cr bump to 1.48 IVF/hydration as above, stopped for today as renal function back to baseline/PO intake acceptable and I&O acceptable Renal dose meds/avoid nephrotoxins BMP in AM Plan Dispo: continued inpatient stay, updated in room 11/03 DVT proph: SCDs added. DAPT continues. Avoid heparin/lovenox given hematuria Admission and Anticipated Discharge Date Admission Date: November 02, 2023 Results & Data Results & Data Vital Signs (Past 12 Hours) Vital Signs Temp Pulse Resp BP Pulse Ox O2 Del Method 11/05/23 03:02 36.9 C 74 18 115/72 96 Room Air 11/04/23 23:28 37.2 C 86 18 116/71 95 Room Air 11/04/23 19:54 36.3 C L 88 18 130/76 96 Room Air Laboratory Results 11/05/23 Range/Units 05:32 WBC 6.88 (4.8-10.8) K/ul RBC 3.66 L (4.70-6.10) M/uL Hgb 11.4 L (14.0-18.0) g/dl Hct 33.6 L (42.0-52.0) % MCV 91.8 (80.0-100.0) fL MCH 31.1 (25.0-34.0) pg MCHC 33.9 (32.0-36.0) g/dL RDW Std Deviation 44.1 (36.4-46.3) fL RDW Coeff of Gregoria 13.1 (11.5-14.5) % Plt Count 327 (130-400) K/uL MPV 8.8 L (9.4-12.4) fL Sodium 141 (136-145) mmol/L Potassium 3.4 L (3.5-5.1) mmol/L Chloride 111 H (98-107) mmol/L Carbon Dioxide 22 (21-32) mmol/L Anion Gap 8 (3-11) BUN 11 (6-23) mg/dl Creatinine 1.18 (0.6-1.4) mg/dl Est Cr Clr Drug Dosing 58.4 ml/min Est GFR ( Amer) 71.0 ml/min Est GFR (Non-Af Amer) 61.3 ml/min BUN/Creatinine Ratio 9.3 L (10-20) Glucose 93 (70-99(Fasting)) mg/dl Calcium 8.6 (8.6-10.3) mg/dl Magnesium 2.0 (1.7-2.4) mg/dl PG Care Time/CCT Total # of Minutes Spent Total Time Spent with Patient: Total time spent is greater than 50% in coordination of care (as documented) at patient's floor/unit and/or counseling patient: Coding Diagnoses Hematuria R31.9 Hematuria type: unspecified type Presence of drug coated stent in LAD coronary artery Z95.5 MOOKIE (acute kidney injury) N17.9 (1) Hematuria Hematuria type: unspecified type Qualified Code(s): R31.9 - Hematuria, unspecified
[2023-11-05] MEDS: POTASSIUM CHLORIDE CRTAB 20 MEQ TABCR PO SCH (08:10)
[2023-11-05 08:20] VITALS: PULSE 80
[2023-11-05 12:13] VITALS: TEMP 98.4; O2SAT 96
--- NOTE | 2023-11-05 12:28 | Urology Progress Note ---
Date of Service November 05, 2023 Assessment & Plan (1) Hematuria: (2) Urinary retention: (3) BPH (benign prostatic hyperplasia): Plan 72 yo/M who is on dual antiplatelet therapy for recent STEMI 10/18/23 admitted with gross hematuria. CT abd pelvis on arrival demonstrated small amount of hyperdense material within the bladder lumen suggestive of blood products and severe prostatomegaly. - He is afebrile with stable vitals. - Labs reviewed - WBC 6.88, Hemoglobin 11.4, Creatinine 1.18. - Urine culture negative. - On exam this morning, there was minimal drainage into the catheter bag. The catheter was then manually irrigated at bedside without difficulty with removal of a small amount of debris. Pt tolerated well. - Currently draining pink tinged urine without clot. Continue to monitor. - Unfortunately he failed his void trial last week in the urology clinic and a Malone catheter was replaced for management of urinary retention. - Suspect his hematuria is multifactorial including catheter irritation, severe prostatomegaly and anticoagulation. - No plan for acute intervention. - The catheter can be manually hand irrigated as needed for clots, retention, suprapubic pain. - He remains on dual antiplatelet therapy for recent IA. - Discussed with patient/ that he may continue to have intermittent hematuria. - I did review/teach the patient and his how to manually hand irrigate the catheter if needed at home. - Patient has expressed interest on a procedure for his prostate, however this is complex given his recent IA/anticoagulation and severe prostatomegaly. This can be further discussed as an outpatient. Plan: - No plan for acute intervention. - Patient is eager for discharge home today which is ok from a standpoint. - Reviewed signs/symptoms that would warrant return to hospital, patient and verbalized an understanding. - Maintain Malone catheter. Ok to hand irrigate as needed for clots, retention, suprapubic pain. - Continue tamsulosin. - Plan to follow-up with urology outpatient as scheduled. - Urology will sign-off. Please call with any further questions, concerns, or changes in patient status. Admission and Anticipated Discharge Date Admission Date: November 02, 2023 Subjective Pt seen at bedside this AM Awake, resting in bed on arrival No acute distress at bedside Pt reports his catheter was draining adequately all night until having a BM this morning. After the BM, he noticed leakage around the catheter and no drainage into the bag. Denies f/c/n/v No significant pain at present Review of Systems Constitutional: as per Subjective / HPI Genitourinary: + as per Subjective / HPI Physical Exam Constitutional: no acute distress Respiratory: no respiratory distress and no labored breathing Gastrointestinal (Abdomen): Inspection/Auscultation: abdomen not distended Neurologic: awake Psychiatric: A+Ox3, euthymic affect Genitourinary: Malone intact Results & Data Vital Signs (Past 12 Hours) Vital Signs Temp Pulse Resp BP Pulse Ox O2 Del Method 11/05/23 12:12 36.9 C 80 18 136/78 96 Room Air 11/05/23 08:19 36.3 C L 80 18 133/82 95 Room Air 11/05/23 03:02 36.9 C 74 18 115/72 96 Room Air PG Care Time/CCT Total # of Minutes Spent Total Time Spent with Patient: Total time spent is greater than 50% in coordination of care (as documented) at patient's floor/unit and/or counseling patient: Coding Level of Care Code 13172 SUB INP/OBS CARE 2/35MIN Diagnoses Hematuria R31.9 Hematuria type: unspecified type Urinary retention R33.9 BPH (benign prostatic hyperplasia) N40.1; R33.8 Lower urinary tract symptom detail: urinary retention Lower urinary tract symptom presence: symptoms present (1) Hematuria Hematuria type: unspecified type Qualified Code(s): R31.9 - Hematuria, unspecified (3) BPH (benign prostatic hyperplasia) Lower urinary tract symptom detail: urinary retention Lower urinary tract symptom presence: symptoms present Qualified Code(s): N40.1 - Benign prostatic hyperplasia with lower urinary tract symptoms; R33.8 - Other retention of urine
--- NOTE | 2023-11-05 13:03 | Discharge Summary ---
Discharge Summary Date of Service November 05, 2023 Principal Dx & Hospital Course #1 = Principal Diagnosis (1) Hematuria: Patient presents with gross hematuria in setting of catheterization for urinary retention secondary to prostatomegaly, and dual antiplatelet therapy for recent STEMI on 10/18/23 w/ aspirin/plavix Seen by urology outpatient on 10/28 where indwelling catheter was replaced. Finasteride was discontinued in the outpatient setting due to a drug-induced rash. CT A/P on admission revealed mild bladder wall thickening, hyperdense material within the bladder lumen (suggestive of blood products) severe prostatomegaly, 5.6 cm lesion within the right hepatic lobe (favors a hemangioma). Of note, urine culture from urology visit 10/28 was negative, however, new catheter does increase chance for UTI. Ceftriaxone given in ED in setting of recent catheterization. --> Ceftriaxone caused patient to break out in hives on his extremities. Discontinued due to this reaction. Urine culture NEGATIVE on final culture Urology consulted while inpatient, continued manual irrigation given need to continue DAPT given recent STEMI 10/17 Provided IV hydration, continued irrigation and hgb stable off of IVF with stable renal function Continued on flomax, sildenafil. Urology showed how to manually irrigate this morning 11/04 and given improvement in urine in tubing/stable hemoglobin and renal function with patient wishing to go home and was discussed with urology and repeat evaluation in the afternoon and ok'd for discharge with urology follow up. If issues, possible need for upgraded size catheter in follow up but discussed to return to ER with any fevers/abdominal pain, issues with catheter draining or for any other concerns. Was provided supplemental K prior to dc for K 3.4. Mag was wnl at 2.0. Good PO intake and moved bowels overnight. Of note, nursing note w/ report of blood in stool however was discussed w/ patient and was from the catheter site. Hgb again remaining stable and ok for discharge per patient's wishes. Needs PCP, [place] f/u [place] (2) Presence of drug coated stent in LAD coronary artery: Patient had anterolateral STEMI requiring emergent PCI and MICHAEL on 10/18/2023. 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 Prior sx were of CRUSHING chest pain, has NOT recurred. Clinically, patient denies any cardiopulmonary symptoms on presentation. ECHO w/ EF 40-45% following STEMI Has been stable on telemetry without issues/reports of chest pain , downgraded. Continued DAPT w/ Aspirin 81mg, Plavix, atorvastatin 40mg, metoprolol 12.5mg BID and entresto (3) MOOKIE (acute kidney injury): on admission Cr bump to 1.48 IVF x 4 L ordered on admission but stopped after 3 L given return to baseline and good PO intake. Renal function remained stable OFF of IVF with good output with manual irrigation as needed Avoided nephrotoxins/renal dosed meds as needed F/u urology for above DVT proph: SCDs/ambulation while inpatient. No chemoproph given hematuria. No evidence for DVT on exam Plan discharged home with /continued manual irrigation as needed and outpatient follow up with Urology Notes For Next Care Provider Continued on DAPT w/ ongoing hematuria improving on exam with stable hemoglobin and patient wishes to return home. Urine culture was NEGATIVE and WBC wnl/afebrile. Patient to monitor for any issues w/ catheter/return to ER symptoms discussed Will need Urology outpt f/u as well as likely surgery in future for enlarged prostate however will need to be addressed once safely able to undergo given recent STEMI Of note, did have 5.6 cm lesion within R hepatic lobe on CTAP on admission. Favors hemangioma but will need f/u outpatient. 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 This measures 15 mm in diameter. However, the lumen appears patent. Outpt f/u for continued screening, asymptomatic at this time Medication Changes From Visit None Admission HPI Per Admitting Provider Mr. Amin is a pleasant 72 year old male with PMH including BPH with LUTS, now with chronic indwelling Fuller catheter, anterior STEMI on 10/18/2023, hypertension, hyperlipidemia, and anxiety. He presented from home with concern of hematuria. Vitals on admission are stable: normotensive, HR in the 80s, afebrile. Labs on admission are significant for leukocytosis of 12.96, Hgb of 13.0, and Cr of 1.43. Imaging on admission reveals mild bladder wall thickening, hyperdense material within the bladder lumen (suggestive of blood products) severe prostatomegaly, 5.6 cm lesion within the right hepatic lobe (favors a hemangioma). Patient reports that he took all of his regular morning medications today at 10:00, this includes his aspirin and Plavix; only recent medication change is discontinuing finasteride due to it causing a drug-induced rash. He does not use supplemental oxygen at baseline. No CPAP at night. Patient denies any discomfort or pain on admission. Patient with recent history of anterior STEMI for which patient underwent emergent PCI of proximal LAD with a drug eluting stent on 10/18/2023, now on anticoagulation (clopidogrel). Has been dealing with intermittent hematuria since. Due to urinary retention, he had a Fuller catheterization last admission. Patient saw urology 4 days ago where he failed a voiding trial and indwelling catheter was replaced. He reports that he was having clear yellow urine draining out of his catheter since his urology appointment until today, 11/02/2023. He states he had a bowel movement this morning which triggered a significant amount of hematuria and some blood clots as well as radha blood outside of the catheter. Patient denies any pain associated with this episode t leah. On exam, tenderness was elicited with palpation of his scrotum and mild suprapubic tenderness, but no flank pain. ED discussed case with urology who believes this bleeding may be coming from the prostate and noting that he needs a cystoscopy. ROS: Patient endorses hematuria, urinary retention, rash on lower extremities bilaterally. Patient denies fever, chills, sweats, dizziness, lightheadedness, headache, chest pain, pleuritic CP, SOB, cough, abdominal pain, N/V/D, changes in bowel habits, saddle anesthesia, or numbness or tingling down the legs. Admission Exam Per Admitting Provider General: No acute distress, nondiaphoretic, well-developed, well-nourished. Skin: Drug-induced rash on lower extremities bilaterally. Cardiac: Regular rate and rhythm without murmurs gallops or rubs. Pulm: Clear to auscultation bilaterally without wheezes, rales or rhonchi. No respiratory distress. 98% on room air. Abdominal: Positive bowel sounds x 4. Soft, nontender, without masses or organomegaly. No guarding or rebound tenderness. Neuro: A&O x3. No focal neurological deficits. : Catheter in place, draining hematuria without clots. Scant blood noted at the meatus. Testicles were significantly tender to palpation. Mild suprapubic tenderness. No CVA tenderness. Discharge Exam General: 72yo male sitting up in bed upon arrival, getting ready to use the bathroom, NAD HEENT: head atraumatic, normocephalic, trachea midline,mmm Resp: even, unlabored, no w/c/r, on room air CV: RRR, no significant m/r/g, no pitting edema GI: +BS, soft/nontender : fuller bad with blood tinged urine in bag but clearer in the tubing no CVA tenderness MSK/Neuro: Nonfocal, no slurred speech/facial droop, following commands Psych: AOx3, cooperative with exam Discharge Plan Discharge Items Patient Disposition: Home - Self-Care Reason For Visit: HEMATURIA Discharge Diagnosis: Hematuria Condition on Discharge: Fair Goals: You have been hospitalized for an acute medical problem. During your stay at [facility], we have made an effort to correct the problem that brought you to the hospital while keeping you as comfortable as possible. Medications were used to bring your condition under control and your discharge instructions will include directions for any medications you should take after leaving the hospital. Please make sure you see your Primary Care Provider as part of your follow up plan. Activity: As commented below Non-emergency contact: Primary Care Provider and Urologist Call non-emergency contact if: you have any medication questions, your symptoms worsen, your pain is not controlled, your pain is unusual for you and you have a fever Follow-up/Referrals: Irvin Coffey MD [Physician] - (UROLOGY WILL CALL YOU TO MAKE A FOLLOW-UP APPOINTMENT. IF YOU DO NOT HEAR FROM THEM WITHIN A FEW DAYS, PLEASE CONTACT THEIR OFFICE.) Daria Mcdaniel MD [Primary Care Provider] - (PLEASE CALL YOUR PRIMARY CARE PROVIDER TO SCHEDULE A HOSPITAL DISCHARGE FOLLOW-UP APPOINTMENT WITHIN 7-10 DAYS) Diet: Heart Healthy Addtl Attending Provider Instructions: You have been hospitalized for blood in the urine/catheter. Imaging was obtained and Urology was consulted. Your hemoglobin level has been stable off of IV fluids and Urology would like you to continue to manually irrigate as possible. Urine culture was negative. You do have a very large prostate that will need follow up in the future but unfortunately will have to wait for now until safe to come off of your antiplatelet medication with plavix in follow up. You should follow up with primary care and urology at discharge to monitor your status since hospitalization. Please return to the ER with any increased blood in your urine/tubing, issues with drainage, increased abdominal discomfort, fever, chest pain/shortness of breath, or for any other symptoms concerning for you. It has been a pleasure being a part of the medical team providing for you while you have been in the hospital. Take care! Pending Studies at Discharge: No Stand-Alone Forms: [facility] ScaleMP, Smoking Cessation Medications and DC Order Prescriptions: Continued tamsulosin 0.4 mg capsule 0.4 mg PO BID atorvastatin 40 mg Tablet 40 mg PO QAM Qty: 90 3RF clopidogrel 75 mg Tablet 75 mg PO QAM Qty: 90 3RF metoprolol succinate 25 mg Tablet Extended Release 24 Hr 12.5 mg PO BID Qty: 90 3RF Entresto 24-26 mg Tablet 0.5 tab PO BID Qty: 90 3RF aspirin 81 mg Tablet,Delayed Release (Dr/Ec) 81 mg PO QAM Qty: 30 3RF sildenafil 100 mg tablet 50 mg PO HS Hold Instructions: Resume on 10/27/23. skip tonight's dose of sildenafil and we will have you discuss with Dr. Daigle tomorrow. Discharge Orders: Discharge Order (Routine); Ordered 11/05/23 Ordered By: Sri Niño Admission Data Admit Date/Time: 11/02/23 17:02 Attending Provider: Erasmo Jackson Admit Provider: Shyam Gonsales Primary Care Provider: Daria Mcdaniel Other Providers: William Talbert; Irvin Coffey Other Interventions: Discharge Summary Assessment (RN) Last Done: 11/05/23 14:40 Hospital Stay Data Consultations 11/02/23 16:45 ED Decision to Admit Stat 11/02/23 18:27 Consult Urology Routine Diagnostic Imagining Performed Abdomen/Pelvis CT 11/02/23 14:[address] WITH IV CONTRAST CT DOSE: 791.53 mGy.cm HISTORY: painless hematuria, urinary retention TECHNIQUE: Multiaxial CT images of the abdomen and pelvis were performed following the use of intravenous contrast. A dose lowering technique was utilized adhering to the principles of ALARA. COMPARISON STUDY: None. FINDINGS: Mild dependent changes seen within the lungs posteriorly. Trace left pleural effusion. No pneumoperitoneum. No pneumatosis. No acute fractures. There are few scattered hypodense lesions within the liver with the largest in the left hepatic lobe measuring 3.2 cm. These favor cysts. There is also a peripheral enhancing lesion within the anterior segment of the right hepatic lobe measuring 5.6 cm. This favors a hemangioma. The main portal vein is patent. The gallbladder, pancreas, spleen, and adrenal glands are unremarkable. Multiple bilateral renal hypodense lesions are noted. The majority these are totally too small to characterize. Statistically these represent cysts. Dominant right renal cyst measures 2.3 cm. No hydronephrosis. 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 This measures 15 mm in diameter. However, the lumen appears patent. Calcified plaque within the normal caliber abdominal aorta. No pelvic lymphadenopathy or pelvic free fluid. Severely enlarged and heterogeneous prostate gland. There is a Fuller catheter within the bladder. Hyperdense material within the bladder favors blood products given the patient's history of hematuria. There is a small amount of gas within the bladder lumen likely due to the catheterization. A few colonic diverticula. No evidence for acute diverticulitis. No bowel wall thickening or obstruction. Normal appendix. Mild bladder wall thickening. IMPRESSION: 1. Mild bladder wall thickening. This may be due to underdistention. 2. Hyperdense material within the bladder lumen suggestive of blood products in the setting of hematuria. 3. There is a Fuller catheter within the bladder lumen. 4. Severe prostatomegaly. 5. No bowel wall thickening or obstruction. 6. A peripherally enhancing 5.6 cm lesion within the right hepatic lobe. This favors a hemangioma. 7. 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 This measures 15 mm in diameter. However, the lumen appears patent. 8. Additional findings as described above. ACT 112: Negative or not required by law. Electronically signed by: Otto Moran M.D. 11/02/2023 3:27 PM Discharge Instructions Given to Patient (Per Discharging Provider) You have been hospitalized for blood in the urine/catheter. Imaging was obtained and Urology was consulted. Your hemoglobin level has been stable off of IV fluids and Urology would like you to continue to manually irrigate as possible. Urine culture was negative. You do have a very large prostate that will need follow up in the future but unfortunately will have to wait for now until safe to come off of your antiplatelet medication with plavix in follow up. You should follow up with primary care and urology at discharge to monitor your status since hospitalization. Please return to the ER with any increased blood in your urine/tubing, issues with drainage, increased abdominal discomfort, fever, chest pain/shortness of breath, or for any other symptoms concerning for you. It has been a pleasure being a part of the medical team providing for you while you have been in the hospital. Take care! Supervising Physician Co-Signing Physician Notes The patient was not seen by me. The chart was reviewed. Case discussed with ALEKSANDER Hernandes. Agree with assessment and plan Total Time Total Time Spent Total Time Spent (In Minutes): 40 Coding Level of Care Code INP/OBS EV SAME DAY LV 3,85MIN Diagnoses Hematuria R31.9 Hematuria type: unspecified type Presence of drug coated stent in LAD coronary artery Z95.5 MOOKIE (acute kidney injury) N17.9
[2023-11-05 14:42] VITALS: BP 156/78
== END 2023-11-05 15:00 | disposition home or self-care (01) | DRG 698 ==
LOC: ED 12:22 → 2N 17:02 → SUATTDRO 17:02 → 2N 20:54